=== PATIENT | male | born 1960 | race American Indian/Alaskan Native ===

== ENCOUNTER 2021-03-28 17:47 | Inpatient (IN) | payer OTHER ==
[2021-03-28] MEDS ORDERED: fentaNYL 100 MCG/2 ML INJ IV ONE (20:48)
[2021-03-28] MEDS ORDERED: SODIUM CHLORIDE 0.9% 1000 ML 1,000 ML IV ONE (20:48)
--- NOTE | 2021-03-28 20:50 | Emergency Department Report ---
HPI - General Chief Complaint: Syncope Time Seen by Provider: 03/28/21 20:35 - HPI HPI: [place] The patient is a 60-year-old male present with a chief complaint of syncope and left hip pain. Patient states he was in a supermarket and had just finished checking out when he began feeling lightheaded and dizzy and the patient states his next memory is waking up on the floor. Patient now complains of severe pain in his left hip. Patient has a history of bilateral hip replacement stating his left hip was replaced approximately 10 years ago. ED Past Medical Hx - Past Medical History Hx Hypertension: Yes Hx HIV: Yes (Last CD4 in the 400s Fall 2020) - Surgical History Hx Appendectomy: Yes Additional Surgical History: Bilateral hip replacement, herniorrhaphy, appendectomy - Family History Family history: no significant - Social History Smoking Status: Never Smoker Substance Use Type: None (Denies illicit drug) ED Review of Systems ROS: Stated complaint: SNYCOPE Other details as noted in HPI Constitutional: no symptoms reported Eyes: denies: eye pain ENT: denies: throat pain Respiratory: no symptoms reported Cardiovascular: denies: chest pain Endocrine: no symptoms reported Gastrointestinal: denies: abdominal pain Genitourinary: denies: dysuria Musculoskeletal: arthralgia Neurological: other (Lightheadedness, syncope). denies: headache Physical Exam - Physical Exam Vital Signs: Vital Signs 03/28/21 17:50 Temperature 98.1 F Pulse Rate 78 Respiratory 18 Rate Blood Pressure 107/88 [Left] O2 Sat by Pulse 99 Oximetry Physical Exam: GENERAL: The patient is well-developed well-nourished male lying on stretcher not appearing to be in acute distress. [] HEENT: Normocephalic. Atraumatic. Extraocular motions are intact. Patient has moist mucous membranes. NECK: Supple. Trachea midline CHEST/LUNGS: Clear to auscultation. There is no respiratory distress noted. HEART/CARDIOVASCULAR: Regular. There is no tachycardia. 2+ left DP ABDOMEN: Abdomen is soft, nontender. Patient has normal bowel sounds. There is no abdominal distention. SKIN: There is no rash. There is no edema. There is no diaphoresis. NEURO: The patient is awake, alert, and oriented. The patient is cooperative. The patient has no focal neurologic deficits. The patient has normal speech. Patient able to wiggle toes of left foot MUSCULOSKELETAL: The left lower extremity is shortened and internally rotated ED Course Vital Signs 03/28/21 17:50 Temperature 98.1 F Pulse Rate 78 Respiratory 18 Rate Blood Pressure 107/88 [Left] O2 Sat by Pulse 99 Oximetry - Consultations Consultation #1: 03/28/21 23:11 Nephrology paged 03/28/21 23:[address] Shah-recommends Kayexalate 60 g in addition to other meds already ordered. Recommends D5 with 3 A of sodium bicarb at 80 to 100 mL an hour. Recommends repeat BMP in 4 hours and if potassium is not trending down to call him. ED Medical Decision Making - Lab Data Result diagrams: 03/28/21 21:06 03/28/21 21:06 Laboratory Tests 03/28/21 03/28/21 03/28/21 21:06 21:06 21:06 WBC 12.1 H RBC 3.27 L Hgb 10.9 L Hct 33.6 L MCV 103 H MCH 33 H MCHC 33 RDW 12.6 L Plt Count 282 Lymph % (Auto) 19.8 [place] % (Auto) 6.1 Eos % (Auto) 0.5 Baso % (Auto) 0.5 Lymph # (Auto) 2.4 [place] # (Auto) 0.7 Eos # (Auto) 0.1 Baso # (Auto) 0.1 Seg Neutrophils % 73.1 H Seg Neutrophils # 8.9 H PT 13.6 INR 0.94 APTT 28.2 Sodium 134 L Potassium 6.5 H* Chloride 105.6 Carbon Dioxide 14 L Anion Gap 20 BUN 65 H Creatinine 2.3 H Estimated GFR 35 BUN/Creatinine Ratio 28 Glucose 133 H Calcium 9.6 Magnesium 2.30 Total Creatine Kinase 67 CK-MB (CK-2) 4.5 H CK-MB (CK-2) Rel Index 6.7 H Troponin T 0.054 H Triglycerides 258 H Cholesterol 176 LDL Cholesterol Direct 100 HDL Cholesterol 25 L Cholesterol/HDL Ratio 7.04 - EKG Data -: EKG Interpreted by Hi EKG shows normal: sinus rhythm Rate: normal - EKG Data When compared to previous EKG there are: previous EKG unavailable Interpretation: other (No ischemic changes seen. non-Peaked T waves) - Radiology Data Radiology results: report reviewed (Left hip x-ray), image reviewed (Left hip x- ray) interpreted by me: Left hip x-ray- acute fracture femoral shaft proximally [facility] [address] [place] [address] XRay Report Signed Patient: JUANITO CHRISTOPHER MR#: [id number] : 1960 Acct:[id number] Age/Sex: 60 / M ADM Date: 03/28/21 Loc: ED Attending Dr: Ordering Physician: RHONDA HARMAN MD Date of Service: 03/28/21 Procedure(s): XR hip 2-3V LT Accession Number(s): [id number] cc: RHONDA HARMAN MD Fluoro Time In Minutes: LEFT HIP 3 VIEWS INDICATION / CLINICAL INFORMATION: Fall with left hip pain.. COMPARISON: None available. FINDINGS: BONES / JOINT(S): There are bilateral hip prostheses. There is an acute, oblique fracture of the proximal left femur extending from the base of the greater trochanter laterally and extending inferiorly and medially into the subtrochanteric region. Mild displacement of the fracture fragments is noted. There is no evidence of dislocation. There is a transitional lumbosacral segment area SOFT TISSUES: No significant abnormality. ADDITIONAL FINDINGS: None. IMPRESSION: Acute fracture of the proximal femoral shaft which extends towards the base of the greater trochanter. Signer Name: Chandler Mckenzie MD Signed: 03/28/2021 9:48 PM Workstation Name: [id number] Transcribed By: RT Dictated By: Chandler Mckenzie MD Electronically Authenticated By: Chandler Mckenzie MD Signed Date/Time: 03/28/212147 DD/ 46 TD/TT: Print Cancel - Medical Decision Making Patient found to be hyperkalemic. Not stable for transfer to another facility at this time. Will admit here for stabilization - Differential Diagnosis Syncope, hip dislocation, hip fracture Critical care attestation.: If time is entered above; I have spent that time in minutes in the direct care of this critically ill patient, excluding procedure time. ED Disposition Clinical Impression: Fracture of left hip, Hyperkalemia, Renal insufficiency Disposition: ADMITTED INPATIENT Is pt being admited?: Yes Does the pt Need Aspirin: No Condition: Fair Referrals: PRIMARY CARE, [Primary Care Provider] - 3-5 Days Time of Disposition: 23:34 (Hospitalist called (Dr Nicole))
[2021-03-28 21:42] LABS: Basophils # (Auto) 0.1 K/mm3 (0.0-0.1); Basophils % (Auto) 0.5 % (0.0-1.8); Eosinophils # (Auto) 0.1 K/mm3 (0.0-0.4); Eosinophils % (Auto) 0.5 % (0.0-4.3); Hematocrit 33.6 % (35.5-45.6); Hemoglobin 10.9 gm/dl (11.8-15.2); Lymphocytes # (Auto) 2.4 K/mm3 (1.2-5.4); Lymphocytes % (Auto) 19.8 % (13.4-35.0); Mean Corpuscular HGB Conc 33 % (32-34); Mean Corpuscular Volume 103 fl (84-94); Monocytes # (Auto) 0.7 K/mm3 (0.0-0.8); Monocytes % (Auto) 6.1 % (0.0-7.3); Platelet Count 282 K/mm3 (140-440); Red Blood Count 3.27 M/mm3 (3.65-5.03); Red Cell Distribution Width 12.6 % (13.2-15.2)
[2021-03-28 21:50] LABS: Creatine Kinase MB 4.5 ng/mL (0.0-4.0)
[2021-03-28 21:51] LABS: Calcium 9.6 mg/dL (8.4-10.2)
--- NOTE | 2021-03-28 21:53 | XRay Report ---
LEFT HIP 3 VIEWS INDICATION / CLINICAL INFORMATION: Fall with left hip pain.. COMPARISON: None available. FINDINGS: BONES / JOINT(S): There are bilateral hip prostheses. There is an acute, oblique fracture of the prox imal left femur extending from the base of the greater trochanter laterally and extending inferiorly and medially into the subtrochanteric region. Mild displacement of the fracture fragments is noted. T here is no evidence of dislocation. There is a transitional lumbosacral segment area SOFT TISSUES: No significant abnormality. ADDITIONAL FINDINGS: None. IMPRESSION: Acute fracture of the proximal femoral shaft which extends towards the base of the greate r trochanter. Signer Name: Chandler Mckenzie MD Signed: 03/28/2021 9:48 PM Workstation Name: [id number]
[2021-03-28 22:02] LABS: Chol/HDL Ratio 7.04 %; INR 0.94 (0.87-1.13)
[2021-03-28 22:03] LABS: Partial Thromboplastin Time 28.2 Sec. (24.2-36.6)
--- NOTE | 2021-03-28 22:25 | Cat Scan Report ---
CT HEAD WITHOUT CONTRAST INDICATION / CLINICAL INFORMATION: Syncope. TECHNIQUE: All CT scans at this location are performed using CT dose reduction for ALARA by means of automated e xposure control. COMPARISON: Head CT 05/01/2012 FINDINGS: HEMORRHAGE: No evidence of intracranial hemorrhage or extra-axial fluid collection. EXTRA-AXIAL SPACES: Cortical sulci and sylvian fissures are within normal limits for the patient's ag e of 60 years. Basilar cisterns have an unremarkable appearance. VENTRICULAR SYSTEM: The third and lateral ventricles are enlarged out of proportion to the cortical s ulci. This probably reflects the presence of central greater than cortical atrophy. This has progress ed since baseline study 05/01/2012. CEREBRAL PARENCHYMA: Periventricular and deep white matter lucency is observed. This is probably seco ndary to microvascular ischemic change. There is no indication of recent infarction. No areas of ence phalomalacia are identified. MIDLINE SHIFT OR HERNIATION: There is no mass effect. CEREBELLUM / BRAINSTEM: Brainstem and cerebellum have an unremarkable appearance. 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 MIDLINE STRUCTURES:No abnormalities of the pituitary gland or pineal region are observed INTRACRANIAL VESSELS:Calcified atherosclerotic plaque is present along the course of the cavernous se gments of both internal carotid arteries. Similar findings are seen at the distal vertebral arteries. ORBITS: visualized portions of the orbits have an unremarkable appearance. SOFT TISSUES of HEAD: No significant abnormality. CALVARIUM: Evaluation of bone windows reveals no abnormalities. PARANASAL SINUSES / MASTOID AIR CELLS: Paranasal sinuses are free from inflammatory mucosal disease. Mastoid air cells are normally pneumatized. IMPRESSION: 1. Central greater than cortical parenchymal volume loss and microvascular ischemic change. 2. No acute intracranial abnormality. Signer Name: Benjamin Ayon MD Signed: 03/28/2021 10:21 PM Workstation Name: [id number]
[2021-03-28] MEDS ORDERED: INSULIN REGULAR, HUMAN 100 UNITS/1 ML IV ONE (22:30)
[2021-03-28] MEDS ORDERED: SODIUM BICARB 8.4% 50 MEQ/50 ML SYRINGE IV ONE (22:30)
[2021-03-28] MEDS ORDERED: DEXTROSE 50% IN WATER (25GM) 50 ML SYRINGE IV ONE (22:30)
[2021-03-28] MEDS ORDERED: CALCIUM GLUCONATE 1,000 MG in SODIUM CHLORIDE 0.9% 100 ML IV ONE (23:10)
[2021-03-28] MEDS ORDERED: ALBUTEROL 2.5 MG/3 ML NEBU IH ONE (23:11)
[2021-03-28] MEDS ORDERED: SODIUM POLYSTYRENE 15 GM/60 ML ORAL LIQD PO ONE (23:19)
[2021-03-28] MEDS ORDERED: HYDROmorphone 1 MG/1 ML INJ IV ONE (23:26)
[2021-03-28] MEDS ORDERED: SODIUM BICARBONATE 150 MEQ in DEXTROSE 5% IN WATER 1,000 ML IV ONE (23:50)
[2021-03-29] MEDS ORDERED: MAGNESIUM HYDROXIDE (MOM) ORAL LIQD UDC PO PRN (00:46)
[2021-03-29] MEDS ORDERED: ACETAMINOPHEN 325 MG TAB PO PRN (00:46)
[2021-03-29] MEDS ORDERED: SODIUM CHLORIDE 0.9% 1000 ML 1,000 ML IV SCH (01:00)
--- NOTE | 2021-03-29 01:26 | History and Physical Report ---
History of Present Illness Date of examination: 03/29/21 Date of admission: 03/29/21 00:01 Chief complaint: Left hip pain Syncope History of present illness: 60-year-old -[place] male with known history of hypertension, HIV and history of bilateral hip replacement brought into the emergency room today for evaluation of left hip pain and syncope. Patient was at a grocery store and I finished checking out when he felt lightheaded and dizzy and subsequently found himself on the floor. He denies any head injury and denies any headache, denies any blurry vision and no diaphoresis. Patient denies any chest pain or shortness of breath, no nausea vomiting no abdominal pain. Denies any hematuria or dysuria. Upon arrival in the emergency room today he complained of severe pain in his left hip. Work-up in the emergency room today, x-ray of the hip reveals acute fracture of the proximal femoral shaft which extends towards the base of the greater troc hanter. CT scan of the head shows no acute intracranial abnormality. Past History Past Medical History: diabetes, HIV/AIDS (CD4 count in the 400s-in the fall ), hypertension Past Surgical History: appendectomy, Other (Bilateral hip replacement, herniorrhaphy, appendectomy) Social history: no significant social history Family history: no significant family history Medications and Allergies Allergies Allergy/AdvReac Type Severity Reaction Status Date / Time No Known Allergies Allergy Unverified 03/28/21 17:49 Active Meds: Active Medications Acetaminophen (Acetaminophen 325 Mg Tab) 650 mg PO Q4H PRN PRN Reason: Pain MILD(1-3)/Fever >100.5/OLIVAREZ Sodium Bicarbonate 150 meq/ (Dextrose) 1,150 mls @ 100 mls/hr IV DIRECT ONE Stop: 03/29/21 11:19 Last Admin: 03/28/21 23:51 Dose: 100 mls/hr Sodium Chloride (Nacl 0.9% 1000 Ml) 1,000 mls @ 125 mls/hr IV DIRECT SUELLEN Magnesium Hydroxide (Magnesium Hydroxide (Mom) Oral Liqd Udc) 30 ml PO Q4H PRN PRN Reason: Constipation Morphine Sulfate (Morphine 2 Mg/1 Ml Inj) 2 mg IV Q4H PRN PRN Reason: Pain, Moderate (4-6) Morphine Sulfate (Morphine 4 Mg/1 Ml Inj) 4 mg IV Q4H PRN PRN Reason: Pain , Severe (7-10) Ondansetron HCl (Ondansetron 4 Mg/2 Ml Inj) 4 mg IV Q8H PRN PRN Reason: Nausea And Vomiting Sodium Chloride (Sodium Chloride 0.9% 10 Ml Flush Syringe) 10 ml IV BID SUELLEN Sodium Chloride (Sodium Chloride 0.9% 10 Ml Flush Syringe) 10 ml IV PRN PRN PRN Reason: LINE FLUSH Review of Systems Constitutional: no fever, no chills Ears, nose, mouth and throat: no nasal congestion, no sore throat Cardiovascular: no chest pain, no palpitations Respiratory: no cough, no shortness of breath Gastrointestinal: no abdominal pain, no nausea, no vomiting, no diarrhea Genitourinary Male: no dysuria, no hematuria, no flank pain, no nocturia Musculoskeletal: no neck pain, no low back pain Integumentary: no rash, no pruritis Neurological: no headaches, no confusion Psychiatric: no anxiety, no depression Endocrine: no polyphagia, no polydipsia, no polyuria, no nocturia Exam - Constitutional Vitals: Temp Pulse Resp BP Pulse Ox 98.1 F 80 16 107/88 99 03/28/21 17:50 03/28/21 23:48 03/28/21 23:48 03/28/21 17:50 03/28/21 17:50 General appearance: Present: no acute distress, well-nourished - EENT Eyes: Present: PERRL, EOM intact. Absent: scleral icterus ENT: hearing intact, clear oral mucosa, dentition normal - Neck Neck: Present: supple, normal ROM - Respiratory Respiratory effort: normal Respiratory: bilateral: CTA - Cardiovascular Rhythm: regular Heart Sounds: Present: S1 & S2. Absent: gallop, systolic murmur, diastolic murmur, rub, click - Extremities Extremities: no ischemia, pulses intact, pulses symmetrical, No edema, normal color, Full ROM, abnormal (Left lower extremity internally rotated) Peripheral Pulses: within normal limits - Abdominal General gastrointestinal: Present: soft, non-tender, non-distended, normal bowel sounds. Absent: mass - Integumentary Integumentary: Present: clear, warm, dry. Absent: rash - Musculoskeletal Musculoskeletal: strength equal bilaterally - Psychiatric Psychiatric: appropriate mood/affect, intact judgment & insight, memory intact - Neurologic Neurologic: CNII-XII intact, no focal deficits, moves all extremities HEART Score - HEART Score Troponin: Troponin T 0.054 ng/mL (0.00-0.029) H 03/28/21 21:06 Results - Labs CBC & Chem 7: 03/28/21 21:06 03/29/21 04:23 Labs: Abnormal lab results 03/28/21 03/28/21 Range/Units 21:06 21:06 WBC 12.1 H (4.5-11.0) K/mm3 RBC 3.27 L (3.65-5.03) M/mm3 Hgb 10.9 L (11.8-15.2) gm/dl Hct 33.6 L (35.5-45.6) % MCV 103 H (84-94) fl MCH 33 H (28-32) pg RDW 12.6 L (13.2-15.2) % Seg Neutrophils % 73.1 H (40.0-70.0) % Seg Neutrophils # 8.9 H (1.8-7.7) K/mm3 Sodium 134 L (137-145) mmol/L Potassium 6.5 H* (3.6-5.0) mmol/L Carbon Dioxide 14 L (22-30) mmol/L BUN 65 H (9-20) mg/dL Creatinine 2.3 H (0.8-1.3) mg/dL Glucose 133 H (75-100) mg/dL CK-MB (CK-2) 4.5 H (0.0-4.0) ng/mL CK-MB (CK-2) Rel Index 6.7 H (0-4) Troponin T 0.054 H (0.00-0.029) ng/mL Triglycerides 258 H (2-149) mg/dL HDL Cholesterol 25 L (40-59) mg/dL Assessment and Plan - Patient Problems (1) Fracture of left hip Current Visit: Yes Status: Acute Plan to address problem: Patient admitted and placed on analgesic medication. Will await orthopedic surgery evaluation. No orthopedic surgery service today. (2) Hyperkalemia Current Visit: Yes Status: Acute Plan to address problem: Patient given sodium bicarbonate, albuterol neb treatment, insulin and glucose and Kayexalate. Will monitor potassium levels. Await further evaluation by nephrology. (3) Hypertension Current Visit: Yes Status: Acute Plan to address problem: We will resume routine home medications and monitor vital signs closely. (4) History of HIV infection Current Visit: Yes Status: Acute Plan to address problem: Continue routine home medications. CD4 count was in the 400s in fall 2020 (5) Renal insufficiency Current Visit: Yes Status: Acute Plan to address problem: Patient placed on IV fluid. Will monitor BUN and creatinine. Will avoid nephrotoxic agents. Consult placed to nephrology for evaluation. (6) DVT prophylaxis Current Visit: Yes Status: Acute Plan to address problem: Patient placed on sequential compression device. (7) Full code status Current Visit: Yes Status: Acute Plan to address problem: Patient is full code.
[2021-03-29] MEDS: MORPHINE 4 MG/1 ML INJ IV PRN ×3 (03:26→12:40)
[2021-03-29] MEDS: MORPHINE 2 MG/1 ML INJ IV PRN (05:04)
[2021-03-29 05:12] LABS: Calcium 8.9 mg/dL (8.4-10.2)
[2021-03-29] MEDS ORDERED: SODIUM POLYSTYRENE 15 GM/60 ML ORAL LIQD PO ONE (06:58)
[2021-03-29] MEDS: ONDANSETRON 4 MG/2 ML INJ IV PRN (08:40)
--- NOTE | 2021-03-29 09:30 | Consultation ---
History of Present Illness - Reason for Consult Consult date: 03/29/21 acute renal failure, hyperkalemia - History of Present Illness Mr. Ribeiro is a 60yo -[place] male with stage III CKD, type II DM, hypertension, HIV and history of bilateral hip replacement wh presented to the ED with c/o left hip pain following syncopal episode. He reports being in usual state of health until yesterday whe he began experiencing dizziness followed by a syncopal episode. He denies chest pain, palpitations. He reports poor po intake and nausea. However, he denies vomiting and diarrhea. He denies dysuria, hematuria. Upon arrival in the emergency room today he complained of severe pain in his left hip. Work-up in the emergency room today, x-ray of the hip reveals acute fracture of the proximal femoral shaft which extends towards the base of the greater trochanter. Past History Past Medical History: diabetes, HIV/AIDS (CD4 count in the 400s-in the fall 2020), hypertension, other (stage III CKD - baseline SCr 1.9mg/dL) Past Surgical History: appendectomy, Other (Bilateral hip replacement, herniorrhaphy, appendectomy) Social history: no significant social history Family history: no significant family history Medications and Allergies Allergies Allergy/AdvReac Type Severity Reaction Status Date / Time No Known Allergies Allergy Unverified 03/28/21 17:49 Active Meds: Active Medications Acetaminophen (Acetaminophen 325 Mg Tab) 650 mg PO Q4H PRN PRN Reason: Pain MILD(1-3)/Fever >100.5/OLIVAREZ Sodium Bicarbonate 150 meq/ (Dextrose) 1,150 mls @ 100 mls/hr IV DIRECT ONE Stop: 03/29/21 11:19 Last Admin: 03/28/21 23:51 Dose: 100 mls/hr Sodium Chloride (Nacl 0.9% 1000 Ml) 1,000 mls @ 125 mls/hr IV DIRECT SUELLEN Magnesium Hydroxide (Magnesium Hydroxide (Mom) Oral Liqd Udc) 30 ml PO Q4H PRN PRN Reason: Constipation Morphine Sulfate (Morphine 2 Mg/1 Ml Inj) 2 mg IV Q4H PRN PRN Reason: Pain, Moderate (4-6) Last Admin: 03/29/21 05:04 Dose: 2 mg Morphine Sulfate (Morphine 4 Mg/1 Ml Inj) 4 mg IV Q4H PRN PRN Reason: Pain , Severe (7-10) Last Admin: 03/29/21 08:40 Dose: 4 mg Ondansetron HCl (Ondansetron 4 Mg/2 Ml Inj) 4 mg IV Q8H PRN PRN Reason: Nausea And Vomiting Last Admin: 03/29/21 08:40 Dose: 4 mg Sodium Chloride (Sodium Chloride 0.9% 10 Ml Flush Syringe) 10 ml IV BID SUELLEN Sodium Chloride (Sodium Chloride 0.9% 10 Ml Flush Syringe) 10 ml IV PRN PRN PRN Reason: LINE FLUSH Review of Systems All systems: negative Exam - Vital Signs Vital signs: Vital Signs Temp Pulse Resp BP Pulse Ox 98.1 F 78 18 107/88 99 03/28/21 17:50 03/28/21 17:50 03/28/21 17:50 03/28/21 17:50 03/28/21 17:50 - General Appearance General appearance: well-developed, well-nourished EENT: ATNC Respiratory: Clear to Ascultation Heart: regular, S1S2 Gastrointestinal: Present: normal. Absent: tenderness, distended Integumentary: no rash, warm and dry Neurologic: no focal deficit, alert and oriented x3 Musculoskeletal: Present: other (no edema) Psychiatric: cooperative Results - Lab Results 03/28/21 21:06 03/29/21 04:23 Most recent lab results Calcium 8.9 mg/dL (8.4-10.2) 03/29/21 04:23 Magnesium 2.30 mg/dL (1.7-2.3) 03/28/21 21:06 Assessment and Plan Impression: * Acute kidney injury on stage III CKD (followed by Dr. Radha Szymanski) --Baseline SCr 1.9mg/dL; SCr 1.87mg/dL on Mar 01 2021 * Left femur fracture * Syncope * Hyperkalemia * Metabolic acidosis * Hypertension - now with relative hypotension * Type II DM * Anemia * Hx of C Diff colitis (hospitalization - Dec 2020 and Feb 2021) Plan: * No acute need for renal replacement therapy * Hyperkalemia improved with medical management * Continue IVF. Will change to 0.45 NS w/ 75meq bicarb 125ml/h * Will obtain urine studies: UA, UPCR and urine lytes * Obtain serologic work up for ANGI * Will order renal ultrasound * Dose medications for renal function * Avoid potential nephrotoxins * Strict I/O * AM labs
[2021-03-29 10:56] LABS: Hepatitis C Virus Antibody Non-Reactive (NonReactive)
[2021-03-29 11:20] LABS: Hepatitis B Surface Antigen Nonreactive (Negative)
[2021-03-29] MEDS ORDERED: SODIUM CHLORIDE 0.45% 1000 ML 1,000 ML with SODIUM BICARBONATE 75 MEQ IV SCH (14:00)
--- NOTE | 2021-03-29 15:49 | Consultation ---
History of Present Illness - [facility] Consult date: 03/29/21 History of present illness: ORTHOPAEDIC CONSULT Assessment: Periprosthetic fracture, left proximal femur Recommendation: 1. Conservative care for the moment with toe-touch weightbearing and strict physical therapy guidelines; protected weightbearing at all times. 2. If there is no progress, the index surgeon should be the person to operate on this periprosthetic fracture; will reassess in 48 hours. 3. SCDs/DVT prophylaxis regimen Discussion: I was not contacted about this consult but while making rounds, happened to speak with the hospitalist who shed some light on this patient. There is a nondisplaced periprosthetic fracture in the proximal one half of the total hip prosthesis affecting only the femoral side. There is no comminution or angulation. Past History Past Medical History: diabetes, HIV/AIDS (CD4 count in the 400s-in the fall 2020), hypertension, other (stage III CKD - baseline SCr 1.9mg/dL) Past Surgical History: appendectomy, Other (Bilateral hip replacement, herniorrhaphy, appendectomy) Social history: no significant social history Family history: no significant family history Medications and Allergies Allergies Allergy/AdvReac Type Severity Reaction Status Date / Time No Known Allergies Allergy Unverified 03/28/21 17:49 Active Meds: Active Medications Acetaminophen (Acetaminophen 325 Mg Tab) 650 mg PO Q4H PRN PRN Reason: Pain MILD(1-3)/Fever >100.5/OLIVAREZ Sodium Bicarbonate 75 meq/ (Sodium Chloride) 1,075 mls @ 125 mls/hr IV DIRECT SUELLEN Magnesium Hydroxide (Magnesium Hydroxide (Mom) Oral Liqd Udc) 30 ml PO Q4H PRN PRN Reason: Constipation Morphine Sulfate (Morphine 2 Mg/1 Ml Inj) 2 mg IV Q4H PRN PRN Reason: Pain, Moderate (4-6) Last Admin: 03/29/21 05:04 Dose: 2 mg Morphine Sulfate (Morphine 4 Mg/1 Ml Inj) 4 mg IV Q4H PRN PRN Reason: Pain , Severe (7-10) Last Admin: 03/29/21 08:40 Dose: 4 mg Ondansetron HCl (Ondansetron 4 Mg/2 Ml Inj) 4 mg IV Q8H PRN PRN Reason: Nausea And Vomiting Last Admin: 03/29/21 08:40 Dose: 4 mg Sodium Chloride (Sodium Chloride 0.9% 10 Ml Flush Syringe) 10 ml IV BID SUELLEN Sodium Chloride (Sodium Chloride 0.9% 10 Ml Flush Syringe) 10 ml IV PRN PRN PRN Reason: LINE FLUSH
--- NOTE | 2021-03-29 16:34 | Event Note ---
Date: 03/29/21 Patient seen and examined This is a second visit after midnight 60-year-old -[place] male with known history of hypertension, HIV and history of bilateral hip replacement brought into the emergency room today for evaluation of left hip pain and syncope. In the ER patient also noted to have hyperkalemia and ANGI on CKD Nephrology and orthopedic consulted Patient told me today that he was positive for COVID as outpatient, ordered for repeat COVID test Patient resting on room air, will follow inflammatory markers, ordered for morning labs and follow orthopedic recommendation -It took me about 28 minutes to reevaluate and reasses this patient, discussed with RN/CM, review medical documents, lab results, imaging, medication list and placing order.
--- NOTE | 2021-03-29 18:54 | Ultrasound Report ---
ULTRASOUND RENAL INDICATION / CLINICAL INFORMATION: Renal insufficiency. COMPARISON: None available. FINDINGS: RIGHT KIDNEY: - Length = 11.3 cm. [Normal > 9.0 cm] - Parenchymal Thickness = 1.9 cm. [Normal > 1.5 cm] - Echogenicity: Normal -- hypoechoic or isoechoic to liver/spleen. - Hydronephrosis: None. - Cyst or mass: 2.2 cm simple cyst in the lower pole. LEFT KIDNEY: - Length = 11.3 cm. [Normal > 9.0 cm] - Parenchymal Thickness = 1.8 cm. [Normal > 1.5 cm] - Echogenicity: Normal -- hypoechoic or isoechoic to liver/spleen. - Hydronephrosis: None. - Cyst or mass: 1 cm simple cyst in the mid to lower kidney. URINARY BLADDER: There is mild diffuse thickening of the wall of the urinary bladder. ADDITIONAL FINDINGS: None. IMPRESSION: 1. No evidence of medical renal disease or hydronephrosis. Renal Parenchymal Thickness Parenchyma = Cortex + Medullary Pyramid - Normal >= 1.5 cm - Mild thinning = 1.0-1.49 cm - Moderate thinning = 0.5-0.99 cm - Severe thinning < 0.5 cm Signer Name: Chandler Mckenzie MD Signed: 03/29/2021 6:49 PM Workstation Name: [id number]
[2021-03-30] MEDS: MORPHINE 4 MG/1 ML INJ IV PRN ×4 (00:50→23:39)
[2021-03-30 01:40] LABS: Bacteria,Urine 1+ /HPF (Negative); Bilirubin,Urine NEG (Negative); Blood,Urine NEG (Negative); Color,Urine Yellow (Yellow); Mucus,Urine FEW /HPF; Urobilinogen,Urine < 2.0 mg/dL (<2.0)
[2021-03-30] MEDS: ACETAMINOPHEN 325 MG TAB PO PRN (02:47)
[2021-03-30] MEDS ORDERED: SODIUM CHLORIDE 0.45% IV ONE (03:18)
[2021-03-30] MEDS: SODIUM BICARBONATE 75 MEQ in SODIUM CHLORIDE 0.45% 1000 ML 1,000 ML IV SCH (03:52)
[2021-03-30] MEDS: MORPHINE 2 MG/1 ML INJ IV PRN ×2 (04:21→08:43)
[2021-03-30 06:18] LABS: Basophils # (Auto) 0.1 K/mm3 (0.0-0.1); Basophils % (Auto) 0.5 % (0.0-1.8); Eosinophils # (Auto) 0.1 K/mm3 (0.0-0.4); Eosinophils % (Auto) 1.1 % (0.0-4.3); Hematocrit 29.2 % (35.5-45.6); Hemoglobin 9.8 gm/dl (11.8-15.2); Lymphocytes # (Auto) 2.1 K/mm3 (1.2-5.4); Lymphocytes % (Auto) 20.1 % (13.4-35.0); Mean Corpuscular HGB Conc 34 % (32-34); Mean Corpuscular Volume 101 fl (84-94); Monocytes # (Auto) 0.8 K/mm3 (0.0-0.8); Platelet Count 259 K/mm3 (140-440); Red Cell Distribution Width 12.3 % (13.2-15.2)
[2021-03-30 06:38] LABS: Calcium 8.9 mg/dL (8.4-10.2)
--- NOTE | 2021-03-30 11:54 | Progress Note ---
Subjective Interval history: Patient was seen today for follow-up of multiple renal related issues No complaints of any chest pain pressure or shortness of breath Interdisciplinary notes that also reviewed Events of 24 hours vitals labs intake output medications were reviewed Past medical history: Reviewed Family history: Reviewed Social history: Reviewed Allergies: Reviewed Physical examination: Vitals: Reviewed HEENT: No pallor or icterus oral mucosa moist Neck: Supple no JVD no thyromegaly Chest: Bilateral clear to auscultation anteriorly Heart: Regular rate and rhythm S1-S2 heard no S3-S4 Abdomen: Soft nontender no voluntary guarding rigidity rebound Extremity: Dry skin less than 1+ peripheral edema Psychiatric: No evidence of agitation and aggression noted Dermatology: No petechial rashes Labs and x-rays: Reviewed from today Assessment and plan #Acute kidney injury: Underlying stage III chronic kidney disease baseline cr eatinine is around 1.8 as of February 2021, patient is being followed by Dr. Trevin Szymanski, nephrology in the outpatient setting Current creatinine is around 2.6 Current creatinine is 2.4 it was 2.6 yesterday Renal ultrasonogram: Shows no evidence of any chronic kidney disease simple cyst in each kidney #Mild metabolic acidosis bicarbonate 17 needs correction and close follow-up Continue with bicarbonate #Anemia in chronic kidney disease current hemoglobin 10.9 no indication for erythropoietin at this time #Mild hyponatremia to monitor and follow: Appears to be improving #Bone mineral disorder and secondary hyperparathyroidism calcium satisfactory #Mild hyperkalemia: Currently better at 5.1, #Admitted with dizziness syncope, poor by mouth intake, admitted with acute fracture of the proximal femoral shaft Patient was adequately counseled and educated regarding all the renal related issues Laboratory studies, have been explained to the patient All questions were answered and simple Thai We'll continue to follow and make recommendation for renal standpoint Objective - Vital Signs Vital signs: Vital Signs - 12hr 03/30/21 03/30/21 03/30/21 00:00 00:30 01:00 Temperature Pulse Rate 80 84 81 Respiratory Rate Blood Pressure 120/78 114/75 127/79 O2 Sat by Pulse 97 98 97 Oximetry 03/30/21 03/30/21 03/30/21 01:10 01:20 01:30 Temperature Pulse Rate 81 81 83 Respiratory Rate Blood Pressure 127/79 127/79 125/83 O2 Sat by Pulse 98 98 99 Oximetry 03/30/21 03/30/21 03/30/21 01:40 01:50 02:00 Temperature Pulse Rate 85 81 80 Respiratory Rate Blood Pressure 125/83 125/83 124/80 O2 Sat by Pulse 100 98 97 Oximetry 03/30/21 03/30/21 03/30/21 02:10 03:13 07:24 Temperature 98.1 F 98.9 F Pulse Rate 85 86 85 Respiratory 18 18 Rate Blood Pressure 124/80 135/85 121/69 O2 Sat by Pulse 99 97 Oximetry - Lab 03/30/21 05:12 03/30/21 05:12 Most recent lab results Calcium 8.9 mg/dL (8.4-10.2) 03/30/21 05:12 Magnesium 2.30 mg/dL (1.7-2.3) 03/28/21 21:06 Medications & Allergies - Medications Allergies/Adverse Reactions: Allergies No Known Allergies Allergy (Unverified 03/28/21 17:49) Home Medications: Home Medications Medication Instructions Recorded Confirmed Last Taken Type Unobtainable 03/30/21 03/30/21 Unknown History Active Medications: Generic Name Dose Route Start Last Admin Trade Name Freq PRN Reason Stop Dose Admin Acetaminophen 650 mg 03/29/21 00:46 03/30/21 02:47 Acetaminophen 325 Mg Tab PO 650 mg Q4H PRN Administration Pain MILD(1-3)/Fever >100.5/OLIVAREZ Sodium Bicarbonate 75 meq/ 1,075 mls @ 125 mls/hr 03/30/21 04:00 03/30/21 03:52 Sodium Chloride IV 125 mls/hr DIRECT SUELLEN Administration Magnesium Hydroxide 30 ml 03/29/21 00:46 Magnesium Hydroxide (Mom) Oral Liqd Udc PO Q4H PRN Constipation Morphine Sulfate 2 mg 03/29/21 00:46 03/30/21 08:43 Morphine 2 Mg/1 Ml Inj IV 2 mg Q4H PRN Administration Pain, Moderate (4-6) Morphine Sulfate 4 mg 03/29/21 00:46 03/30/21 00:50 Morphine 4 Mg/1 Ml Inj IV 4 mg Q4H PRN Administration Pain , Severe (7-10) Ondansetron HCl 4 mg 03/29/21 00:46 03/29/21 08:40 Ondansetron 4 Mg/2 Ml Inj IV 4 mg Q8H PRN Administration Nausea And Vomiting Sodium Chloride 10 ml 03/29/21 10:00 03/30/21 08:59 Sodium Chloride 0.9% 10 Ml Flush Syringe IV 10 ml BID SUELLEN Administration Sodium Chloride 10 ml 03/29/21 00:46 Sodium Chloride 0.9% 10 Ml Flush Syringe IV PRN PRN LINE FLUSH
[2021-03-30] MEDS: oxyCODONE /ACETAMINOPHEN 5-325MG TAB PO PRN (15:00)
--- NOTE | 2021-03-30 17:36 | Progress Note ---
Assessment and Plan 60-year-old -[place] male with known history of hypertension, HIV and history of bilateral hip replacement brought into the emergency room for evaluation of left hip pain and syncope. In the ER patient also noted to have hyperkalemia and ANGI on CKD. x-ray of the hip reveals acute fracture of the proximal femoral shaft which ext ends towards the base of the greater trochanter Nephrology and orthopedic consulted. Patient also mentioned that he was positive for COVID as outpatient, ordered for repeat COVID test Assessment and Plan: -- Fracture of prosthetic left hip Patient admitted and placed on analgesic medication. Orthopedic evaluated and recommended no surgical intervention necessary. -- Hyperkalemia Patient given sodium bicarbonate, albuterol neb treatment, insulin and glucose and Kayexalate. Will monitor potassium levels. Nephrology consulted, follow BMP -- Hypertension We will resume routine home medications and monitor vital signs closely. --Positive for COVID-19 Patient tested positive as outpatient, repeat test also positive Follow inflammatory markers, patient resting on room air and asymptomatic No need for dexamethasone on remdesivir --History of HIV infection Continue routine home medications. CD4 count was in the 400s in fall 2020 --ANGI on possible CKD Patient placed on IV fluid. Will monitor BUN and creatinine. Will avoid nephrotoxic agents. Consult placed to nephrology for evaluation. --DVT prophylaxis Patient placed on sequential compression device. -- Full code status Daily clinical course: 03/30: Continue to monitor potassium and creatinine level. Nephrology following. COVID-19 test is positive but patient is asymptomatic so no need for dexamethasone or remdesivir. Will consult ID for further recommendation. Ordered PT eval Subjective Date of service: 03/30/21 Interval history: Patient seen and examined. Medical records and medication list reviewed. No acute event overnight noted by the RN. Patient denies any chest pain or difficulty breathing. Patient is tolerating diet. Complains of left hip pain Discussed plan of care at bedside with patient. Objective - Exam Narrative Exam: Limited physical exam due to COVID-19 pandemic to minimize transmission of the disease and to preserve PPE. Vital reviewed and stable. GENERAL: well-developed well-nourished -[place] male lying on bed appeared to be in no discomfort. HEENT: Normocephalic. Atraumatic. NECK: Supple. CHEST/LUNGS: breathing nonlabored. HEART/CARDIOVASCULAR: Heart rate stable on telemetry ABDOMEN: Visibly not distended SKIN: There is no rash NEURO: No focal motor deficit. Follows command. MUSCULOSKELETAL: Left hip pain and tenderness with restricted movement EXTRIMITY: No swelling, no cyanosis or clubbing. PSYCH: Cooperative. - Constitutional Vitals: Vital Signs - 12hr 03/30/21 03/30/21 03/30/21 07:24 10:00 13:00 Temperature 98.9 F Pulse Rate 85 86 Respiratory 18 Rate Blood Pressure 121/69 Blood Pressure [Left] O2 Sat by Pulse 97 98 Oximetry 03/30/21 16:24 Temperature 98.6 F Pulse Rate 86 Respiratory 18 Rate Blood Pressure Blood Pressure 120/61 [Left] O2 Sat by Pulse 92 Oximetry - Labs CBC & Chem 7: 03/30/21 05:12 03/31/21 09:41 Labs: Abnormal lab results 03/30/21 03/30/21 03/30/21 Range/Units 01:24 05:12 05:12 RBC 2.90 L (3.65-5.03) M/mm3 Hgb 9.8 L (11.8-15.2) gm/dl Hct 29.2 L (35.5-45.6) % MCV 101 H (84-94) fl MCH 34 H (28-32) pg RDW 12.3 L (13.2-15.2) % [place] % (Auto) 8.0 H (0.0-7.3) % Seg Neutrophils % 70.3 H (40.0-70.0) % Potassium 5.1 H (3.6-5.0) mmol/L Chloride 109.0 H (98-107) mmol/L Carbon Dioxide 17 L (22-30) mmol/L BUN 62 H (9-20) mg/dL Creatinine 2.4 H (0.8-1.3) mg/dL Glucose 114 H (75-100) mg/dL POC Glucose (70-105) mg/dL Urine WBC (Auto) 134.0 H (0.0-6.0) /HPF Coronavirus (PCR) (Negative) 03/30/21 03/30/21 Range/Units 10:00 11:17 RBC (3.65-5.03) M/mm3 Hgb (11.8-15.2) gm/dl Hct (35.5-45.6) % MCV (84-94) fl MCH (28-32) pg RDW (13.2-15.2) % [place] % (Auto) (0.0-7.3) % Seg Neutrophils % (40.0-70.0) % Potassium (3.6-5.0) mmol/L Chloride (98-107) mmol/L Carbon Dioxide (22-30) mmol/L BUN (9-20) mg/dL Creatinine (0.8-1.3) mg/dL Glucose (75-100) mg/dL POC Glucose 137 H (70-105) mg/dL Urine WBC (Auto) (0.0-6.0) /HPF Coronavirus (PCR) Positive A (Negative) HEART Score - HEART Score Troponin: Troponin T 0.054 ng/mL (0.00-0.029) H 03/28/21 21:06
[2021-03-31] MEDS: SODIUM BICARBONATE 75 MEQ in SODIUM CHLORIDE 0.45% 1000 ML 1,000 ML IV SCH (00:15)
[2021-03-31] MEDS: MORPHINE 4 MG/1 ML INJ IV PRN ×3 (04:41→17:21)
[2021-03-31 10:36] LABS: Calcium 9.5 mg/dL (8.4-10.2)
[2021-03-31] MEDS: oxyCODONE /ACETAMINOPHEN 5-325MG TAB PO PRN ×2 (11:51→20:08)
--- NOTE | 2021-03-31 18:10 | Progress Note ---
Assessment and Plan 60-year-old -[place] male with known history of hypertension, HIV and history of bilateral hip replacement brought into the emergency room for evaluation of left hip pain and syncope. In the ER patient also noted to have hyperkalemia and ANGI on CKD. x-ray of the hip reveals acute fracture of the proximal femoral shaft which ext ends towards the base of the greater trochanter Nephrology and orthopedic consulted. Patient also mentioned that he was positive for COVID as outpatient, ordered for repeat COVID test Assessment and Plan: -- Fracture of prosthetic left hip Patient admitted and placed on analgesic medication. Orthopedic evaluated and recommended no surgical intervention necessary. -- Hyperkalemia Patient given sodium bicarbonate, albuterol neb treatment, insulin and glucose and Kayexalate. Will monitor potassium levels. Nephrology consulted, follow BMP -- Hypertension We will cont routine home medications and monitor vital signs closely. --Positive for COVID-19 Patient tested positive as outpatient, repeat test also positive Follow inflammatory markers, patient resting on room air and asymptomatic No need for dexamethasone on remdesivir --History of HIV infection Continue routine home medications. CD4 count was in the 400s in fall 2020 --ANGI on possible CKD Patient placed on IV fluid. Will monitor BUN and creatinine. Will avoid nephrotoxic agents. Consult placed to nephrology for evaluation. --DVT prophylaxis Patient placed on sequential compression device. -- Full code status Daily clinical course: 03/30: Continue to monitor potassium and creatinine level. Nephrology following. COVID-19 test is positive but patient is asymptomatic so no need for dexamethasone or remdesivir. Will consult ID for further recommendation. Ordered PT eval 03/31: Improved potassium and creatinine level. Wait for PT eval and ID recommendation. Monitor BMP. If BMP stable and clears by PT possible discharge tomorrow Subjective Date of service: 03/31/21 Interval history: Patient seen and examined. Medical records and medication list reviewed. No acute event overnight noted by the RN. Patient denies any chest pain or difficulty breathing. Patient is tolerating diet. Improving left hip pain Discussed plan of care at bedside with patient. Objective - Exam Narrative Exam: Limited physical exam due to COVID-19 pandemic to minimize transmission of the disease and to preserve PPE. Vital reviewed and stable. GENERAL: well-developed well-nourished -[place] male lying on bed appeared to be in no discomfort. HEENT: Normocephalic. Atraumatic. NECK: Supple. CHEST/LUNGS: breathing nonlabored. HEART/CARDIOVASCULAR: Heart rate stable on telemetry ABDOMEN: Visibly not distended SKIN: There is no rash NEURO: No focal motor deficit. Follows command. MUSCULOSKELETAL: Left hip pain and tenderness with restricted movement EXTRIMITY: No swelling, no cyanosis or clubbing. PSYCH: Cooperative. - Constitutional Vitals: Vital Signs - 12hr 03/31/21 03/31/21 03/31/21 08:07 10:00 15:12 Temperature 98.3 F 98.9 F Pulse Rate 94 H 90 Respiratory 20 20 Rate Blood Pressure 118/76 117/76 O2 Sat by Pulse 96 99 96 Oximetry - Labs CBC & Chem 7: 03/30/21 05:12 03/31/21 09:41 Labs: Abnormal lab results 03/31/21 Range/Units 09:41 Carbon Dioxide 21 L (22-30) mmol/L BUN 50 H (9-20) mg/dL Creatinine 2.0 H (0.8-1.3) mg/dL Glucose 101 H (75-100) mg/dL HEART Score - HEART Score Troponin: Troponin T 0.054 ng/mL (0.00-0.029) H 03/28/21 21:06
[2021-03-31] MEDS: cefTRIAXone/NS 1 GM/50 ML 1 GM/50 ML BAG IV SCH (21:23)
[2021-04-01] MEDS: MORPHINE 4 MG/1 ML INJ IV PRN (05:56)
[2021-04-01 06:25] LABS: Calcium 8.9 mg/dL (8.4-10.2)
[2021-04-01] MEDS: SODIUM BICARBONATE 75 MEQ in SODIUM CHLORIDE 0.45% 1000 ML 1,000 ML IV SCH (07:29)
--- NOTE | 2021-04-01 09:40 | Progress Note ---
Subjective Date of service: 03/31/21 Principal diagnosis: paulino on ckd Interval history: Impression: * Acute kidney injury on stage III CKD (followed by Dr. Radha Szymanski) --Baseline SCr 1.9mg/dL; SCr 1.87mg/dL on Mar 01 2021 * Left femur fracture * Syncope * Hyperkalemia * Metabolic acidosis * Hypertension - now with relative hypotension * Type II DM * Anemia * Hx of C Diff colitis (hospitalization - Dec 2020 and Feb 2021) Plan: * No acute need for renal replacement therapy * Hyperkalemia improved with medical management * Continue IVF. * cr appears to be at baseline, ok for ortho surgery if needed * Dose medications for renal function * Avoid potential nephrotoxins * Strict I/O * AM labs Subjective: labs and chart reveiwed events noted General appearance: well-developed, well-nourished EENT: ATNC Respiratory: Clear to Ascultation Heart: regular, S1S2 Gastrointestinal: Present: normal. Absent: tenderness, distended Integumentary: no rash, warm and dry Neurologic: no focal deficit, alert and oriented x3 Musculoskeletal: Present: other (no edema) Psychiatric: cooperative Objective - Vital Signs Vital signs: Vital Signs - 12hr 03/31/21 03/31/21 03/31/21 22:00 22:31 23:07 Temperature 98.5 F Pulse Rate 90 93 H Respiratory 16 Rate Blood Pressure 104/67 O2 Sat by Pulse 94 94 Oximetry 04/01/21 04/01/21 04/01/21 03:50 07:38 08:00 Temperature 98.1 F 97.7 F Pulse Rate 94 H 96 H 94 H Respiratory 18 30 H Rate Blood Pressure 134/86 138/88 O2 Sat by Pulse 97 95 98 Oximetry - Lab 03/30/21 05:12 04/01/21 04:50 Most recent lab results Calcium 8.9 mg/dL (8.4-10.2) 04/01/21 04:50 Magnesium 2.30 mg/dL (1.7-2.3) 03/28/21 21:06 Medications & Allergies - Medications Allergies/Adverse Reactions: Allergies No Known Allergies Allergy (Unverified 03/28/21 17:49) Home Medications: Home Medications Medication Instructions Recorded Confirmed Last Taken Type Unobtainable 03/30/21 03/30/21 Unknown History Active Medications: Generic Name Dose Route Start Last Admin Trade Name Freq PRN Reason Stop Dose Admin Acetaminophen 650 mg 03/29/21 00:46 03/30/21 02:47 Acetaminophen 325 Mg Tab PO 650 mg Q4H PRN Administration Pain MILD(1-3)/Fever >100.5/OLIVAREZ Sodium Bicarbonate 75 meq/ 1,075 mls @ 125 mls/hr 03/30/21 04:00 04/01/21 07:29 Sodium Chloride IV 125 mls/hr DIRECT SUELLEN Administration Ceftriaxone Sodium 1 gm in 50 mls @ 100 mls/hr 03/31/21 20:00 03/31/21 21:23 Rocephin/Ns 1 Gm/50 Ml IV 100 mls/hr Q24H SUELLEN Administration Protocol Magnesium Hydroxide 30 ml 03/29/21 00:46 Magnesium Hydroxide (Mom) Oral Liqd Udc PO Q4H PRN Constipation Morphine Sulfate 4 mg 03/29/21 00:46 04/01/21 05:56 Morphine 4 Mg/1 Ml Inj IV 4 mg Q4H PRN Administration Pain , Severe (7-10) Ondansetron HCl 4 mg 03/29/21 00:46 03/29/21 08:40 Ondansetron 4 Mg/2 Ml Inj IV 4 mg Q8H PRN Administration Nausea And Vomiting Oxycodone/Acetaminophen 1 tab 03/30/21 14:16 03/31/21 20:08 Oxycodone /Acetaminophen 5-325mg Tab PO 1 tab Q6H PRN Administration Pain, Moderate (4-6) Sodium Chloride 10 ml 03/29/21 10:00 03/31/21 21:23 Sodium Chloride 0.9% 10 Ml Flush Syringe IV 10 ml BID SUELLEN Administration Sodium Chloride 10 ml 03/29/21 00:46 Sodium Chloride 0.9% 10 Ml Flush Syringe IV PRN PRN LINE FLUSH
--- NOTE | 2021-04-01 15:35 | Consultation ---
History of Present Illness - Reason for Consult Consult date: 04/01/21 HIV, COVID-19 Requesting physician: JORDAN HENDERSON - History of Present Illness The patient is a 60-year-old male with hypertension, HIV, bilateral hip replacements was admitted following syncope, fall causing left hip pain. Work- up in the emergency room revealed a periprosthetic fracture. Patient also tested positive for COVID-19. Infectious diseases was consulted for additional evaluation. He has been afebrile. Remains on room air. WBC has normalized. Labs also revealed ANGI with slight improvement in creatinine, currently at 2.0. UA showed pyuria with WBC 134. Asymptomatic from COVID-19 standpoint. No cough or shortness of breath. He is vaccinated and boosted. For HIV, he takes Triumeq, Prezista and ritonavir, follows at [facility], viral load has been undetectable, CD4 count above 400. Review of Systems: General: no fevers,chills or rigors HEENT: no new visual disturbance Respiratory: No cough, sputum, hemoptysis or shortness of breath Cardiovascular: No chest pain, syncope Gastrointestinal: No nausea, vomiting or diarrhea Genitourinary: No dysuria or hematuria Musculoskeletal: No new or worsening neck pain or back pain. Left hip pain. Neurologic: No headaches, seizures Hematologic: No easy bruising or bleeding Endocrine: No night sweats or acute weight loss Skin: negative for rash, jaundice Psychiatric: No suicidal or homicidal ideation Past History Past Medical History: diabetes, HIV/AIDS (CD4 count in the 400s-in the fall 2020), hypertension, other (stage III CKD - baseline SCr 1.9mg/dL) Past Surgical History: appendectomy, Other (Bilateral hip replacement, herniorrhaphy, appendectomy) Social history: no significant social history Family history: no significant family history Medications and Allergies Allergies Allergy/AdvReac Type Severity Reaction Status Date / Time No Known Allergies Allergy Unverified 03/28/21 17:49 Home Medications Medication Instructions Recorded Confirmed Last Taken Type Unobtainable 03/30/21 03/30/21 Unknown History Active Meds: Active Medications Acetaminophen (Acetaminophen 325 Mg Tab) 650 mg PO Q4H PRN PRN Reason: Pain MILD(1-3)/Fever >100.5/OLIVAREZ Last Admin: 03/30/21 02:47 Dose: 650 mg Sodium Bicarbonate 75 meq/ (Sodium Chloride) 1,075 mls @ 125 mls/hr IV DIRECT SUELLEN Last Admin: 04/01/21 07:29 Dose: 125 mls/hr Ceftriaxone Sodium (Rocephin/Ns 1 Gm/50 Ml) 1 gm in 50 mls @ 100 mls/hr IV Q24H SUELLEN; Protocol Last Admin: 03/31/21 21:23 Dose: 100 mls/hr Magnesium Hydroxide (Magnesium Hydroxide (Mom) Oral Liqd Udc) 30 ml PO Q4H PRN PRN Reason: Constipation Morphine Sulfate (Morphine 4 Mg/1 Ml Inj) 4 mg IV Q4H PRN PRN Reason: Pain , Severe (7-10) Last Admin: 04/01/21 05:56 Dose: 4 mg Ondansetron HCl (Ondansetron 4 Mg/2 Ml Inj) 4 mg IV Q8H PRN PRN Reason: Nausea And Vomiting Last Admin: 03/29/21 08:40 Dose: 4 mg Oxycodone/Acetaminophen (Oxycodone /Acetaminophen 5-325mg Tab) 1 tab PO Q6H PRN PRN Reason: Pain, Moderate (4-6) Last Admin: 03/31/21 20:08 Dose: 1 tab Sodium Chloride (Sodium Chloride 0.9% 10 Ml Flush Syringe) 10 ml IV BID SUELLEN Last Admin: 04/01/21 13:34 Dose: 10 ml Sodium Chloride (Sodium Chloride 0.9% 10 Ml Flush Syringe) 10 ml IV PRN PRN PRN Reason: LINE FLUSH Physical Examination - Physical Exam Narrative exam: Physical Exam: Constitutional: Alert, cooperative. No acute distress Head, Ears, Nose: Normocephalic, atraumatic. External ears, nose normal Eyes: Conjunctivae/corneas clear. No icterus. No ptosis. Neck: Supple, no meningeal signs Oral: deferred due to COVID-19 Cardiovascular: S1, S2 + Respiratory: Good air entry, clear to auscultation bilaterally GI: Soft, non-tender; bowel sounds normal. No peritoneal signs Musculoskeletal: No pedal edema, no cyanosis. Skin: No rash or abscess Hem/Lymphatic: No palpable cervical or supraclavicular nodes. No lymphangitis Psych: Mood ok. Affect normal Neurological: Awake, alert, oriented. No gross abnormality - Constitutional Vitals: Vital Signs Temp Pulse Resp BP Pulse Ox 97.7 F 94 H 30 H 138/88 98 04/01/21 07:38 04/01/21 08:00 04/01/21 07:38 04/01/21 07:38 04/01/21 08:00 Temperature -Last 24 Hours Temperature 97.7 F Temperature 98.1 F Temperature 98.5 F Temperature 99.5 F Results - Labs CBC & Chem 7: 03/30/21 05:12 04/01/21 04:50 Labs: Abnormal lab results 04/01/21 Range/Units 04:50 Carbon Dioxide 21 L (22-30) mmol/L BUN 47 H (9-20) mg/dL Creatinine 2.0 H (0.8-1.3) mg/dL Assessment and Plan Cultures: 03/30/2021 COVID-19 PCR: Positive A/P: 60-year-old male with hypertension, HIV, bilateral hip replacements was admitted following syncope, fall causing left hip pain. Work-up in the emergency room revealed a periprosthetic fracture: #COVID-19 infection: Asymptomatic, on room air. No therapeutics indicated. He is vaccinated and boosted. #HIV: For HIV, he takes Triumeq, Prezista and ritonavir, follows at [facility], viral load has been undetectable, CD4 count above 400. #Possible UTI: Patient with pyuria. No symptoms. #Periprostatic left hip fracture: Orthopedics following #HIV: he takes Triumeq, Prezista and ritonavir, follows at [facility], viral load has been undetectable, CD4 count above 400. #ANGI on CKD: Renally adjust ART. Nephrology following. Recs: f/u urine culture, complete 5 days of Ceftriaxone supportive care for COVID ordered PO Triumeq, Prezista and ritonavir Willis Gonzales MD, FACP, [facility] O: [phone] F: [phone]
[2021-04-01] MEDS ORDERED: DOLUTEGRAVIR 50 MG, ABACAVIR 600 MG, lamiVUDine 300 MG PO SCH (17:00)
[2021-04-01] MEDS: oxyCODONE /ACETAMINOPHEN 5-325MG TAB PO PRN (17:18)
--- NOTE | 2021-04-01 18:01 | Progress Note ---
Assessment and Plan Assessment and plan: 60-year-old -Greek male with known history of hypertension, HIV and history of bilateral hip replacement brought into the emergency room for evaluation of left hip pain and syncope. In the ER patient also noted to have hyperkalemia and ANGI on CKD. x-ray of the hip reveals acute fracture of the proximal femoral shaft which extends towards the base of the greater trochanter Nephrology and orthopedic consulted. Patient also mentioned that he was positive for COVID as outpatient, ordered for repeat COVID test Assessment and Plan: -- Fracture of prosthetic left hip Patient admitted and placed on analgesic medication. Orthopedic evaluated and recommended no surgical intervention necessary. -- Hyperkalemia Patient given sodium bicarbonate, albuterol neb treatment, insulin and glucose and Kayexalate. Will monitor potassium levels. Nephrology consulted, follow BMP -- Hypertension We will cont routine home medications and monitor vital signs closely. --Positive for COVID-19 Patient tested positive as outpatient, repeat test also positive Follow inflammatory markers, patient resting on room air and asymptomatic No need for dexamethasone on remdesivir --History of HIV infection Continue routine home medications. CD4 count was in the 400s in fall 2020 --ANGI on possible CKD Patient placed on IV fluid. Will monitor BUN and creatinine. Will avoid nephrotoxic agents. Consult placed to nephrology for evaluation. --DVT prophylaxis Patient placed on sequential compression device. -- Full code status Daily clinical course: 03/30: Continue to monitor potassium and creatinine level. Nephrology following. COVID-19 test is positive but patient is asymptomatic so no need for dexamethasone or remdesivir. Will consult ID for further recommendation. Ordered PT eval 03/31: Improved potassium and creatinine level. Wait for PT eval and ID recommendation. Monitor BMP. If BMP stable and clears by PT possible discharge tomorrow 04/01/2021: Patient is alert and oriented to her but not in acute distress at rest. Patient reports that he has not been able to get out of bed since admitted due to significant pain from the fracture and left femur. He had been living independently until he had a dizzy spell and fell at a store when he went there to buy medications for COVID-19 positive test. Patient reports that he is fully vaccinated and was staying at home. Per patient, routine test at PCPs office was positive for COVID-19. Currently patient has been free of respiratory symptoms like cough, dyspnea or hypoxia. Patient states that he cannot be discharged since he is bedbound from pain. I called and spoke to orthopedic who will reevaluate patient. I also discussed with the case packer for possible subacute rehab placement. Creatinine improved/stable 2.3, 2.6 and 2.0., Nephrology following. History Interval history: Patient is alert and oriented to her but not in acute distress at rest. Patient reports that he has not been able to get out of bed since admitted due to significant pain from the fracture and left femur. He had been living indep endently until he had a dizzy spell and fell at a store when he went there to buy medications for COVID-19 positive test. Patient reports that he is fully vaccinated and was staying at home. Per patient, routine test at PCPs office was positive for COVID-19. Currently patient has been free of respiratory symptoms like cough, dyspnea or hypoxia. Patient states that he cannot be discharged since he is bedbound from pain. I called and spoke to orthopedic who will reevaluate patient. I also discussed with the case packer for possible subacute rehab placement. Tolerating diet. Hospitalist Physical - Constitutional Vitals: Temp Pulse Resp BP Pulse Ox 99.1 F 105 H 20 162/102 99 04/01/21 16:30 04/01/21 16:30 04/01/21 16:30 04/01/21 16:30 04/01/21 16:30 General appearance: Present: no acute distress, well-nourished - EENT Eyes: Present: PERRL, EOM intact ENT: hearing intact - Neck Neck: Present: supple - Respiratory Respiratory effort: normal Respiratory: bilateral: CTA - Cardiovascular Rhythm: regular - Extremities Extremities: No edema Extremity abnormal: other (Tenderness to palpation over the fracture site in left femur.) - Abdominal General gastrointestinal: soft, non-tender - Integumentary Integumentary: Absent: rash - Psychiatric Psychiatric: appropriate mood/affect - Neurologic Neurologic: no other (No focal motor deficits.) HEART Score - HEART Score Troponin: Troponin T 0.054 ng/mL (0.00-0.029) H 03/28/21 21:06 Results - Labs CBC & Chem 7: 03/30/21 05:12 04/01/21 04:50 Labs: Laboratory Last Values WBC 10.4 K/mm3 (4.5-11.0) 03/30/21 05:12 RBC 2.90 M/mm3 (3.65-5.03) L 03/30/21 05:12 Hgb 9.8 gm/dl (11.8-15.2) L 03/30/21 05:12 Hct 29.2 % (35.5-45.6) L 03/30/21 05:12 MCV 101 fl (84-94) H 03/30/21 05:12 MCH 34 pg (28-32) H 03/30/21 05:12 MCHC 34 % (32-34) 03/30/21 05:12 RDW 12.3 % (13.2-15.2) L 03/30/21 05:12 Plt Count 259 K/mm3 (140-440) 03/30/21 05:12 Lymph % (Auto) 20.1 % (13.4-35.0) 03/30/21 05:12 [place] % (Auto) 8.0 % (0.0-7.3) H 03/30/21 05:12 Eos % (Auto) 1.1 % (0.0-4.3) 03/30/21 05:12 Baso % (Auto) 0.5 % (0.0-1.8) 03/30/21 05:12 Lymph # (Auto) 2.1 K/mm3 (1.2-5.4) 03/30/21 05:12 [place] # (Auto) 0.8 K/mm3 (0.0-0.8) 03/30/21 05:12 Eos # (Auto) 0.1 K/mm3 (0.0-0.4) 03/30/21 05:12 Baso # (Auto) 0.1 K/mm3 (0.0-0.1) 03/30/21 05:12 Seg Neutrophils % 70.3 % (40.0-70.0) H 03/30/21 05:12 Seg Neutrophils # 7.3 K/mm3 (1.8-7.7) 03/30/21 05:12 PT 13.6 Sec. (12.2-14.9) 03/28/21 21:06 INR 0.94 (0.87-1.13) 03/28/21 21:06 APTT 28.2 Sec. (24.2-36.6) 03/28/21 21:06 Sodium 140 mmol/L (137-145) 04/01/21 04:50 Potassium 4.5 mmol/L (3.6-5.0) 04/01/21 04:50 Chloride 106.4 mmol/L (98-107) 04/01/21 04:50 Carbon Dioxide 21 mmol/L (22-30) L 04/01/21 04:50 Anion Gap 17 mmol/L 04/01/21 04:50 BUN 47 mg/dL (9-20) H 04/01/21 04:50 Creatinine 2.0 mg/dL (0.8-1.3) H 04/01/21 04:50 Estimated GFR 42 ml/min 04/01/21 04:50 BUN/Creatinine Ratio 24 % 04/01/21 04:50 Glucose 97 mg/dL (75-100) 04/01/21 04:50 POC Glucose 91 mg/dL (70-105) 04/01/21 16:28 Calcium 8.9 mg/dL (8.4-10.2) 04/01/21 04:50 Magnesium 2.30 mg/dL (1.7-2.3) 03/28/21 21:06 Total Creatine Kinase 67 units/L (55-170) 03/28/21 21:06 CK-MB (CK-2) 4.5 ng/mL (0.0-4.0) H 03/28/21 21:06 CK-MB (CK-2) Rel Index 6.7 (0-4) H 03/28/21 21:06 Troponin T 0.054 ng/mL (0.00-0.029) H 03/28/21 21:06 Triglycerides 258 mg/dL (2-149) H 03/28/21 21:06 Cholesterol 176 mg/dL (50-199) 03/28/21 21:06 LDL Cholesterol Direct 100 mg/dL (50-130) 03/28/21 21:06 HDL Cholesterol 25 mg/dL (40-59) L 03/28/21 21:06 Cholesterol/HDL Ratio 7.04 % 03/28/21 21:06 Urine Color Yellow (Yellow) 03/30/21 01:24 Urine Turbidity Slightly-cloudy (Clear) 01/09/22 01:24 Urine pH 5.0 (5.0-7.0) 03/30/21 01:24 Ur Specific [place] 1.012 (1.003-1.030) 03/30/21 01:24 Urine Protein 100 mg/dl mg/dL (Negative) 03/30/21 01:24 Urine Glucose (UA) Neg mg/dL (Negative) 03/30/21 01:24 Urine Ketones Neg mg/dL (Negative) 03/30/21 01:24 Urine Blood Neg (Negative) 03/30/21 01:24 Urine Nitrite Neg (Negative) 03/30/21 01:24 Urine Bilirubin Neg (Negative) 03/30/21 01:24 Urine Urobilinogen < 2.0 mg/dL (<2.0) 03/30/21 01:24 Ur Leukocyte Esterase Lg (Negative) 03/30/21 01:24 Urine WBC (Auto) 134.0 /HPF (0.0-6.0) H 03/30/21 01:24 Urine RBC (Auto) 12.0 /HPF (0.0-6.0) 03/30/21 01:24 Urine Bacteria (Auto) 1+ /HPF (Negative) 03/30/21 01:24 Urine Mucus Few /HPF 03/30/21 01:24 Coronavirus (PCR) Positive (Negative) A 03/30/21 10:00 Hepatitis A IgM Ab Non-reactive (NonReactive) 03/29/21 09:59 Hep Bs Antigen Nonreactive (Negative) 03/29/21 09:59 Hep B Core IgM Ab Non-reactive (NonReactive) 03/29/21 09:59 Hepatitis C Antibody Non-reactive (NonReactive) 03/29/21 09:59 Garcia/IV: Voiding Method Condom Catheter Active Medications - Current Medications Current Medications: Generic Name Dose Route Start Last Admin Trade Name Freq PRN Reason Stop Dose Admin Abacavir Sulfate 600 mg 04/01/21 17:00 Abacavir 300 Mg Tab PO DAILY SUELLEN Acetaminophen 650 mg 03/29/21 00:46 03/30/21 02:47 Acetaminophen 325 Mg Tab PO 650 mg Q4H PRN Administration Pain MILD(1-3)/Fever >100.5/OLIVAREZ Darunavir 800 mg 04/01/21 16:30 Darunavir 800 Mg Tab PO QDAY SUELLEN Sodium Bicarbonate 75 meq/ 1,075 mls @ 125 mls/hr 03/30/21 04:00 04/01/21 07:29 Sodium Chloride IV 125 mls/hr DIRECT SUELLEN Administration Ceftriaxone Sodium 1 gm in 50 mls @ 100 mls/hr 03/31/21 20:00 03/31/21 21:23 Rocephin/Ns 1 Gm/50 Ml IV 100 mls/hr Q24H SUELLEN Administration Protocol Lamivudine 300 mg 04/01/21 17:00 Lamivudine 150 Mg Tab PO DAILY SUELLEN Magnesium Hydroxide 30 ml 03/29/21 00:46 Magnesium Hydroxide (Mom) Oral Liqd Udc PO Q4H PRN Constipation Morphine Sulfate 4 mg 03/29/21 00:46 04/01/21 05:56 Morphine 4 Mg/1 Ml Inj IV 4 mg Q4H PRN Administration Pain , Severe (7-10) Ondansetron HCl 4 mg 03/29/21 00:46 03/29/21 08:40 Ondansetron 4 Mg/2 Ml Inj IV 4 mg Q8H PRN Administration Nausea And Vomiting Oxycodone/Acetaminophen 1 tab 03/30/21 14:16 04/01/21 17:18 Oxycodone /Acetaminophen 5-325mg Tab PO 1 tab Q6H PRN Administration Pain, Moderate (4-6) Ritonavir 100 mg 04/01/21 16:30 Ritonavir 100 Mg Tab PO QDAY SUELLEN Sodium Chloride 10 ml 03/29/21 10:00 04/01/21 13:34 Sodium Chloride 0.9% 10 Ml Flush Syringe IV 10 ml BID SUELLEN Administration Sodium Chloride 10 ml 03/29/21 00:46 Sodium Chloride 0.9% 10 Ml Flush Syringe IV PRN PRN LINE FLUSH Nutrition/Malnutrition Assess - Dietary Evaluation Nutrition/Malnutrition Findings: Nutrition Notes Start: 03/29/21 09:49 Freq: Status: Active Protocol: Document 03/31/21 17:22 JOAQUINA (Rec: 03/31/21 17:37 JOAQUINA [id number]) Nutrition Notes Initial or Follow up Brief Note Current Diet Cardiac/Consistent Carbohydrates Diet (since B ). Height 6 ft 8 in Weight 93.44 kg [place] Body Weight (kg) 102.72 BMI 22.6 Weight change and time frame No body weight change reported . Weight Status Appropriate Subjective/Other Information RD consult for routine F/U on Nutrition education feasibility. Pt with HIV+ and COVID-19 pui, Pt not a candidate for nutrition education. Percent of energy/protein needs met: Prescribed Cardiac/Consistent Carbohydrates Diet provides for energy/protein needs (1, 977 Kcal/86 g) during LOS. Is patient on ventilator? No Is Patient Ambulatory and/or Out of Bed Yes REE-([place]-St. Jeor-ambulatory/OOB) [ 2488.720 NUTR.[id number]] Kcal/Kg value to use for calculation 22 Approximate Energy Requirements Using 2055 kcal/Kg Calculation Used for Recommendations Kcal/kg Additional Notes Protein: 0.8-1 g/Kg; 74-93 g/ day. Fluids: 1 ml/Kcal, or as per MD. Nutrition Intervention Change Diet Order: Continue Cardiac/Consistent Carbohydrates Diet. Revisit per MD consult or patient Sign Off request: Additional Comments Continue monitoring food tolerance, %PO intake of meals , and BM.
[2021-04-01] MEDS: RITONAVIR 100 MG TAB PO SCH (19:46)
[2021-04-01 20:22] LABS: Myeloperoxidase Antibody <1.0 AI (<1.0)
[2021-04-01] MEDS: ABACAVIR 300 MG TAB PO SCH (21:33)
[2021-04-01] MEDS: DOLUTEGRAVIR 50 MG TAB PO SCH (21:37)
[2021-04-01] MEDS: DARUNAVIR 800 MG TAB PO SCH (21:39)
[2021-04-01] MEDS: cefTRIAXone/NS 1 GM/50 ML 1 GM/50 ML BAG IV SCH (21:45)
[2021-04-02] MEDS: MORPHINE 4 MG/1 ML INJ IV PRN ×2 (00:08→22:29)
[2021-04-02] MEDS: ONDANSETRON 4 MG/2 ML INJ IV PRN ×2 (00:08→22:30)
[2021-04-02 06:27] LABS: Albumin 3.1 g/dL (3.9-5); Calcium 8.8 mg/dL (8.4-10.2)
--- NOTE | 2021-04-02 08:21 | Electrocardiograph Report ---
[facility] Test Date: 2021-03-28 Test Time: 23:07:59 Pat Name: JUANITO CHRISTOPHER Department: Room: A451 Gender: M Entry Level Software Engineer: MAYA : 1960 Requested By: RHONDA HARMAN Order Number: [id number] Reading MD: Durga Jefferson Measurements Intervals [place] Rate: 74 P: 18 CT: 180 QRS: -3 QRSD: 97 T: 53 QT: 384 QTc: 427 Interpretive Statements Sinus rhythm Normal ECG No previous ECG available for comparison Electronically Signed On 04-02-2021 8:21:08 EST by Durga Jefferson
--- NOTE | 2021-04-02 10:09 | Progress Note ---
Subjective Date of service: 04/02/21 Principal diagnosis: paulino on ckd Interval history: Impression: * Acute kidney injury on stage III CKD (followed by Dr. Radha Szymanski) --Baseline SCr 1.9mg/dL; SCr 1.87mg/dL on Mar 01 2021 * Left femur fracture * Syncope * Hyperkalemia * Metabolic acidosis * Hypertension - now with relative hypotension * Type II DM * Anemia * Hx of C Diff colitis (hospitalization - Dec 2020 and Feb 2021) Plan: * No acute need for renal replacement therapy * Hyperkalemia improved with medical management * Continue IVF. * cr appears to be at baseline, ok for ortho surgery if needed * Dose medications for renal function * Avoid potential nephrotoxins * Strict I/O * AM labs noted, will follow peripherally Subjective: labs and chart reveiwed events noted General appearance: well-developed, well-nourished EENT: ATNC Respiratory: Clear to Ascultation Heart: regular, S1S2 Gastrointestinal: Present: normal. Absent: tenderness, distended Integumentary: no rash, warm and dry Neurologic: no focal deficit, alert and oriented x3 Musculoskeletal: Present: other (no edema) Psychiatric: cooperative Objective - Vital Signs Vital signs: Vital Signs - 12hr 04/01/21 04/02/21 04/02/21 23:23 00:00 04:06 Temperature 98.9 F 97.4 F L Pulse Rate 100 H 97 H 95 H Respiratory 18 18 Rate Blood Pressure 146/93 142/94 O2 Sat by Pulse 98 96 Oximetry 04/02/21 04/02/21 07:35 07:49 Temperature 98.1 F Pulse Rate 90 95 H Respiratory 18 Rate Blood Pressure 144/91 O2 Sat by Pulse 99 100 Oximetry - Lab 03/30/21 05:12 04/02/21 05:30 Most recent lab results Calcium 8.8 mg/dL (8.4-10.2) 04/02/21 05:30 Phosphorus 3.60 mg/dL (2.5-4.5) 04/02/21 05:30 Magnesium 2.30 mg/dL (1.7-2.3) 03/28/21 21:06 Medications & Allergies - Medications Allergies/Adverse Reactions: Allergies No Known Allergies Allergy (Unverified 03/28/21 17:49) Home Medications: Home Medications Medication Instructions Recorded Confirmed Last Taken Type Unobtainable 03/30/21 03/30/21 Unknown History Active Medications: Generic Name Dose Route Start Last Admin Trade Name Freq PRN Reason Stop Dose Admin Abacavir Sulfate 600 mg 04/01/21 17:00 04/01/21 21:33 Abacavir 300 Mg Tab PO 600 mg DAILY SUELLEN Administration Acetaminophen 650 mg 03/29/21 00:46 03/30/21 02:47 Acetaminophen 325 Mg Tab PO 650 mg Q4H PRN Administration Pain MILD(1-3)/Fever >100.5/OLIVAREZ Darunavir 800 mg 04/01/21 16:30 04/01/21 21:39 Darunavir 800 Mg Tab PO 800 mg QDAY SUELLEN Administration Sodium Bicarbonate 75 meq/ 1,075 mls @ 125 mls/hr 03/30/21 04:00 04/01/21 07:29 Sodium Chloride IV 125 mls/hr DIRECT SUELLEN Administration Ceftriaxone Sodium 1 gm in 50 mls @ 100 mls/hr 03/31/21 20:00 04/01/21 21:45 Rocephin/Ns 1 Gm/50 Ml IV 100 mls/hr Q24H SUELLEN Administration Protocol Lamivudine 300 mg 04/01/21 17:00 04/01/21 21:35 Lamivudine 150 Mg Tab PO 300 mg DAILY SUELLEN Administration Magnesium Hydroxide 30 ml 03/29/21 00:46 Magnesium Hydroxide (Mom) Oral Liqd Udc PO Q4H PRN Constipation Morphine Sulfate 4 mg 03/29/21 00:46 04/02/21 00:08 Morphine 4 Mg/1 Ml Inj IV 4 mg Q4H PRN Administration Pain , Severe (7-10) Ondansetron HCl 4 mg 03/29/21 00:46 04/02/21 00:08 Ondansetron 4 Mg/2 Ml Inj IV 4 mg Q8H PRN Administration Nausea And Vomiting Oxycodone/Acetaminophen 1 tab 03/30/21 14:16 04/01/21 17:18 Oxycodone /Acetaminophen 5-325mg Tab PO 1 tab Q6H PRN Administration Pain, Moderate (4-6) Ritonavir 100 mg 04/01/21 16:30 04/01/21 19:46 Ritonavir 100 Mg Tab PO Not Given QDAY SUELLEN Sodium Chloride 10 ml 03/29/21 10:00 04/01/21 21:40 Sodium Chloride 0.9% 10 Ml Flush Syringe IV 10 ml BID SUELLEN Administration Sodium Chloride 10 ml 03/29/21 00:46 Sodium Chloride 0.9% 10 Ml Flush Syringe IV PRN PRN LINE FLUSH
[2021-04-02] MEDS: oxyCODONE /ACETAMINOPHEN 5-325MG TAB PO PRN ×2 (10:50→18:10)
[2021-04-02] MEDS: RITONAVIR 100 MG TAB PO SCH (10:50)
[2021-04-02] MEDS: DOLUTEGRAVIR 50 MG TAB PO SCH (10:51)
[2021-04-02] MEDS: DARUNAVIR 800 MG TAB PO SCH (10:51)
[2021-04-02] MEDS: ABACAVIR 300 MG TAB PO SCH (10:52)
--- NOTE | 2021-04-02 11:21 | Progress Note ---
Subjective Date of service: 04/02/21 Principal diagnosis: paulino on ckd Interval history: Progress NOTE : S : Positive significant left thigh and hip pain secondary to periprosthetic fracture left hip replacement. O: Patient is awake and alert lying in hospital bed. Leg lengths appear to be equal. He is quite sensitive over the fracture site which is the proximal one third of the femur. There is pain to palpation over the greater trochanter. No pain over the anterior hip joint. He is able to dorsiflex his left foot and plantarflex his left foot with normal sensation. Unable to do a straight leg raise. X-rays show a oblique fracture line that begins greater trochanter and continues down to the midpoint of the stem of the femoral component. There is minimal displacement and no angulation.. A: Periprosthetic fracture, proximal femur, left hip P : 1. continue physical therapy for toe-touch weightbearing on the left, practice transfers from bed to chair etc. 2. Try to make every effort to treat this conservatively; if that cannot be done the index surgeon should be the one consulted first before any surgical procedure is begun. 3. Pain management; 4. DVT prophylaxis 5. I will be glad to take over his care for the left total hip / periprosthetic fracture if all parties are in agreement. Objective Vital signs: Vital Signs - 12hr 04/01/21 04/02/21 04/02/21 23:23 00:00 04:06 Temperature 98.9 F 97.4 F L Pulse Rate 100 H 97 H 95 H Respiratory 18 18 Rate Blood Pressure 146/93 142/94 O2 Sat by Pulse 98 96 Oximetry 04/02/21 04/02/21 07:35 07:49 Temperature 98.1 F Pulse Rate 90 95 H Respiratory 18 Rate Blood Pressure 144/91 O2 Sat by Pulse 99 100 Oximetry - Labs CBC & BMP: 03/30/21 05:12 04/02/21 05:30 Labs: Abnormal lab results 04/01/21 04/02/21 Range/Units 20:33 05:30 BUN 38 H (9-20) mg/dL Creatinine 1.7 H (0.8-1.3) mg/dL Glucose 105 H (75-100) mg/dL POC Glucose 107 H (70-105) mg/dL ALT 6 L (7-56) units/L Albumin 3.1 L (3.9-5) g/dL
--- NOTE | 2021-04-02 12:22 | Progress Note ---
Assessment and Plan Cultures: 03/30/2021 COVID-19 PCR: Positive A/P: 60-year-old male with hypertension, HIV, bilateral hip replacements was admitted following syncope, fall causing left hip pain. Work-up in the emergency room revealed a periprosthetic fracture: #COVID-19 infection: Asymptomatic, on room air. No therapeutics indicated. He is vaccinated and boosted. #HIV: For HIV, he takes Triumeq, Prezista and ritonavir, follows at [facility], viral load has been undetectable, CD4 count above 400. #Possible UTI: Patient with pyuria. No symptoms. #Periprosthetic left hip fracture: Orthopedics following. #HIV: he takes Triumeq, Prezista and ritonavir, follows at [facility], viral load has been undetectable, CD4 count above 400. #ANGI on CKD: Renally adjust ART. Nephrology following. Recs: f/u urine culture, complete 5 days of Ceftriaxone supportive care for COVID continue PO Triumeq (abacavir, lamivudine, dolutegravir), Prezista and ritonavir Willis Gonzales MD, FACP, [facility] ([facility] O: [phone] F: [phone] Subjective Date of service: 04/02/21 Principal diagnosis: angi on ckd Interval history: No fever. Remains on room air. Objective - Exam Narrative Exam: Physical Exam: (deferred to minimize risk of transmission. Reviewed in the chart) - Constitutional Vitals: Vital Signs Temp Pulse Resp BP Pulse Ox 98.6 F 86 18 140/86 95 04/02/21 11:49 04/02/21 11:49 04/02/21 11:49 04/02/21 11:49 04/02/21 11:49 Temperature -Last 24 Hours Temperature 98.6 F Temperature 98.1 F Temperature 97.4 F Temperature 98.9 F Temperature 98.4 F Temperature 99.1 F - Labs CBC & Chem 7: 03/30/21 05:12 04/02/21 05:30 Labs: Abnormal lab results 04/01/21 04/02/21 Range/Units 20:33 05:30 BUN 38 H (9-20) mg/dL Creatinine 1.7 H (0.8-1.3) mg/dL Glucose 105 H (75-100) mg/dL POC Glucose 107 H (70-105) mg/dL ALT 6 L (7-56) units/L Albumin 3.1 L (3.9-5) g/dL
--- NOTE | 2021-04-02 18:07 | Progress Note ---
Assessment and Plan Assessment and plan: 60-year-old -[place] male with known history of hypertension, HIV and history of bilateral hip replacement brought into the emergency room for evaluation of left hip pain and syncope. In the ER patient also noted to have hyperkalemia and ANGI on CKD. x-ray of the hip reveals acute fracture of the proximal femoral shaft which extends towards the base of the greater trochanter Nephrology and orthopedic consulted. Patient also mentioned that he was positive for COVID as outpatient, ordered for repeat COVID test Assessment and Plan: -- Fracture of malvin-prosthetic left proximal femur Patient admitted and placed on analgesic medication. Orthopedic evaluated and initially recommended no surgical intervention However, deemed to need surgery significant pain and inability to ambulate Primary orthopedic recommended to have surgery here, scheduled for tomorrow. Pain control is adequate, remains bedbound -- Hyperkalemia Patient given sodium bicarbonate, albuterol neb treatment, insulin and glucose and Kayexalate. Will monitor potassium levels. Nephrology consulted, follow BMP -- Hypertension We will cont routine home medications and monitor vital signs closely. --Positive for COVID-19 Patient tested positive as outpatient, repeat test also positive Follow inflammatory markers, patient resting on room air and asymptomatic No need for dexamethasone on remdesivir --History of HIV infection Continue routine home medications. CD4 count was in the 400s in fall 2020 --ANGI on possible CKD Patient placed on IV fluid. Will monitor BUN and creatinine. Will avoid nephrotoxic agents. Consult placed to nephrology for evaluation. --DVT prophylaxis Patient placed on sequential compression device. -- Full code status Daily clinical course: 03/30: Continue to monitor potassium and creatinine level. Nephrology following. COVID-19 test is positive but patient is asymptomatic so no need for dexamethasone or remdesivir. Will consult ID for further recommendation. Ordered PT eval 03/31: Improved potassium and creatinine level. Wait for PT eval and ID recommendation. Monitor BMP. If BMP stable and clears by PT possible discharge tomorrow 04/01/2021: Patient is alert and oriented to her but not in acute distress at rest. Patient reports that he has not been able to get out of bed since admitted due to significant pain from the fracture and left femur. He had been living independently until he had a dizzy spell and fell at a store when he went there to buy medications for COVID-19 positive test. Patient reports that he is fully vaccinated and was staying at home. Per patient, routine test at PCPs office was positive for COVID-19. Currently patient has been free of respiratory symptoms like cough, dyspnea or hypoxia. Patient states that he cannot be discharged since he is bedbound from pain. I called and spoke to orthopedic who will reevaluate patient. I also discussed with the family independence case manager for possible subacute rehab placement. Creatinine improved/stable 2.3, 2.6 and 2.0., Nephrology following. 04/02, scheduled for orthopedic surgery tomorrow. Pain control. Remains bedbound. Stable. History Interval history: His primary orthopedic surgeon recommended surgery here and scheduled for tomorrow. Currently pain controlled. Remains in bed. No respiratory symptoms or fever. Hospitalist Physical - Constitutional Vitals: Temp Pulse Resp BP Pulse Ox 98.6 F 86 18 140/86 95 04/02/21 11:49 04/02/21 11:49 04/02/21 11:49 04/02/21 11:49 04/02/21 11:49 General appearance: Present: no acute distress, well-nourished - EENT Eyes: Present: PERRL, EOM intact ENT: hearing intact, clear oral mucosa - Neck Neck: Present: supple - Respiratory Respiratory effort: normal Respiratory: bilateral: CTA - Cardiovascular Rhythm: regular - Extremities Extremities: No edema - Abdominal General gastrointestinal: soft, non-tender - Integumentary Integumentary: Absent: rash - Psychiatric Psychiatric: appropriate mood/affect - Neurologic Neurologic: no focal deficits, other (Alert and oriented) HEART Score - HEART Score Troponin: Troponin T 0.054 ng/mL (0.00-0.029) H 03/28/21 21:06 Results - Labs CBC & Chem 7: 03/30/21 05:12 04/05/21 05:47 Labs: Laboratory Last Values WBC 10.4 K/mm3 (4.5-11.0) 03/30/21 05:12 RBC 2.90 M/mm3 (3.65-5.03) L 03/30/21 05:12 Hgb 9.8 gm/dl (11.8-15.2) L 03/30/21 05:12 Hct 29.2 % (35.5-45.6) L 03/30/21 05:12 MCV 101 fl (84-94) H 03/30/21 05:12 MCH 34 pg (28-32) H 03/30/21 05:12 MCHC 34 % (32-34) 03/30/21 05:12 RDW 12.3 % (13.2-15.2) L 03/30/21 05:12 Plt Count 259 K/mm3 (140-440) 03/30/21 05:12 Lymph % (Auto) 20.1 % (13.4-35.0) 03/30/21 05:12 Campbell % (Auto) 8.0 % (0.0-7.3) H 03/30/21 05:12 Eos % (Auto) 1.1 % (0.0-4.3) 03/30/21 05:12 Baso % (Auto) 0.5 % (0.0-1.8) 03/30/21 05:12 Lymph # (Auto) 2.1 K/mm3 (1.2-5.4) 03/30/21 05:12 Campbell # (Auto) 0.8 K/mm3 (0.0-0.8) 03/30/21 05:12 Eos # (Auto) 0.1 K/mm3 (0.0-0.4) 03/30/21 05:12 Baso # (Auto) 0.1 K/mm3 (0.0-0.1) 03/30/21 05:12 Seg Neutrophils % 70.3 % (40.0-70.0) H 03/30/21 05:12 Seg Neutrophils # 7.3 K/mm3 (1.8-7.7) 03/30/21 05:12 PT 13.6 Sec. (12.2-14.9) 03/28/21 21:06 INR 0.94 (0.87-1.13) 03/28/21 21:06 APTT 28.2 Sec. (24.2-36.6) 03/28/21 21:06 Sodium 140 mmol/L (137-145) 04/02/21 05:30 Potassium 4.3 mmol/L (3.6-5.0) 04/02/21 05:30 Chloride 105.5 mmol/L (98-107) 04/02/21 05:30 Carbon Dioxide 23 mmol/L (22-30) 04/02/21 05:30 Anion Gap 16 mmol/L 04/02/21 05:30 BUN 38 mg/dL (9-20) H 04/02/21 05:30 Creatinine 1.7 mg/dL (0.8-1.3) H 04/02/21 05:30 Estimated GFR 50 ml/min 04/02/21 05:30 BUN/Creatinine Ratio 22 % 04/02/21 05:30 Glucose 105 mg/dL (75-100) H 04/02/21 05:30 POC Glucose 126 mg/dL (70-105) H 04/02/21 15:46 Calcium 8.8 mg/dL (8.4-10.2) 04/02/21 05:30 Phosphorus 3.60 mg/dL (2.5-4.5) 04/02/21 05:30 Magnesium 2.30 mg/dL (1.7-2.3) 03/28/21 21:06 Total Bilirubin 0.30 mg/dL (0.1-1.2) 04/02/21 05:30 AST 11 units/L (5-40) 04/02/21 05:30 ALT 6 units/L (7-56) L 04/02/21 05:30 Alkaline Phosphatase 96 units/L (35-129) 04/02/21 05:30 Total Creatine Kinase 67 units/L (55-170) 03/28/21 21:06 CK-MB (CK-2) 4.5 ng/mL (0.0-4.0) H 03/28/21 21:06 CK-MB (CK-2) Rel Index 6.7 (0-4) H 03/28/21 21:06 Troponin T 0.054 ng/mL (0.00-0.029) H 03/28/21 21:06 Total Protein 6.8 g/dL (6.3-8.2) 04/02/21 05:30 Albumin 3.1 g/dL (3.9-5) L 04/02/21 05:30 Albumin/Globulin Ratio 0.8 % 04/02/21 05:30 Triglycerides 258 mg/dL (2-149) H 03/28/21 21:06 Cholesterol 176 mg/dL (50-199) 03/28/21 21:06 LDL Cholesterol Direct 100 mg/dL (50-130) 03/28/21 21:06 HDL Cholesterol 25 mg/dL (40-59) L 03/28/21 21:06 Cholesterol/HDL Ratio 7.04 % 03/28/21 21:06 Urine Color Yellow (Yellow) 03/30/21 01:24 Urine Turbidity Slightly-cloudy (Clear) 03/30/21 01:24 Urine pH 5.0 (5.0-7.0) 03/30/21 01:24 Ur Specific [place] 1.012 (1.003-1.030) 03/30/21 01:24 Urine Protein 100 mg/dl mg/dL (Negative) 03/30/21 01:24 Urine Glucose (UA) Neg mg/dL (Negative) 03/30/21 01:24 Urine Ketones Neg mg/dL (Negative) 03/30/21 01:24 Urine Blood Neg (Negative) 03/30/21 01:24 Urine Nitrite Neg (Negative) 03/30/21 01:24 Urine Bilirubin Neg (Negative) 03/30/21 01:24 Urine Urobilinogen < 2.0 mg/dL (<2.0) 03/30/21 01:24 Ur Leukocyte Esterase Lg (Negative) 03/30/21 01:24 Urine WBC (Auto) 134.0 /HPF (0.0-6.0) H 03/30/21 01:24 Urine RBC (Auto) 12.0 /HPF (0.0-6.0) 03/30/21 01:24 Urine Bacteria (Auto) 1+ /HPF (Negative) 03/30/21 01:24 Urine Mucus Few /HPF 03/30/21 01:24 Immunofix Electrophor see below 03/29/21 09:59 Proteinase 3 (PR3) Ab <1.0 AI (<1.0) 03/29/21 09:59 Myeloperoxidase Ab <1.0 AI (<1.0) 03/29/21 09:59 Coronavirus (PCR) Positive (Negative) A 03/30/21 10:00 Hepatitis A IgM Ab Non-reactive (NonReactive) 03/29/21 09:59 Hep Bs Antigen Nonreactive (Negative) 03/29/21 09:59 Hep B Core IgM Ab Non-reactive (NonReactive) 03/29/21 09:59 Hepatitis C Antibody Non-reactive (NonReactive) 03/29/21 09:59 Garcia/IV: Voiding Method Condom Catheter Active Medications - Current Medications Current Medications: Generic Name Dose Route Start Last Admin Trade Name Freq PRN Reason Stop Dose Admin Abacavir Sulfate 600 mg 04/01/21 17:00 04/02/21 10:52 Abacavir 300 Mg Tab PO 600 mg DAILY SUELLEN Administration Acetaminophen 650 mg 03/29/21 00:46 03/30/21 02:47 Acetaminophen 325 Mg Tab PO 650 mg Q4H PRN Administration Pain MILD(1-3)/Fever >100.5/OLIVAREZ Atorvastatin Calcium 80 mg 04/02/21 22:00 Atorvastatin 40 Mg Tab PO QHS [facility] Citalopram Hydrobromide 20 mg 04/02/21 16:00 Citalopram 20 Mg Tab PO DAILY [facility] Darunavir 800 mg 04/01/21 16:30 04/02/21 10:51 Darunavir 800 Mg Tab PO 800 mg QDAY SUELLEN Administration Sodium Bicarbonate 75 meq/ 1,075 mls @ 125 mls/hr 03/30/21 04:00 04/01/21 07:29 Sodium Chloride IV 125 mls/hr DIRECT SUELLEN Administration Ceftriaxone Sodium 1 gm in 50 mls @ 100 mls/hr 03/31/21 20:00 04/01/21 21:45 Rocephin/Ns 1 Gm/50 Ml IV 04/04/21 20:29 100 mls/hr Q24H SUELLEN Administration Protocol Lamivudine 300 mg 04/01/21 17:00 04/02/21 10:51 Lamivudine 150 Mg Tab PO 300 mg DAILY SUELLEN Administration Latanoprost 1 drops 04/02/21 22:00 Latanoprost 0.005% Ophth Soln 2.5 Ml OD QHS SUELLEN Magnesium Hydroxide 30 ml 03/29/21 00:46 Magnesium Hydroxide (Mom) Oral Liqd Udc PO Q4H PRN Constipation Morphine Sulfate 4 mg 03/29/21 00:46 04/02/21 00:08 Morphine 4 Mg/1 Ml Inj IV 4 mg Q4H PRN Administration Pain , Severe (7-10) Ondansetron HCl 4 mg 03/29/21 00:46 04/02/21 00:08 Ondansetron 4 Mg/2 Ml Inj IV 4 mg Q8H PRN Administration Nausea And Vomiting Oxycodone/Acetaminophen 1 tab 03/30/21 14:16 04/02/21 10:50 Oxycodone /Acetaminophen 5-325mg Tab PO 1 tab Q6H PRN Administration Pain, Moderate (4-6) Ritonavir 100 mg 04/01/21 16:30 04/02/21 10:50 Ritonavir 100 Mg Tab PO 100 mg QDAY SUELLEN Administration Sodium Chloride 10 ml 03/29/21 10:00 04/02/21 10:51 Sodium Chloride 0.9% 10 Ml Flush Syringe IV 10 ml BID SUELLEN Administration Sodium Chloride 10 ml 03/29/21 00:46 Sodium Chloride 0.9% 10 Ml Flush Syringe IV PRN PRN LINE FLUSH Timolol Maleate 1 drops 04/02/21 22:00 Timolol 0.5% Ophth Soln 5 Ml OU BID SUELLEN Nutrition/Malnutrition Assess - Dietary Evaluation Nutrition/Malnutrition Findings: Nutrition Notes Start: 03/29/21 09:49 Freq: Status: Active Protocol: Document 03/31/21 17:22 JOAQUINA (Rec: 03/31/21 17:37 JOAQUINA [id number]) Nutrition Notes Initial or Follow up Brief Note Current Diet Cardiac/Consistent Carbohydrates Diet (since B ). Height 6 ft 8 in Weight 93.44 kg [place] Body Weight (kg) 102.72 BMI 22.6 Weight change and time frame No body weight change reported . Weight Status Appropriate Subjective/Other Information RD consult for routine F/U on Nutrition education feasibility. Pt with HIV+ and COVID-19 pui, Pt not a candidate for nutrition education. Percent of energy/protein needs met: Prescribed Cardiac/Consistent Carbohydrates Diet provides for energy/protein needs (1, 977 Kcal/86 g) during LOS. Is patient on ventilator? No Is Patient Ambulatory and/or Out of Bed Yes REE-([place]-St. Jeor-ambulatory/OOB) [ 2488.720 NUTR.[id number]] Kcal/Kg value to use for calculation 22 Approximate Energy Requirements Using 2055 kcal/Kg Calculation Used for Recommendations Kcal/kg Additional Notes Protein: 0.8-1 g/Kg; 74-93 g/ day. Fluids: 1 ml/Kcal, or as per MD. Nutrition Intervention Change Diet Order: Continue Cardiac/Consistent Carbohydrates Diet. Revisit per MD consult or patient Sign Off request: Additional Comments Continue monitoring food tolerance, %PO intake of meals , and BM.
[2021-04-02] MEDS: cefTRIAXone/NS 1 GM/50 ML 1 GM/50 ML BAG IV SCH (22:35)
[2021-04-02] MEDS: CITALOPRAM 20 MG TAB PO SCH (23:17)
[2021-04-02] MEDS: LATANOPROST 0.005% OPHTH SOLN 2.5 ML OD SCH (23:17)
[2021-04-02] MEDS: TIMOLOL 0.5% OPHTH SOLN 5 ML OU SCH (23:18)
--- NOTE | 2021-04-03 09:56 | Progress Note ---
Subjective Date of service: 04/03/21 Principal diagnosis: paulino on ckd Interval history: Impression: * Acute kidney injury on stage III CKD (followed by Dr. Radha Szymanski) --Baseline SCr 1.9mg/dL; SCr 1.87mg/dL on Mar 01 2021 * Left femur fracture * Syncope * Hyperkalemia * Metabolic acidosis * Hypertension - now with relative hypotension * Type II DM * UTI * Anemia * Hx of C Diff colitis (hospitalization - Dec 2020 and Feb 2021) Plan: * No acute need for renal replacement therapy * continue abx for uti * Hyperkalemia improved with medical management * Continue IVF. * cr appears to be at baseline at last check, ok for ortho surgery if needed * Dose medications for renal function * Avoid potential nephrotoxins * Strict I/O * AM labs noted, will follow peripherally Subjective: labs and chart reveiwed events noted General appearance: well-developed, well-nourished EENT: ATNC Respiratory: Clear to Ascultation Heart: regular, S1S2 Gastrointestinal: Present: normal. Absent: tenderness, distended Integumentary: no rash, warm and dry Neurologic: no focal deficit, alert and oriented x3 Musculoskeletal: Present: other (no edema) Psychiatric: cooperative Objective - Vital Signs Vital signs: Vital Signs - 12hr 04/02/21 04/02/21 04/03/21 22:00 23:24 02:00 Temperature 97.7 F Pulse Rate 94 H 84 Respiratory 16 Rate Blood Pressure 138/91 O2 Sat by Pulse 96 96 Oximetry 04/03/21 04/03/21 04/03/21 03:29 07:39 08:37 Temperature 98.8 F 98.5 F Pulse Rate 93 H 88 84 Respiratory 19 18 Rate Blood Pressure 146/88 133/92 O2 Sat by Pulse 99 97 96 Oximetry 04/03/21 08:39 Temperature Pulse Rate 84 Respiratory Rate Blood Pressure O2 Sat by Pulse Oximetry - Lab 03/30/21 05:12 04/02/21 05:30 Most recent lab results Calcium 8.8 mg/dL (8.4-10.2) 04/02/21 05:30 Phosphorus 3.60 mg/dL (2.5-4.5) 04/02/21 05:30 Magnesium 2.30 mg/dL (1.7-2.3) 03/28/21 21:06 Medications & Allergies - Medications Allergies/Adverse Reactions: Allergies No Known Allergies Allergy (Verified 04/02/21 13:31) Home Medications: Home Medications Medication Instructions Recorded Confirmed Last Taken Type Abacavir/Dolutegravir/Lamivudi 1 each PO QDAY 04/02/21 04/02/21 03/28/21 History [Triumeq (Nf)] Atorvastatin Calcium [Lipitor] 80 mg PO QHS 04/02/21 04/02/21 03/28/21 History Citalopram [celeXA] 20 mg PO QDAY 04/02/21 04/02/21 03/28/21 History Darunavir [Prezista] 800 mg PO QDAY 04/02/21 04/02/21 03/28/21 History Dulaglutide [Trulicity] 1.5 mg SQ QWEEK 04/02/21 04/02/21 03/28/21 History Latanoprost 0.005% [Xalatan 0.005%] 1 drop OD QHS 04/02/21 04/02/21 03/28/21 History Ritonavir [Norvir] 100 mg PO QDAY 04/02/21 04/02/21 03/28/21 History Testosterone Cypionate 100 mg IM Q2W 04/02/21 04/02/21 03/28/21 History Timolol 0.5% [Timoptic] 1 drop OU BID 04/02/21 04/02/21 03/28/21 History amLODIPine [Norvasc] 5 mg PO DAILY 04/02/21 04/02/21 03/28/21 History hydroCHLOROthiazide [HCTZ] 25 mg PO QDAY 04/02/21 04/02/21 03/28/21 History lisinopriL [Zestril TAB] 40 mg PO QDAY 04/02/21 04/02/21 03/28/21 History valACYclovir [Valtrex] 500 mg PO BID PRN 04/02/21 04/02/21 03/28/21 History Active Medications: Generic Name Dose Route Start Last Admin Trade Name Freq PRN Reason Stop Dose Admin Abacavir Sulfate 600 mg 04/01/21 17:00 04/02/21 10:52 Abacavir 300 Mg Tab PO 600 mg DAILY SUELLEN Administration Acetaminophen 650 mg 03/29/21 00:46 03/30/21 02:47 Acetaminophen 325 Mg Tab PO 650 mg Q4H PRN Administration Pain MILD(1-3)/Fever >100.5/OLIVAREZ Atorvastatin Calcium 80 mg 04/02/21 22:00 04/02/21 22:29 Atorvastatin 40 Mg Tab PO 80 mg QHS SUELLEN Administration Citalopram Hydrobromide 20 mg 04/02/21 16:00 04/02/21 23:17 Citalopram 20 Mg Tab PO Not Given DAILY SUELLEN Darunavir 800 mg 04/01/21 16:30 04/02/21 10:51 Darunavir 800 Mg Tab PO 800 mg QDAY SUELLEN Administration Sodium Bicarbonate 75 meq/ 1,075 mls @ 125 mls/hr 03/30/21 04:00 04/01/21 07:29 Sodium Chloride IV 125 mls/hr DIRECT SUELLEN Administration Ceftriaxone Sodium 1 gm in 50 mls @ 100 mls/hr 03/31/21 20:00 04/02/21 22:35 Rocephin/Ns 1 Gm/50 Ml IV 04/04/21 20:29 100 mls/hr Q24H SUELLEN Administration Protocol Lamivudine 300 mg 04/01/21 17:00 04/02/21 10:51 Lamivudine 150 Mg Tab PO 300 mg DAILY SUELLEN Administration Latanoprost 1 drops 04/02/21 22:00 04/02/21 23:17 Latanoprost 0.005% Ophth Soln 2.5 Ml OD 1 drops QHS SUELLEN Administration Magnesium Hydroxide 30 ml 03/29/21 00:46 Magnesium Hydroxide (Mom) Oral Liqd Udc PO Q4H PRN Constipation Morphine Sulfate 4 mg 03/29/21 00:46 04/02/21 22:29 Morphine 4 Mg/1 Ml Inj IV 4 mg Q4H PRN Administration Pain , Severe (7-10) Ondansetron HCl 4 mg 03/29/21 00:46 04/02/21 22:30 Ondansetron 4 Mg/2 Ml Inj IV 4 mg Q8H PRN Administration Nausea And Vomiting Oxycodone/Acetaminophen 1 tab 03/30/21 14:16 04/02/21 18:10 Oxycodone /Acetaminophen 5-325mg Tab PO 1 tab Q6H PRN Administration Pain, Moderate (4-6) Ritonavir 100 mg 04/01/21 16:30 04/02/21 10:50 Ritonavir 100 Mg Tab PO 100 mg QDAY SUELLEN Administration Sodium Chloride 10 ml 03/29/21 10:00 04/02/21 23:05 Sodium Chloride 0.9% 10 Ml Flush Syringe IV 10 ml BID SUELLEN Administration Sodium Chloride 10 ml 03/29/21 00:46 Sodium Chloride 0.9% 10 Ml Flush Syringe IV PRN PRN LINE FLUSH Timolol Maleate 1 drops 04/02/21 22:00 04/02/21 23:18 Timolol 0.5% Ophth Soln 5 Ml OU 1 drops BID SUELLEN Administration
[2021-04-03] MEDS: CITALOPRAM 20 MG TAB PO SCH (10:33)
[2021-04-03] MEDS: TIMOLOL 0.5% OPHTH SOLN 5 ML OU SCH ×2 (10:33→22:18)
[2021-04-03] MEDS: oxyCODONE /ACETAMINOPHEN 5-325MG TAB PO PRN ×2 (10:34→22:33)
[2021-04-03] MEDS: DARUNAVIR 800 MG TAB PO SCH (11:44)
[2021-04-03] MEDS: DOLUTEGRAVIR 50 MG TAB PO SCH (11:44)
[2021-04-03] MEDS: RITONAVIR 100 MG TAB PO SCH (11:44)
[2021-04-03] MEDS: ABACAVIR 300 MG TAB PO SCH (11:44)
[2021-04-03] MEDS: MORPHINE 4 MG/1 ML INJ IV PRN ×2 (11:45→15:00)
--- NOTE | 2021-04-03 13:50 | Progress Note ---
Subjective Principal diagnosis: paulino on ckd Interval history: Assessment : Prosthetic fracture left total hip, femoral component only Recommendation: Plan now is to proceed with surgical stabilization for the fracture so that his rehab can continue. We will plan for cerclage cabling of the proximal femoral diaphysis fracture at the midpoint for the femoral stem. Surgery will be planned for 04/04/2021 . Continue with: 1. PT modalities and gait training with partial weightbearing, LEFT hip 2. DVT prophylaxis; 3. Pain management; 4. Discharge planning/consider SNF placement for adequate rehab Objective Vital signs: Vital Signs - 12hr 04/03/21 04/03/21 04/03/21 02:00 03:29 07:39 Temperature 98.8 F 98.5 F Pulse Rate 84 93 H 88 Respiratory 19 18 Rate Blood Pressure 146/88 133/92 O2 Sat by Pulse 99 97 Oximetry 04/03/21 04/03/21 04/03/21 08:37 08:39 11:24 Temperature 99.0 F Pulse Rate 84 84 88 Respiratory 18 Rate Blood Pressure 124/80 O2 Sat by Pulse 96 97 Oximetry - Labs CBC & BMP: 03/30/21 05:12 04/02/21 05:30 Labs: Abnormal lab results 04/02/21 04/02/21 Range/Units 15:46 20:17 POC Glucose 126 H 127 H (70-105) mg/dL
--- NOTE | 2021-04-03 14:29 | Progress Note ---
Assessment and Plan Cultures: 03/30/2021 COVID-19 PCR: Positive A/P: 60-year-old male with hypertension, HIV, bilateral hip replacements was admitted following syncope, fall causing left hip pain. Work-up in the emergency room revealed a periprosthetic fracture: #COVID-19 infection: Asymptomatic, on room air. No therapeutics indicated. He is vaccinated and boosted. #HIV: For HIV, he takes Triumeq, Prezista and ritonavir, follows at [facility], viral load has been undetectable, CD4 count above 400. #Possible UTI: Patient with pyuria. No symptoms. #Periprosthetic left hip fracture: Orthopedics following, awaiting surgery. #HIV: he takes Triumeq, Prezista and ritonavir, follows at [facility], viral load has been undetectable, CD4 count above 400. #ANGI on CKD: improved. Nephrology following. Recs: f/u urine culture, complete 5 days of Ceftriaxone supportive care for COVID continue PO Triumeq (abacavir, lamivudine, dolutegravir), Prezista and ritonavir Willis Gonzales MD, FACP, [facility] ([facility] O: [phone] F: [phone] Subjective Date of service: 04/03/21 Principal diagnosis: angi on ckd Interval history: No fever. Remains on room air. Objective - Exam Narrative Exam: Physical Exam: (deferred to minimize risk of transmission. Reviewed in the chart) - Constitutional Vitals: Vital Signs Temp Pulse Resp BP Pulse Ox 99.0 F 88 18 124/80 97 04/03/21 11:24 04/03/21 11:24 04/03/21 11:24 04/03/21 11:24 04/03/21 11:24 Temperature -Last 24 Hours Temperature 99.0 F Temperature 98.5 F Temperature 98.8 F Temperature 97.7 F Temperature 99.3 F Temperature 98.4 F - Labs CBC & Chem 7: 03/30/21 05:12 04/02/21 05:30 Labs: Abnormal lab results 04/02/21 04/02/21 Range/Units 15:46 20:17 POC Glucose 126 H 127 H (70-105) mg/dL
[2021-04-03] MEDS: cefTRIAXone/NS 1 GM/50 ML 1 GM/50 ML BAG IV SCH (20:50)
--- NOTE | 2021-04-03 21:12 | Progress Note ---
Assessment and Plan Assessment and plan: 60-year-old -[place] male with known history of hypertension, HIV and history of bilateral hip replacement brought into the emergency room for evaluation of left hip pain and syncope. In the ER patient also noted to have hyperkalemia and ANGI on CKD. x-ray of the hip reveals acute fracture of the proximal femoral shaft which extends towards the base of the greater trochanter Nephrology and orthopedic consulted. Patient also mentioned that he was positive for COVID as outpatient, ordered for repeat COVID test Assessment and Plan: -- Fracture of malvin-prosthetic left proximal femur Patient admitted and placed on analgesic medication. Orthopedic evaluated and initially recommended no surgical intervention However, deemed to need surgery significant pain and inability to ambulate Primary orthopedic recommended to have surgery here, rescheduled for tomorrow. Pain control is adequate, remains bedbound -- Hyperkalemia Patient given sodium bicarbonate, albuterol neb treatment, insulin and glucose and Kayexalate. Will monitor potassium levels. Nephrology consulted, follow BMP -- Hypertension We will cont routine home medications and monitor vital signs closely. --Positive for COVID-19 Patient tested positive as outpatient, repeat test also positive Follow inflammatory markers, patient resting on room air and asymptomatic No need for dexamethasone on remdesivir --History of HIV infection Continue routine home medications. CD4 count was in the 400s in fall 2020 --ANGI on possible CKD Patient placed on IV fluid. BUN and creatinie improving Will avoid nephrotoxic agents. Consult placed to nephrology for evaluation. --DVT prophylaxis Patient placed on sequential compression device. -- Full code status Daily clinical course: 03/30: Continue to monitor potassium and creatinine level. Nephrology following. COVID-19 test is positive but patient is asymptomatic so no need for dexamethasone or remdesivir. Will consult ID for further recommendation. Ordered PT eval 03/31: Improved potassium and creatinine level. Wait for PT eval and ID recommendation. Monitor BMP. If BMP stable and clears by PT possible discharge tomorrow 04/01/2021: Patient is alert and oriented to her but not in acute distress at rest. Patient reports that he has not been able to get out of bed since admitted due to significant pain from the fracture and left femur. He had been living independently until he had a dizzy spell and fell at a store when he went there to buy medications for COVID-19 positive test. Patient reports that he is fully vaccinated and was staying at home. Per patient, routine test at PCPs office was positive for COVID-19. Currently patient has been free of respiratory symptoms like cough, dyspnea or hypoxia. Patient states that he cannot be discharged since he is bedbound from pain. I called and spoke to orthopedic who will reevaluate patient. I also discussed with the case operator for possible subacute rehab placement. Creatinine improved/stable 2.3, 2.6 and 2.0., Nephrology following. 04/02, scheduled for orthopedic surgery tomorrow. Pain control. Remains bedbound. Stable. 04/03: Surgery rescheduled for tomorrow. Pain controlled adequately. No acute respiratory symptoms. ANGI improving. History Interval history: His primary orthopedic surgeon recommended surgery here and was scheduled for today but changed to tomorrow. Currently pain controlled. Remains in bed. No respiratory symptoms or fever. Hospitalist Physical - Constitutional Vitals: Temp Pulse Resp BP Pulse Ox 97.7 F 80 18 137/87 97 04/03/21 16:29 04/03/21 16:29 04/03/21 16:29 04/03/21 16:29 04/03/21 16:29 General appearance: Present: no acute distress, well-nourished - EENT Eyes: Present: EOM intact ENT: hearing intact, clear oral mucosa - Neck Neck: Present: supple - Respiratory Respiratory effort: normal Respiratory: bilateral: CTA - Cardiovascular Rhythm: regular - Extremities Extremities: No edema - Abdominal General gastrointestinal: soft, non-tender - Psychiatric Psychiatric: appropriate mood/affect - Neurologic Neurologic: no focal deficits HEART Score - HEART Score Troponin: Troponin T 0.054 ng/mL (0.00-0.029) H 03/28/21 21:06 Results - Labs CBC & Chem 7: 03/30/21 05:12 04/05/21 05:47 Labs: Laboratory Last Values WBC 10.4 K/mm3 (4.5-11.0) 03/30/21 05:12 RBC 2.90 M/mm3 (3.65-5.03) L 03/30/21 05:12 Hgb 9.8 gm/dl (11.8-15.2) L 03/30/21 05:12 Hct 29.2 % (35.5-45.6) L 03/30/21 05:12 MCV 101 fl (84-94) H 03/30/21 05:12 MCH 34 pg (28-32) H 03/30/21 05:12 MCHC 34 % (32-34) 03/30/21 05:12 RDW 12.3 % (13.2-15.2) L 03/30/21 05:12 Plt Count 259 K/mm3 (140-440) 03/30/21 05:12 Lymph % (Auto) 20.1 % (13.4-35.0) 03/30/21 05:12 [place] % (Auto) 8.0 % (0.0-7.3) H 03/30/21 05:12 Eos % (Auto) 1.1 % (0.0-4.3) 03/30/21 05:12 Baso % (Auto) 0.5 % (0.0-1.8) 03/30/21 05:12 Lymph # (Auto) 2.1 K/mm3 (1.2-5.4) 03/30/21 05:12 [place] # (Auto) 0.8 K/mm3 (0.0-0.8) 03/30/21 05:12 Eos # (Auto) 0.1 K/mm3 (0.0-0.4) 03/30/21 05:12 Baso # (Auto) 0.1 K/mm3 (0.0-0.1) 03/30/21 05:12 Seg Neutrophils % 70.3 % (40.0-70.0) H 03/30/21 05:12 Seg Neutrophils # 7.3 K/mm3 (1.8-7.7) 03/30/21 05:12 PT 13.6 Sec. (12.2-14.9) 03/28/21 21:06 INR 0.94 (0.87-1.13) 03/28/21 21:06 APTT 28.2 Sec. (24.2-36.6) 03/28/21 21:06 Sodium 140 mmol/L (137-145) 04/02/21 05:30 Potassium 4.3 mmol/L (3.6-5.0) 04/02/21 05:30 Chloride 105.5 mmol/L (98-107) 04/02/21 05:30 Carbon Dioxide 23 mmol/L (22-30) 04/02/21 05:30 Anion Gap 16 mmol/L 04/02/21 05:30 BUN 38 mg/dL (9-20) H 04/02/21 05:30 Creatinine 1.7 mg/dL (0.8-1.3) H 04/02/21 05:30 Estimated GFR 50 ml/min 04/02/21 05:30 BUN/Creatinine Ratio 22 % 04/02/21 05:30 Glucose 105 mg/dL (75-100) H 04/02/21 05:30 POC Glucose 127 mg/dL (70-105) H 04/02/21 20:17 Calcium 8.8 mg/dL (8.4-10.2) 04/02/21 05:30 Phosphorus 3.60 mg/dL (2.5-4.5) 04/02/21 05:30 Magnesium 2.30 mg/dL (1.7-2.3) 03/28/21 21:06 Total Bilirubin 0.30 mg/dL (0.1-1.2) 04/02/21 05:30 AST 11 units/L (5-40) 04/02/21 05:30 ALT 6 units/L (7-56) L 04/02/21 05:30 Alkaline Phosphatase 96 units/L (35-129) 04/02/21 05:30 Total Creatine Kinase 67 units/L (55-170) 03/28/21 21:06 CK-MB (CK-2) 4.5 ng/mL (0.0-4.0) H 03/28/21 21:06 CK-MB (CK-2) Rel Index 6.7 (0-4) H 03/28/21 21:06 Troponin T 0.054 ng/mL (0.00-0.029) H 03/28/21 21:06 Total Protein 6.8 g/dL (6.3-8.2) 04/02/21 05:30 Albumin 3.1 g/dL (3.9-5) L 04/02/21 05:30 Albumin/Globulin Ratio 0.8 % 04/02/21 05:30 Triglycerides 258 mg/dL (2-149) H 03/28/21 21:06 Cholesterol 176 mg/dL (50-199) 03/28/21 21:06 LDL Cholesterol Direct 100 mg/dL (50-130) 03/28/21 21:06 HDL Cholesterol 25 mg/dL (40-59) L 03/28/21 21:06 Cholesterol/HDL Ratio 7.04 % 03/28/21 21:06 Urine Color Yellow (Yellow) 03/30/21 01:24 Urine Turbidity Slightly-cloudy (Clear) 03/30/21 01:24 Urine pH 5.0 (5.0-7.0) 03/30/21 01:24 Ur Specific [place] 1.012 (1.003-1.030) 03/30/21 01:24 Urine Protein 100 mg/dl mg/dL (Negative) 03/30/21 01:24 Urine Glucose (UA) Neg mg/dL (Negative) 03/30/21 01:24 Urine Ketones Neg mg/dL (Negative) 03/30/21 01:24 Urine Blood Neg (Negative) 03/30/21 01:24 Urine Nitrite Neg (Negative) 03/30/21 01:24 Urine Bilirubin Neg (Negative) 03/30/21 01:24 Urine Urobilinogen < 2.0 mg/dL (<2.0) 03/30/21 01:24 Ur Leukocyte Esterase Lg (Negative) 03/30/21 01:24 Urine WBC (Auto) 134.0 /HPF (0.0-6.0) H 03/30/21 01:24 Urine RBC (Auto) 12.0 /HPF (0.0-6.0) 03/30/21 01:24 Urine Bacteria (Auto) 1+ /HPF (Negative) 03/30/21 01:24 Urine Mucus Few /HPF 03/30/21 01:24 Immunofix Electrophor see below 03/29/21 09:59 Proteinase 3 (PR3) Ab <1.0 AI (<1.0) 03/29/21 09:59 Myeloperoxidase Ab <1.0 AI (<1.0) 03/29/21 09:59 Complement C3 157 mg/dL (82-185) 03/29/21 09:59 Complement C4 54 mg/dL (15-53) H 03/29/21 09:59 Coronavirus (PCR) Positive (Negative) A 03/30/21 10:00 Hepatitis A IgM Ab Non-reactive (NonReactive) 03/29/21 09:59 Hep Bs Antigen Nonreactive (Negative) 03/29/21 09:59 Hep B Core IgM Ab Non-reactive (NonReactive) 03/29/21 09:59 Hepatitis C Antibody Non-reactive (NonReactive) 03/29/21 09:59 Microbiology: Microbiology 03/31/21 Unknown Urine,Clean Catch Urine Culture - Preliminary Gram Negative Jh Garcia/IV: Voiding Method Condom Catheter Active Medications - Current Medications Current Medications: Generic Name Dose Route Start Last Admin Trade Name Freq PRN Reason Stop Dose Admin Abacavir Sulfate 600 mg 04/01/21 17:00 04/03/21 11:44 Abacavir 300 Mg Tab PO Not Given DAILY SUELLEN Acetaminophen 650 mg 03/29/21 00:46 03/30/21 02:47 Acetaminophen 325 Mg Tab PO 650 mg Q4H PRN Administration Pain MILD(1-3)/Fever >100.5/OLIVAREZ Atorvastatin Calcium 80 mg 04/02/21 22:00 04/02/21 22:29 Atorvastatin 40 Mg Tab PO 80 mg QHS SUELLEN Administration Citalopram Hydrobromide 20 mg 04/02/21 16:00 04/03/21 10:33 Citalopram 20 Mg Tab PO 20 mg DAILY SUELLEN Administration Darunavir 800 mg 04/01/21 16:30 04/03/21 11:44 Darunavir 800 Mg Tab PO Not Given QDAY SUELLEN Sodium Bicarbonate 75 meq/ 1,075 mls @ 125 mls/hr 03/30/21 04:00 04/01/21 07:29 Sodium Chloride IV 125 mls/hr DIRECT SUELLEN Administration Ceftriaxone Sodium 1 gm in 50 mls @ 100 mls/hr 03/31/21 20:00 04/02/21 22:35 Rocephin/Ns 1 Gm/50 Ml IV 04/04/21 20:29 100 mls/hr Q24H SUELLEN Administration Protocol Lamivudine 300 mg 04/01/21 17:00 04/03/21 11:44 Lamivudine 150 Mg Tab PO Not Given DAILY SUELLEN Latanoprost 1 drops 04/02/21 22:00 04/02/21 23:17 Latanoprost 0.005% Ophth Soln 2.5 Ml OD 1 drops QHS SUELLEN Administration Magnesium Hydroxide 30 ml 03/29/21 00:46 Magnesium Hydroxide (Mom) Oral Liqd Udc PO Q4H PRN Constipation Morphine Sulfate 4 mg 01/08/22 00:46 04/03/21 15:00 Morphine 4 Mg/1 Ml Inj IV 4 mg Q4H PRN Administration Pain , Severe (7-10) Ondansetron HCl 4 mg 03/29/21 00:46 04/02/21 22:30 Ondansetron 4 Mg/2 Ml Inj IV 4 mg Q8H PRN Administration Nausea And Vomiting Oxycodone/Acetaminophen 1 tab 03/30/21 14:16 04/03/21 10:34 Oxycodone /Acetaminophen 5-325mg Tab PO 1 tab Q6H PRN Administration Pain, Moderate (4-6) Ritonavir 100 mg 04/01/21 16:30 04/03/21 11:44 Ritonavir 100 Mg Tab PO Not Given QDAY SUELLEN Sodium Chloride 10 ml 03/29/21 10:00 04/03/21 10:33 Sodium Chloride 0.9% 10 Ml Flush Syringe IV 10 ml BID SUELLEN Administration Sodium Chloride 10 ml 03/29/21 00:46 Sodium Chloride 0.9% 10 Ml Flush Syringe IV PRN PRN LINE FLUSH Timolol Maleate 1 drops 04/02/21 22:00 04/03/21 10:33 Timolol 0.5% Ophth Soln 5 Ml OU 1 drops BID SUELLEN Administration Nutrition/Malnutrition Assess - Dietary Evaluation Nutrition/Malnutrition Findings: Nutrition Notes Start: 03/29/21 09:49 Freq: Status: Active Protocol: Document 03/31/21 17:22 JOAQUINA (Rec: 03/31/21 17:37 JOAQUINA [id number]) Nutrition Notes Initial or Follow up Brief Note Current Diet Cardiac/Consistent Carbohydrates Diet (since B ). Height 6 ft 8 in Weight 93.44 kg [place] Body Weight (kg) 102.72 BMI 22.6 Weight change and time frame No body weight change reported . Weight Status Appropriate Subjective/Other Information RD consult for routine F/U on Nutrition education feasibility. Pt with HIV+ and COVID-19 pui, Pt not a candidate for nutrition education. Percent of energy/protein needs met: Prescribed Cardiac/Consistent Carbohydrates Diet provides for energy/protein needs (1, 977 Kcal/86 g) during LOS. Is patient on ventilator? No Is Patient Ambulatory and/or Out of Bed Yes REE-([place]-ambulatory/OOB) [ 2488.720 NUTR.[id number]] Kcal/Kg value to use for calculation 22 Approximate Energy Requirements Using 2055 kcal/Kg Calculation Used for Recommendations Kcal/kg Additional Notes Protein: 0.8-1 g/Kg; 74-93 g/ day. Fluids: 1 ml/Kcal, or as per MD. Nutrition Intervention Change Diet Order: Continue Cardiac/Consistent Carbohydrates Diet. Revisit per MD consult or patient Sign Off request: Additional Comments Continue monitoring food tolerance, %PO intake of meals , and BM.
[2021-04-03] MEDS: LATANOPROST 0.005% OPHTH SOLN 2.5 ML OD SCH (22:16)
[2021-04-04 05:21] LABS: ANA Screen, IFA Negative (Negative)
[2021-04-04 06:24] LABS: Calcium 9.2 mg/dL (8.4-10.2)
--- NOTE | 2021-04-04 09:23 | Anesthesia Day of Surgery ---
Anesthesia Day of Surgery - Day of Surgery Patient Examined: Yes Patient H&P Reviewed: Yes Patient is NPO: Yes
--- NOTE | 2021-04-04 09:23 | Anesthesia Consultation ---
Anesthesia Consult and Med Hx Date of service: 04/04/21 - Airway Anesthetic Teeth Evaluation: Poor (multiple chipped teeth) ROM Head & Neck: Adequate Mental/Hyoid Distance: Adequate Mallampati Class: Class II Intubation Access Assessment: Probably Good - Pre-Operative Health Status ASA Pre-Surgery Classification: ASA3 Proposed Anesthetic Plan: General - Pulmonary Hx Respiratory Symptoms: No (COVID 19 (+)) - Cardiovascular System Hx Hypertension: Yes - Central Nervous System Hx Back Pain: Yes (bilateral prosthetic hips) - Endocrine Hx Non-Insulin Dependent Diabetes: Yes - Additional Comments Anesthesia Medical History Comments: HIV, treated. CD4 level in 400s (fall 2020)
[2021-04-04] MEDS: DARUNAVIR 800 MG TAB PO SCH (09:42)
[2021-04-04] MEDS: CITALOPRAM 20 MG TAB PO SCH (09:42)
[2021-04-04] MEDS: RITONAVIR 100 MG TAB PO SCH (09:43)
[2021-04-04] MEDS: DOLUTEGRAVIR 50 MG TAB PO SCH (09:43)
[2021-04-04] MEDS: ABACAVIR 300 MG TAB PO SCH (09:43)
[2021-04-04] MEDS: TIMOLOL 0.5% OPHTH SOLN 5 ML OU SCH ×2 (10:47→22:08)
--- NOTE | 2021-04-04 12:33 | Progress Note ---
Assessment and Plan Cultures: 03/30/2021 COVID-19 PCR: Positive 03/31/2021 urine culture: GNR A/P: 60-year-old male with hypertension, HIV, bilateral hip replacements was admitted following syncope, fall causing left hip pain. Work-up in the emergency room revealed a periprosthetic fracture: #COVID-19 infection: Asymptomatic, on room air. No therapeutics indicated. He is vaccinated and boosted. #HIV: For HIV, he takes Triumeq, Prezista and ritonavir, follows at [facility], viral load has been undetectable, CD4 count above 400. #Possible UTI: Patient with pyuria. No symptoms. #Periprosthetic left hip fracture: Orthopedics following, awaiting surgery. #HIV: he takes Triumeq, Prezista and ritonavir, follows at [facility], viral load has been undetectable, CD4 count above 400. #ANGI on CKD: improved. Nephrology following. Recs: f/u urine culture, complete 5 days of Ceftriaxone supportive care for COVID continue PO Triumeq (abacavir, lamivudine, dolutegravir), Prezista and ritonavir Upon discharge, will f/u with his own HIV provider at [facility] Willis Gonzales MD, [facility] O: [phone] F: [phone] Subjective Date of service: 04/04/21 Principal diagnosis: angi on ckd Interval history: No fever. Remains on room air. Objective - Exam Narrative Exam: Physical Exam: (deferred to minimize risk of transmission. Reviewed in the chart) - Constitutional Vitals: Vital Signs Temp Pulse Resp BP Pulse Ox 98.7 F 80 18 139/86 98 04/04/21 08:50 04/04/21 08:50 04/04/21 08:50 04/04/21 08:50 04/04/21 08:50 Temperature -Last 24 Hours Temperature 98.7 F Temperature 97.7 F Temperature 98.7 F Temperature 97.2 F Temperature 97.7 F - Labs CBC & Chem 7: 03/30/21 05:12 04/04/21 05:17 Labs: Abnormal lab results 03/29/21 04/04/21 Range/Units 09:59 05:17 BUN 35 H (9-20) mg/dL Creatinine 1.9 H (0.8-1.3) mg/dL Glucose 107 H (75-100) mg/dL Complement C4 54 H (15-53) mg/dL
[2021-04-04] MEDS ORDERED: LIDOCAINE MPF (2%) 20 MG/1 ML VIAL 5 ML ONE (12:57)
[2021-04-04] MEDS ORDERED: propofoL 200 MG/20 ML VIAL IV ONE (12:58)
[2021-04-04] MEDS ORDERED: fentaNYL 100 MCG/2 ML INJ ONE (12:59)
[2021-04-04] MEDS ORDERED: MIDAZOLAM 2 MG/2 ML INJ ONE (12:59)
[2021-04-04] MEDS ORDERED: ONDANSETRON 4 MG/2 ML INJ ONE (13:05)
[2021-04-04] MEDS ORDERED: HYDROmorphone 1 MG/1 ML INJ ONE ×2 (14:17→16:24)
[2021-04-04] MEDS ORDERED: ePHEDrine SULFATE 50 MG/1 ML INJ ONE (14:29)
[2021-04-04] MEDS ORDERED: SODIUM CHLORIDE 0.9% IRR 1,500 ML BOTTLE IR ONE ×2 (14:30)
[2021-04-04] MEDS ORDERED: dexAMETHasone 20 MG/5 ML VIAL ONE (14:40)
[2021-04-04] MEDS ORDERED: SODIUM CHLORIDE 0.9% 1000 ML 2,000 ML ONE (15:26)
--- NOTE | 2021-04-04 16:22 | Post Anesthesia Evaluation ---
- Post Anesthesia Evaluation Patient Participated: Yes Airway Patent: Yes Stable Respiratory Function: Yes Nausea/Vomiting: No Temp > 96.8F: Yes Pain Manageable: Yes Adequeate Hydration: Yes Anesthesia Complications: No Block Receding Appropriately: Not Applicable Patient on Ventilator: No
[2021-04-04] MEDS: HYDROmorphone 1 MG/1 ML INJ IV PRN ×2 (16:28→16:49)
--- NOTE | 2021-04-04 16:40 | Operative Report ---
Operative Report Operative Report: OP REPORT : Preop diagnosis : 1) Periprosthetic fracture left proximal femur 2) S/P LEFT THR (remote past) Postop diagnosis: 1) prosthetic fracture with minimal displacement left proximal femur 2) S/P LEFT THR Procedure: Cerclage wire fixation utilizing Dahl-Miles cable system ,LEFT femur Surgeon: Barber Hinojosa MD diploma dental assistant: none Anesthesia: General with endotracheal tube Details of operative technique : Patient was brought from the floor to the holding area where he was prepared for surgery. He was then taken to the operating room where he underwent general anesthesia utilizing an endotracheal tube. He was placed in the decubitus position with the left hip up. All pressure points were well-padded. The left hip was then prepped and draped in usual sterile fashion as per total hip protocol with ChloraPrep solution. A timeout was then called by the circulating nurse and once again the correct site was identified. Utilizing a small anterolateral incision in line with the previous incision using only the distal 2 cm of the pre-existing incision, the hip was opened. Dissection was carried down through the fibrofatty layer. Bleeders were clamped and cauterized with the Bovie. The tensor fascia was then split the length of the incision and a small periosteal elevator was utilized to expose the proximal femur at the level of the lesser trochanter. C arm images were utilized throughout the case and the single oblique fracture line was identified and was reduced by simply applying longitudinal traction. Utilizing the Dahl-Miles cable system, 2 separate cables (2mm) were placed circumferentially around the pro ximal fragment just below the lesser trochanter which reduced the fracture to an anatomic position. Once completed C arm images were taken to confirm excellent anatomic alignment. The wound was then irrigated thoroughly with normal saline and the tensor fascia was closed with 0 Vicryl suture. The subcu layer was closed with 0 Vicryl and 2- 0 Vicryl. Skin was reapproximated with a Zipline closure system. A sterile compressive /occlusive dressing was then applied. The patient was then awaken and rolled over to the supine position transferred to a rclearwater and taken to the recovery room in excellent condition. Estimated blood loss: 250 cc Drains: None Complications: None
--- NOTE | 2021-04-04 16:54 | XRay Report ---
Left hip 3 fluoroscopic images INDICATION: Pain FINDINGS: Total fluoroscopy time 20 seconds. Surgical drain overlying the left greater trochanter Signer Name: Avery Gurrola MD Signed: 04/04/2021 4:49 PM Workstation Name: [id number]
[2021-04-04] MEDS ORDERED: cefTRIAXone/NS 1 GM/50 ML 1 GM/50 ML BAG IV ONE (18:00)
--- NOTE | 2021-04-04 18:22 | Progress Note ---
Subjective Date of service: 04/04/21 Principal diagnosis: paulino on ckd Interval history: Impression: * Acute kidney injury on stage III CKD (followed by Dr. Radha Szymanski) --Baseline SCr 1.9mg/dL; SCr 1.87mg/dL on Mar 01 2021 * Left femur fracture * Syncope * Hyperkalemia * Metabolic acidosis * Hypertension - now with relative hypotension * Type II DM * UTI * Anemia * Hx of C Diff colitis (hospitalization - Dec 2020 and Feb 2021) Plan: * No acute need for renal replacement therapy * continue abx for uti * Hyperkalemia improved with medical management * Continue IVF. * cr appears to be at baseline at last check, ok for ortho surgery if needed * Dose medications for renal function * Avoid potential nephrotoxins * Strict I/O * AM labs noted, will follow peripherally Subjective: labs and chart reveiwed events noted General appearance: well-developed, well-nourished EENT: ATNC Respiratory: Clear to Ascultation Heart: regular, S1S2 Gastrointestinal: Present: normal. Absent: tenderness, distended Integumentary: no rash, warm and dry Neurologic: no focal deficit, alert and oriented x3 Musculoskeletal: Present: other (no edema) Psychiatric: cooperative Objective - Vital Signs Vital signs: Vital Signs - 12hr 04/04/21 04/04/21 04/04/21 08:50 16:00 16:28 Temperature 98.7 F 97.1 F L Pulse Rate 80 80 Respiratory 18 12 12 Rate Blood Pressure 139/86 164/98 O2 Sat by Pulse 98 100 Oximetry 04/04/21 16:49 Temperature Pulse Rate Respiratory 12 Rate Blood Pressure O2 Sat by Pulse Oximetry - Lab 03/30/21 05:12 04/04/21 05:17 Most recent lab results Calcium 9.2 mg/dL (8.4-10.2) 04/04/21 05:17 Phosphorus 3.60 mg/dL (2.5-4.5) 04/02/21 05:30 Magnesium 2.30 mg/dL (1.7-2.3) 03/28/21 21:06 Medications & Allergies - Medications Allergies/Adverse Reactions: Allergies No Known Allergies Allergy (Verified 04/02/21 13:31) Home Medications: Home Medications Medication Instructions Recorded Confirmed Last Taken Type Abacavir/Dolutegravir/Lamivudi 1 each PO QDAY 04/02/21 04/02/21 03/28/21 History [Triumeq (Nf)] Atorvastatin Calcium [Lipitor] 80 mg PO QHS 04/02/21 04/02/21 03/28/21 History Citalopram [celeXA] 20 mg PO QDAY 04/02/21 04/02/21 03/28/21 History Darunavir [Prezista] 800 mg PO QDAY 04/02/21 04/02/21 03/28/21 History Dulaglutide [Trulicity] 1.5 mg SQ QWEEK 04/02/21 04/02/21 03/28/21 History Latanoprost 0.005% [Xalatan 0.005%] 1 drop OD QHS 04/02/21 04/02/21 03/28/21 History Ritonavir [Norvir] 100 mg PO QDAY 04/02/21 04/02/21 03/28/21 History Testosterone Cypionate 100 mg IM Q2W 04/02/21 04/02/21 03/28/21 History Timolol 0.5% [Timoptic] 1 drop OU BID 04/02/21 04/02/21 03/28/21 History amLODIPine [Norvasc] 5 mg PO DAILY 04/02/21 04/02/21 03/28/21 History hydroCHLOROthiazide [HCTZ] 25 mg PO QDAY 04/02/21 04/02/21 03/28/21 History lisinopriL [Zestril TAB] 40 mg PO QDAY 04/02/21 04/02/21 03/28/21 History valACYclovir [Valtrex] 500 mg PO BID PRN 04/02/21 04/02/21 03/28/21 History Active Medications: Generic Name Dose Route Start Last Admin Trade Name Freq PRN Reason Stop Dose Admin Abacavir Sulfate 600 mg 04/01/21 17:00 04/04/21 09:43 Abacavir 300 Mg Tab PO Not Given DAILY SUELLEN Acetaminophen 650 mg 03/29/21 00:46 03/30/21 02:47 Acetaminophen 325 Mg Tab PO 650 mg Q4H PRN Administration Pain MILD(1-3)/Fever >100.5/OLIVAREZ Atorvastatin Calcium 80 mg 04/02/21 22:00 04/03/21 22:16 Atorvastatin 40 Mg Tab PO 80 mg QHS SUELLEN Administration Citalopram Hydrobromide 20 mg 04/02/21 16:00 04/04/21 09:42 Citalopram 20 Mg Tab PO Not Given DAILY SUELLEN Darunavir 800 mg 04/01/21 16:30 04/04/21 09:42 Darunavir 800 Mg Tab PO Not Given QDAY [facility] Hydromorphone HCl 0.5 mg 04/04/21 16:26 04/04/21 16:49 Hydromorphone 1 Mg/1 Ml Inj IV 04/05/21 16:25 0.5 mg Q10MIN PRN Administration Pain , Severe (7-10) Sodium Bicarbonate 75 meq/ 1,075 mls @ 125 mls/hr 03/30/21 04:00 04/01/21 07:29 Sodium Chloride IV 125 mls/hr DIRECT SUELLEN Administration Cefazolin Sodium 1 gm in 50 mls @ 100 mls/hr 04/04/21 22:30 Ancef/Ns 1 Gm/50 Ml IV 04/05/21 14:59 Q8H [facility] Protocol Ceftriaxone Sodium 1 gm in 50 mls @ 100 mls/hr 04/04/21 18:00 Rocephin/Ns 1 Gm/50 Ml IV 04/04/21 18:29 ONCE ONE Protocol Lamivudine 300 mg 04/01/21 17:00 04/04/21 09:42 Lamivudine 150 Mg Tab PO Not Given DAILY [facility] Latanoprost 1 drops 04/02/21 22:00 04/03/21 22:16 Latanoprost 0.005% Ophth Soln 2.5 Ml OD 1 drops QHS [facility] Administration Magnesium Hydroxide 30 ml 03/29/21 00:46 Magnesium Hydroxide (Mom) Oral Liqd Udc PO Q4H PRN Constipation Morphine Sulfate 4 mg 03/29/21 00:46 04/03/21 15:00 Morphine 4 Mg/1 Ml Inj IV 4 mg Q4H PRN Administration Pain , Severe (7-10) Ondansetron HCl 4 mg 03/29/21 00:46 04/02/21 22:30 Ondansetron 4 Mg/2 Ml Inj IV 4 mg Q8H PRN Administration Nausea And Vomiting Oxycodone/Acetaminophen 1 tab 03/30/21 14:16 04/03/21 22:33 Oxycodone /Acetaminophen 5-325mg Tab PO 1 tab Q6H PRN Administration Pain, Moderate (4-6) Ritonavir 100 mg 04/01/21 16:30 04/04/21 09:43 Ritonavir 100 Mg Tab PO Not Given QDAY SUELLEN Sodium Chloride 10 ml 03/29/21 10:00 04/03/21 22:17 Sodium Chloride 0.9% 10 Ml Flush Syringe IV 10 ml BID SUELLEN Administration Sodium Chloride 10 ml 03/29/21 00:46 Sodium Chloride 0.9% 10 Ml Flush Syringe IV PRN PRN LINE FLUSH Timolol Maleate 1 drops 04/02/21 22:00 04/04/21 10:47 Timolol 0.5% Ophth Soln 5 Ml OU 1 drops BID SUELLEN Administration
--- NOTE | 2021-04-04 19:29 | Progress Note ---
Assessment and Plan Assessment and plan: 60-year-old -Nepalese male with known history of hypertension, HIV and history of bilateral hip replacement brought into the emergency room for evaluation of left hip pain and syncope. In the ER patient also noted to have hyperkalemia and ANGI on CKD. x-ray of the hip reveals acute fracture of the proximal femoral shaft which extends towards the base of the greater trochanter Nephrology and orthopedic consulted. Patient also mentioned that he was positive for COVID as outpatient, ordered for repeat COVID test Assessment and Plan: -- Fracture of malvin-prosthetic left proximal femur Patient admitted and placed on analgesic medication. Orthopedic evaluated and initially recommended no surgical intervention However, deemed to need surgery significant pain and inability to ambulate Primary orthopedic recommended to have surgery here s/p ORIF, fracture stabilized with wearing 04/04 Postoperatively stable -- Hyperkalemia Patient given sodium bicarbonate, albuterol neb treatment, insulin and glucose and Kayexalate. Will monitor potassium levels. Nephrology consulted, follow BMP -- Hypertension We will cont routine home medications and monitor vital signs closely. --Positive for COVID-19 Patient tested positive as outpatient, repeat test also positive Follow inflammatory markers, patient resting on room air and asymptomatic No need for dexamethasone on remdesivir --History of HIV infection Continue routine home medications. CD4 count was in the 400s in fall 2020 --ANGI on possible CKD Patient placed on IV fluid. BUN and creatinie improving Will avoid nephrotoxic agents. Consult placed to nephrology for evaluation. --DVT prophylaxis Patient placed on sequential compression device. -- Full code status Daily clinical course: 03/30: Continue to monitor potassium and creatinine level. Nephrology following. COVID-19 test is positive but patient is asymptomatic so no need for dexamethasone or remdesivir. Will consult ID for further recommendation. Ordered PT eval 03/31: Improved potassium and creatinine level. Wait for PT eval and ID recommendation. Monitor BMP. If BMP stable and clears by PT possible discharge tomorrow 04/01/2021: Patient is alert and oriented to her but not in acute distress at rest. Patient reports that he has not been able to get out of bed since admitted due to significant pain from the fracture and left femur. He had been living independently until he had a dizzy spell and fell at a store when he went there to buy medications for COVID-19 positive test. Patient reports that he is fully vaccinated and was staying at home. Per patient, routine test at PCPs office was positive for COVID-19. Currently patient has been free of respiratory symptoms like cough, dyspnea or hypoxia. Patient states that he cannot be discharged since he is bedbound from pain. I called and spoke to orthopedic who will reevaluate patient. I also discussed with the case management social worker for possible subacute rehab placement. Creatinine improved/stable 2.3, 2.6 and 2.0., Nephrology following. 04/02, scheduled for orthopedic surgery tomorrow. Pain control. Remains bedbound. Stable. 04/03: Surgery rescheduled for tomorrow. Pain controlled adequately. No acute respiratory symptoms. ANGI improving. 04/04: Postoperative stable. ANGI improving. Home PT versus rehab placement. He lives alone. History Interval history: Patient underwent orthopedic surgery todayfracture site good stabilized with wiring. Postoperative stable but asking her pain medication. Vitals are stable. Hospitalist Physical - Constitutional Vitals: Temp Pulse Resp BP Pulse Ox 97.1 F L 87 20 159/96 99 04/04/21 16:00 04/04/21 17:15 04/04/21 17:15 04/04/21 17:15 04/04/21 17:15 General appearance: Present: no acute distress, well-nourished - EENT Eyes: Present: PERRL, EOM intact ENT: hearing intact, clear oral mucosa - Neck Neck: Present: supple - Respiratory Respiratory effort: normal Respiratory: bilateral: CTA - Cardiovascular Rhythm: regular - Extremities Extremities: No edema - Abdominal General gastrointestinal: soft, non-tender - Integumentary Integumentary: Absent: rash - Psychiatric Psychiatric: appropriate mood/affect - Neurologic Neurologic: no focal deficits HEART Score - HEART Score Troponin: Troponin T 0.054 ng/mL (0.00-0.029) H 03/28/21 21:06 Results - Labs CBC & Chem 7: 03/30/21 05:12 04/05/21 05:47 Labs: Laboratory Last Values WBC 10.4 K/mm3 (4.5-11.0) 03/30/21 05:12 RBC 2.90 M/mm3 (3.65-5.03) L 03/30/21 05:12 Hgb 9.8 gm/dl (11.8-15.2) L 03/30/21 05:12 Hct 29.2 % (35.5-45.6) L 03/30/21 05:12 MCV 101 fl (84-94) H 03/30/21 05:12 MCH 34 pg (28-32) H 03/30/21 05:12 MCHC 34 % (32-34) 03/30/21 05:12 RDW 12.3 % (13.2-15.2) L 03/30/21 05:12 Plt Count 259 K/mm3 (140-440) 03/30/21 05:12 Lymph % (Auto) 20.1 % (13.4-35.0) 03/30/21 05:12 [place] % (Auto) 8.0 % (0.0-7.3) H 03/30/21 05:12 Eos % (Auto) 1.1 % (0.0-4.3) 03/30/21 05:12 Baso % (Auto) 0.5 % (0.0-1.8) 03/30/21 05:12 Lymph # (Auto) 2.1 K/mm3 (1.2-5.4) 03/30/21 05:12 [place] # (Auto) 0.8 K/mm3 (0.0-0.8) 03/30/21 05:12 Eos # (Auto) 0.1 K/mm3 (0.0-0.4) 03/30/21 05:12 Baso # (Auto) 0.1 K/mm3 (0.0-0.1) 03/30/21 05:12 Seg Neutrophils % 70.3 % (40.0-70.0) H 03/30/21 05:12 Seg Neutrophils # 7.3 K/mm3 (1.8-7.7) 03/30/21 05:12 PT 13.6 Sec. (12.2-14.9) 03/28/21 21:06 INR 0.94 (0.87-1.13) 03/28/21 21:06 APTT 28.2 Sec. (24.2-36.6) 03/28/21 21:06 Sodium 140 mmol/L (137-145) 04/04/21 05:17 Potassium 4.6 mmol/L (3.6-5.0) 04/04/21 05:17 Chloride 104.5 mmol/L (98-107) 04/04/21 05:17 Carbon Dioxide 24 mmol/L (22-30) 04/04/21 05:17 Anion Gap 16 mmol/L 04/04/21 05:17 BUN 35 mg/dL (9-20) H 04/04/21 05:17 Creatinine 1.9 mg/dL (0.8-1.3) H 04/04/21 05:17 Estimated GFR 44 ml/min 04/04/21 05:17 BUN/Creatinine Ratio 18 % 04/04/21 05:17 Glucose 107 mg/dL (75-100) H 04/04/21 05:17 POC Glucose 103 mg/dL (70-105) 04/04/21 16:15 Calcium 9.2 mg/dL (8.4-10.2) 04/04/21 05:17 Phosphorus 3.60 mg/dL (2.5-4.5) 04/02/21 05:30 Magnesium 2.30 mg/dL (1.7-2.3) 03/28/21 21:06 Total Bilirubin 0.30 mg/dL (0.1-1.2) 04/02/21 05:30 AST 11 units/L (5-40) 04/02/21 05:30 ALT 6 units/L (7-56) L 04/02/21 05:30 Alkaline Phosphatase 96 units/L (35-129) 04/02/21 05:30 Total Creatine Kinase 67 units/L (55-170) 03/28/21 21:06 CK-MB (CK-2) 4.5 ng/mL (0.0-4.0) H 03/28/21 21:06 CK-MB (CK-2) Rel Index 6.7 (0-4) H 03/28/21 21:06 Troponin T 0.054 ng/mL (0.00-0.029) H 03/28/21 21:06 Total Protein 6.8 g/dL (6.3-8.2) 04/02/21 05:30 Albumin 3.1 g/dL (3.9-5) L 04/02/21 05:30 Albumin/Globulin Ratio 0.8 % 04/02/21 05:30 Triglycerides 258 mg/dL (2-149) H 03/28/21 21:06 Cholesterol 176 mg/dL (50-199) 03/28/21 21:06 LDL Cholesterol Direct 100 mg/dL (50-130) 03/28/21 21:06 HDL Cholesterol 25 mg/dL (40-59) L 03/28/21 21:06 Cholesterol/HDL Ratio 7.04 % 03/28/21 21:06 Urine Color Yellow (Yellow) 03/30/21 01:24 Urine Turbidity Slightly-cloudy (Clear) 03/30/21 01:24 Urine pH 5.0 (5.0-7.0) 03/30/21 01:24 Ur Specific [place] 1.012 (1.003-1.030) 03/30/21 01:24 Urine Protein 100 mg/dl mg/dL (Negative) 03/30/21 01:24 Urine Glucose (UA) Neg mg/dL (Negative) 03/30/21 01:24 Urine Ketones Neg mg/dL (Negative) 03/30/21 01:24 Urine Blood Neg (Negative) 03/30/21 01:24 Urine Nitrite Neg (Negative) 03/30/21 01:24 Urine Bilirubin Neg (Negative) 03/30/21 01:24 Urine Urobilinogen < 2.0 mg/dL (<2.0) 03/30/21 01:24 Ur Leukocyte Esterase Lg (Negative) 03/30/21 01:24 Urine WBC (Auto) 134.0 /HPF (0.0-6.0) H 03/30/21 01:24 Urine RBC (Auto) 12.0 /HPF (0.0-6.0) 03/30/21 01:24 Urine Bacteria (Auto) 1+ /HPF (Negative) 03/30/21 01:24 Urine Mucus Few /HPF 03/30/21 01:24 Immunofix Electrophor see below 03/29/21 09:59 AKASH Screen Negative (Negative) 03/29/21 09:59 Proteinase 3 (PR3) Ab <1.0 AI (<1.0) 03/29/21 09:59 Myeloperoxidase Ab <1.0 AI (<1.0) 03/29/21 09:59 Complement C3 157 mg/dL (82-185) 03/29/21 09:59 Complement C4 54 mg/dL (15-53) H 03/29/21 09:59 Coronavirus (PCR) Positive (Negative) A 03/30/21 10:00 Hepatitis A IgM Ab Non-reactive (NonReactive) 03/29/21 09:59 Hep Bs Antigen Nonreactive (Negative) 03/29/21 09:59 Hep B Core IgM Ab Non-reactive (NonReactive) 03/29/21 09:59 Hepatitis C Antibody Non-reactive (NonReactive) 03/29/21 09:59 Microbiology: Microbiology 03/31/21 Unknown Urine,Clean Catch Urine Culture - Final Klebsiella Pneumoniae Garcia/IV: Voiding Method Condom Catheter Active Medications - Current Medications Current Medications: Generic Name Dose Route Start Last Admin Trade Name Freq PRN Reason Stop Dose Admin Abacavir Sulfate 600 mg 04/01/21 17:00 04/04/21 09:43 Abacavir 300 Mg Tab PO Not Given DAILY [facility] Acetaminophen 650 mg 03/29/21 00:46 03/30/21 02:47 Acetaminophen 325 Mg Tab PO 650 mg Q4H PRN Administration Pain MILD(1-3)/Fever >100.5/OLIVAREZ Atorvastatin Calcium 80 mg 04/02/21 22:00 04/03/21 22:16 Atorvastatin 40 Mg Tab PO 80 mg QHS SUELLEN Administration Citalopram Hydrobromide 20 mg 04/02/21 16:00 04/04/21 09:42 Citalopram 20 Mg Tab PO Not Given DAILY [facility] Darunavir 800 mg 04/01/21 16:30 04/04/21 09:42 Darunavir 800 Mg Tab PO Not Given QDAY SUELLEN Hydromorphone HCl 0.5 mg 04/04/21 16:26 04/04/21 16:49 Hydromorphone 1 Mg/1 Ml Inj IV 04/05/21 16:25 0.5 mg Q10MIN PRN Administration Pain , Severe (7-10) Sodium Bicarbonate 75 meq/ 1,075 mls @ 125 mls/hr 03/30/21 04:00 04/01/21 07:29 Sodium Chloride IV 125 mls/hr DIRECT SUELLEN Administration Cefazolin Sodium 1 gm in 50 mls @ 100 mls/hr 04/04/21 22:30 Ancef/Ns 1 Gm/50 Ml IV 04/05/21 14:59 Q8H [facility] Protocol Lamivudine 300 mg 04/01/21 17:00 04/04/21 09:42 Lamivudine 150 Mg Tab PO Not Given DAILY SUELLEN Latanoprost 1 drops 04/02/21 22:00 04/03/21 22:16 Latanoprost 0.005% Ophth Soln 2.5 Ml OD 1 drops QHS SUELLEN Administration Magnesium Hydroxide 30 ml 03/29/21 00:46 Magnesium Hydroxide (Mom) Oral Liqd Udc PO Q4H PRN Constipation Morphine Sulfate 4 mg 03/29/21 00:46 04/03/21 15:00 Morphine 4 Mg/1 Ml Inj IV 4 mg Q4H PRN Administration Pain , Severe (7-10) Ondansetron HCl 4 mg 03/29/21 00:46 04/02/21 22:30 Ondansetron 4 Mg/2 Ml Inj IV 4 mg Q8H PRN Administration Nausea And Vomiting Oxycodone/Acetaminophen 1 tab 03/30/21 14:16 04/03/21 22:33 Oxycodone /Acetaminophen 5-325mg Tab PO 1 tab Q6H PRN Administration Pain, Moderate (4-6) Ritonavir 100 mg 04/01/21 16:30 04/04/21 09:43 Ritonavir 100 Mg Tab PO Not Given QDAY SUELLEN Sodium Chloride 10 ml 03/29/21 10:00 04/03/21 22:17 Sodium Chloride 0.9% 10 Ml Flush Syringe IV 10 ml BID SUELLEN Administration Sodium Chloride 10 ml 03/29/21 00:46 Sodium Chloride 0.9% 10 Ml Flush Syringe IV PRN PRN LINE FLUSH Timolol Maleate 1 drops 04/02/21 22:00 04/04/21 10:47 Timolol 0.5% Ophth Soln 5 Ml OU 1 drops BID SUELLEN Administration Nutrition/Malnutrition Assess - Dietary Evaluation Nutrition/Malnutrition Findings: Nutrition Notes Start: 03/29/21 09:49 Freq: Status: Active Protocol: Document 03/31/21 17:22 JOAQUINA (Rec: 03/31/21 17:37 JOAQUINA [id number]) Nutrition Notes Initial or Follow up Brief Note Current Diet Cardiac/Consistent Carbohydrates Diet (since B ). Height 6 ft 8 in Weight 93.44 kg Ray Body Weight (kg) 102.72 BMI 22.6 Weight change and time frame No body weight change reported . Weight Status Appropriate Subjective/Other Information RD consult for routine F/U on Nutrition education feasibility. Pt with HIV+ and COVID-19 pui, Pt not a candidate for nutrition education. Percent of energy/protein needs met: Prescribed Cardiac/Consistent Carbohydrates Diet provides for energy/protein needs (1, 977 Kcal/86 g) during LOS. Is patient on ventilator? No Is Patient Ambulatory and/or Out of Bed Yes REE-(Jerauld-St. Jeor-ambulatory/OOB) [ 2488.720 NUTR.[id number]] Kcal/Kg value to use for calculation 22 Approximate Energy Requirements Using 2055 kcal/Kg Calculation Used for Recommendations Kcal/kg Additional Notes Protein: 0.8-1 g/Kg; 74-93 g/ day. Fluids: 1 ml/Kcal, or as per MD. Nutrition Intervention Change Diet Order: Continue Cardiac/Consistent Carbohydrates Diet. Revisit per MD consult or patient Sign Off request: Additional Comments Continue monitoring food tolerance, %PO intake of meals , and BM.
[2021-04-04] MEDS: MORPHINE 4 MG/1 ML INJ IV PRN ×2 (20:32→22:06)
[2021-04-04] MEDS: ceFAZolin/NS 1 GM/50 ML 1 GM/50 ML BAG IV SCH (22:04)
[2021-04-04] MEDS: SODIUM BICARBONATE 75 MEQ in SODIUM CHLORIDE 0.45% 1000 ML 1,000 ML IV SCH (22:05)
[2021-04-04] MEDS: LATANOPROST 0.005% OPHTH SOLN 2.5 ML OD SCH (22:11)
[2021-04-05] MEDS: MORPHINE 4 MG/1 ML INJ IV PRN ×5 (01:46→18:03)
[2021-04-05] MEDS: ceFAZolin/NS 1 GM/50 ML 1 GM/50 ML BAG IV SCH ×2 (06:19→14:40)
[2021-04-05 06:48] LABS: Calcium 9.1 mg/dL (8.4-10.2)
[2021-04-05] MEDS: CITALOPRAM 20 MG TAB PO SCH (09:10)
[2021-04-05] MEDS: ONDANSETRON 4 MG/2 ML INJ IV PRN (09:16)
[2021-04-05] MEDS: oxyCODONE /ACETAMINOPHEN 5-325MG TAB PO PRN ×3 (09:16→18:40)
[2021-04-05] MEDS: RITONAVIR 100 MG TAB PO SCH (09:17)
[2021-04-05] MEDS: DARUNAVIR 800 MG TAB PO SCH (09:17)
[2021-04-05] MEDS: DOLUTEGRAVIR 50 MG TAB PO SCH (09:17)
[2021-04-05] MEDS: TIMOLOL 0.5% OPHTH SOLN 5 ML OU SCH ×2 (09:17→22:47)
[2021-04-05] MEDS: ABACAVIR 300 MG TAB PO SCH (09:17)
--- NOTE | 2021-04-05 09:29 | Progress Note ---
Subjective Date of service: 04/05/21 Principal diagnosis: paulino on ckd Interval history: Impression: * Acute kidney injury on stage III CKD (followed by Dr. Radha Szymanski) --Baseline SCr 1.9mg/dL; SCr 1.87mg/dL on Mar 01 2021 * Left femur fracture * Syncope * Hyperkalemia * Metabolic acidosis * Hypertension - now with relative hypotension * Type II DM * UTI * Anemia * Hx of C Diff colitis (hospitalization - Dec 2020 and Feb 2021) Plan: * No acute need for renal replacement therapy * continue abx for uti * Hyperkalemia improved with medical management * Continue IVF. * cr appears to be at baseline at last check, ok for ortho surgery if needed * Dose medications for renal function * Avoid potential nephrotoxins * Strict I/O * AM labs noted, will follow peripherally Subjective: labs and chart reveiwed events noted General appearance: well-developed, well-nourished EENT: ATNC Respiratory: Clear to Ascultation Heart: regular, S1S2 Gastrointestinal: Present: normal. Absent: tenderness, distended Integumentary: no rash, warm and dry Neurologic: no focal deficit, alert and oriented x3 Musculoskeletal: Present: other (no edema) Psychiatric: cooperative Objective - Vital Signs Vital signs: Vital Signs - 12hr 04/04/21 04/04/21 04/05/21 22:00 23:02 03:27 Temperature 98.4 F 98.5 F Pulse Rate 97 H 98 H Respiratory 18 20 Rate Blood Pressure 155/93 139/82 O2 Sat by Pulse 98 96 98 Oximetry 04/05/21 04/05/21 04/05/21 03:34 08:09 08:11 Temperature 98.2 F Pulse Rate 117 H 87 99 H Respiratory 19 Rate Blood Pressure 110/46 O2 Sat by Pulse 85 98 Oximetry - Lab 03/30/21 05:12 04/05/21 05:47 Most recent lab results Calcium 9.1 mg/dL (8.4-10.2) 04/05/21 05:47 Phosphorus 3.60 mg/dL (2.5-4.5) 04/02/21 05:30 Magnesium 2.30 mg/dL (1.7-2.3) 03/28/21 21:06 Medications & Allergies - Medications Allergies/Adverse Reactions: Allergies No Known Allergies Allergy (Verified 04/02/21 13:31) Home Medications: Home Medications Medication Instructions Recorded Confirmed Last Taken Type Abacavir/Dolutegravir/Lamivudi 1 each PO QDAY 04/02/21 04/02/21 03/28/21 History [Triumeq (Nf)] Atorvastatin Calcium [Lipitor] 80 mg PO QHS 04/02/21 04/02/21 03/28/21 History Citalopram [celeXA] 20 mg PO QDAY 04/02/21 04/02/21 03/28/21 History Darunavir [Prezista] 800 mg PO QDAY 04/02/21 04/02/21 03/28/21 History Dulaglutide [Trulicity] 1.5 mg SQ QWEEK 04/02/21 04/02/21 03/28/21 History Latanoprost 0.005% [Xalatan 0.005%] 1 drop OD QHS 04/02/21 04/02/21 03/28/21 History Ritonavir [Norvir] 100 mg PO QDAY 04/02/21 04/02/21 03/28/21 History Testosterone Cypionate 100 mg IM Q2W 04/02/21 04/02/21 03/28/21 History Timolol 0.5% [Timoptic] 1 drop OU BID 04/02/21 04/02/21 03/28/21 History amLODIPine [Norvasc] 5 mg PO DAILY 04/02/21 04/02/21 03/28/21 History hydroCHLOROthiazide [HCTZ] 25 mg PO QDAY 04/02/21 04/02/21 03/28/21 History lisinopriL [Zestril TAB] 40 mg PO QDAY 04/02/21 04/02/21 03/28/21 History valACYclovir [Valtrex] 500 mg PO BID PRN 04/02/21 04/02/21 03/28/21 History Active Medications: Generic Name Dose Route Start Last Admin Trade Name Freq PRN Reason Stop Dose Admin Abacavir Sulfate 600 mg 04/01/21 17:00 04/05/21 09:17 Abacavir 300 Mg Tab PO 600 mg DAILY SUELLEN Administration Acetaminophen 650 mg 03/29/21 00:46 03/30/21 02:47 Acetaminophen 325 Mg Tab PO 650 mg Q4H PRN Administration Pain MILD(1-3)/Fever >100.5/OLIVAREZ Atorvastatin Calcium 80 mg 04/02/21 22:00 04/04/21 22:06 Atorvastatin 40 Mg Tab PO 80 mg QHS SUELLEN Administration Citalopram Hydrobromide 20 mg 04/02/21 16:00 04/05/21 09:10 Citalopram 20 Mg Tab PO 20 mg DAILY SUELLEN Administration Darunavir 800 mg 04/01/21 16:30 04/05/21 09:17 Darunavir 800 Mg Tab PO 800 mg QDAY SUELLEN Administration Hydromorphone HCl 0.5 mg 04/04/21 16:26 04/04/21 16:49 Hydromorphone 1 Mg/1 Ml Inj IV 04/05/21 16:25 0.5 mg Q10MIN PRN Administration Pain , Severe (7-10) Sodium Bicarbonate 75 meq/ 1,075 mls @ 125 mls/hr 03/30/21 04:00 04/04/21 22:05 Sodium Chloride IV 125 mls/hr DIRECT SUELLEN Administration Cefazolin Sodium 1 gm in 50 mls @ 100 mls/hr 04/04/21 22:30 04/05/21 06:59 Ancef/Ns 1 Gm/50 Ml IV 04/05/21 14:59 Infused Q8H SUELLEN Infusion Protocol Lamivudine 300 mg 04/01/21 17:00 04/05/21 09:17 Lamivudine 150 Mg Tab PO 300 mg DAILY SUELLEN Administration Latanoprost 1 drops 04/02/21 22:00 04/04/21 22:11 Latanoprost 0.005% Ophth Soln 2.5 Ml OD 1 drops QHS SUELLEN Administration Magnesium Hydroxide 30 ml 03/29/21 00:46 Magnesium Hydroxide (Mom) Oral Liqd Udc PO Q4H PRN Constipation Morphine Sulfate 4 mg 03/29/21 00:46 04/05/21 06:19 Morphine 4 Mg/1 Ml Inj IV 4 mg Q4H PRN Administration Pain , Severe (7-10) Ondansetron HCl 4 mg 03/29/21 00:46 04/05/21 09:16 Ondansetron 4 Mg/2 Ml Inj IV 4 mg Q8H PRN Administration Nausea And Vomiting Oxycodone/Acetaminophen 1 tab 03/30/21 14:16 04/05/21 09:16 Oxycodone /Acetaminophen 5-325mg Tab PO 1 tab Q6H PRN Administration Pain, Moderate (4-6) Ritonavir 100 mg 04/01/21 16:30 04/05/21 09:17 Ritonavir 100 Mg Tab PO 100 mg QDAY SUELLEN Administration Sodium Chloride 10 ml 03/29/21 10:00 04/05/21 09:17 Sodium Chloride 0.9% 10 Ml Flush Syringe IV 10 ml BID SUELLEN Administration Sodium Chloride 10 ml 03/29/21 00:46 Sodium Chloride 0.9% 10 Ml Flush Syringe IV PRN PRN LINE FLUSH Timolol Maleate 1 drops 04/02/21 22:00 04/05/21 09:17 Timolol 0.5% Ophth Soln 5 Ml OU 1 drops BID SUELLEN Administration
[2021-04-05 10:39] LABS: Basophils % (Auto) 0.1 % (0.0-1.8); Hematocrit 22.5 % (35.5-45.6); Hemoglobin 7.7 gm/dl (11.8-15.2); Lymphocytes # (Auto) 1.2 K/mm3 (1.2-5.4); Lymphocytes % (Auto) 8.4 % (13.4-35.0); Mean Corpuscular HGB Conc 34 % (32-34); Mean Corpuscular Volume 98 fl (84-94); Monocytes # (Auto) 1.3 K/mm3 (0.0-0.8); Monocytes % (Auto) 8.8 % (0.0-7.3); Platelet Count 251 K/mm3 (140-440); Red Cell Distribution Width 12.1 % (13.2-15.2)
--- NOTE | 2021-04-05 12:10 | Progress Note ---
Assessment and Plan Cultures: 03/30/2021 COVID-19 PCR: Positive 03/31/2021 urine culture: Klebsiella A/P: 60-year-old male with hypertension, HIV, bilateral hip replacements was admitted following syncope, fall causing left hip pain. Work-up in the emergency room revealed a periprosthetic fracture: #COVID-19 infection: Asymptomatic, on room air. No therapeutics indicated. He is vaccinated and boosted. #HIV: For HIV, he takes Triumeq, Prezista and ritonavir, follows at [facility], viral load has been undetectable, CD4 count above 400. #Possible UTI: Patient with pyuria. No symptoms. #Periprosthetic left hip fracture: Orthopedics following, underwent surgery - Cerclage wire fixation utilizing Shoutly cable system #HIV: he takes Triumeq, Prezista and ritonavir, follows at [facility], viral load has been undetectable, CD4 count above 400. #ANGI on CKD: improved. Nephrology following. Recs: complete total 5 days of Ceftriaxone supportive care for COVID continue PO Triumeq (abacavir, lamivudine, dolutegravir), Prezista and ritonavir Upon discharge, will f/u with his own HIV provider at [facility] Will sign off. Please call with questions. Willis Gonzales MD, FACPSUS[facility] O: [phone] F: [phone] Subjective Date of service: 04/05/21 Principal diagnosis: angi on ckd Interval history: No fever. Remains on room air. Underwent surgery. Objective - Exam Narrative Exam: Physical Exam: (deferred to minimize risk of transmission. Reviewed in the chart) - Constitutional Vitals: Vital Signs Temp Pulse Resp BP Pulse Ox 98.2 F 92 H 18 159/94 99 04/05/21 08:22 04/05/21 08:22 04/05/21 08:22 04/05/21 08:22 04/05/21 08:22 Temperature -Last 24 Hours Temperature 98.2 F Temperature 98.2 F Temperature 98.5 F Temperature 98.4 F Temperature 98.9 F Temperature 97.1 F - Labs CBC & Chem 7: 04/05/21 10:11 01/15/22 05:47 Labs: Abnormal lab results 04/05/21 04/05/21 Range/Units 05:47 10:11 WBC 14.2 H (4.5-11.0) K/mm3 RBC 2.30 L (3.65-5.03) M/mm3 Hgb 7.7 L (11.8-15.2) gm/dl Hct 22.5 L (35.5-45.6) % MCV 98 H (84-94) fl MCH 33 H (28-32) pg RDW 12.1 L (13.2-15.2) % Lymph % (Auto) 8.4 L (13.4-35.0) % [place] % (Auto) 8.8 H (0.0-7.3) % [place] # (Auto) 1.3 H (0.0-0.8) K/mm3 Seg Neutrophils % 82.7 H (40.0-70.0) % Seg Neutrophils # 11.8 H (1.8-7.7) K/mm3 BUN 32 H (9-20) mg/dL Creatinine 1.5 H (0.8-1.3) mg/dL Glucose 229 H (75-100) mg/dL
--- NOTE | 2021-04-05 15:44 | Progress Note ---
Subjective Date of service: 04/05/21 Principal diagnosis: paulino on ckd Interval history: PROGRESS NOTE : S: Day #1 postop , S/P cerclage cable application /stabilization LEFT proximal femur for periprosthrtic fracture, left total hip; he is awake and alert and feeling well with expected soreness in the proximal left thigh. No other complaints O: Middle-aged male tall frame lying in bed awake alert in no acute distress. Lateral wound shows typical swelling with no significant drainage and intact occlusive dressing. He is able to do a straight leg raise with assistance with mild to moderate pain. Neuro- vascular examination is normal. A: Satisfactory postop course cerclage cabling left proximal femur fracture, periprosthetic fracture femoral component left total hip. P: 1. Continue with physical therapy as directed for partial weightbearing left lower extremity and safety precautions; 2. Discharge planning/case management; patient will need longterm f acility for the next 2 to 4 weeks as there is no one to care for him at home and no family members?; 3. Appropriate pain management as directed with p.o. narcotic medication; 4. DVT prophylaxis Objective Vital signs: Vital Signs - 12hr 04/05/21 04/05/21 04/05/21 08:09 08:11 08:22 Temperature 98.2 F Pulse Rate 87 99 H 92 H Respiratory 18 Rate Blood Pressure 159/94 O2 Sat by Pulse 98 99 Oximetry - Labs CBC & BMP: 04/05/21 10:11 04/05/21 05:47 Labs: Abnormal lab results 04/05/21 04/05/21 Range/Units 05:47 10:11 WBC 14.2 H (4.5-11.0) K/mm3 RBC 2.30 L (3.65-5.03) M/mm3 Hgb 7.7 L (11.8-15.2) gm/dl Hct 22.5 L (35.5-45.6) % MCV 98 H (84-94) fl MCH 33 H (28-32) pg RDW 12.1 L (13.2-15.2) % Lymph % (Auto) 8.4 L (13.4-35.0) % [place] % (Auto) 8.8 H (0.0-7.3) % [place] # (Auto) 1.3 H (0.0-0.8) K/mm3 Seg Neutrophils % 82.7 H (40.0-70.0) % Seg Neutrophils # 11.8 H (1.8-7.7) K/mm3 BUN 32 H (9-20) mg/dL Creatinine 1.5 H (0.8-1.3) mg/dL Glucose 229 H (75-100) mg/dL
[2021-04-05] MEDS: LATANOPROST 0.005% OPHTH SOLN 2.5 ML OD SCH (22:46)
--- NOTE | 2021-04-05 22:49 | Progress Note ---
Assessment and Plan Assessment and Plan: -- Fracture of malvin-prosthetic left proximal femur Patient admitted and placed on analgesic medication. Orthopedic evaluated and initially recommended no surgical intervention However, deemed to need surgery significant pain and inability to ambulate Primary orthopedic recommended to have surgery here s/p ORIF, fracture stabilized 04/04 Postoperatively stable -- Hyperkalemia Patient given sodium bicarbonate, albuterol neb treatment, insulin and glucose and Kayexalate. Will monitor potassium levels. Nephrology consulted, follow BMP -- Hypertension We will cont routine home medications and monitor vital signs closely. --Positive for COVID-19 Patient tested positive as outpatient, repeat test also positive Follow inflammatory markers, patient resting on room air and asymptomatic No need for dexamethasone on remdesivir --History of HIV infection Continue routine home medications. CD4 count was in the 400s in fall 2020 --PAULINO on possible CKD Creatinine is still high IV fluids for now --DVT prophylaxis Patient placed on sequential compression device. Rehab placement/home depending on Wednesday's evaluation -- Full code status Subjective Date of service: 04/05/21 Principal diagnosis: paulino on ckd Interval history: 60-year-old -[place] male with known history of hypertension, HIV and history of bilateral hip replacement brought into the emergency room today for evaluation of left hip pain and syncope. Patient was at a grocery store and I finished checking out when he felt lightheaded and dizzy and subsequently found himself on the floor. He denies any head injury and denies any headache, denies any blurry vision and no diaphoresis. Patient denies any chest pain or shortness of breath, no nausea vomiting no abdominal pain. Denies any hematuria or dysuria. Upon arrival in the emergency room today he complained of severe pain in his left hip. Work-up in the emergency room today, x-ray of the hip reveals acute fracture of the proximal femoral shaft which extends towards the base of the greater trochanter. CT scan of the head shows no acute intracranial abnormality. 03/30: Continue to monitor potassium and creatinine level. Nephrology following. COVID-19 test is positive but patient is asymptomatic so no need for dexamethasone or remdesivir. Will consult ID for further recommendation. Ordered PT eval 03/31: Improved potassium and creatinine level. Wait for PT eval and ID recommendation. Monitor BMP. If BMP stable and clears by PT possible discharge tomorrow 04/01/2021: Patient is alert and oriented to her but not in acute distress at rest. Patient reports that he has not been able to get out of bed since admitted due to significant pain from the fracture and left femur. He had been living independently until he had a dizzy spell and fell at a store when he went there to buy medications for COVID-19 positive test. Patient reports that he is fully vaccinated and was staying at home. Per patient, routine test at PCPs office was positive for COVID-19. Currently patient has been free of respiratory symptoms like cough, dyspnea or hypoxia. Patient states that he cannot be discharged since he is bedbound from pain. I called and spoke to orthopedic who will reevaluate patient. I also discussed with the disease case manager rn for possible subacute rehab placement. Creatinine improved/stable 2.3, 2.6 and 2.0., Neph[place]. 04/02, scheduled for orthopedic surgery tomorrow. Pain control. Remains bedbound. Stable. 04/03: Surgery rescheduled for tomorrow. Pain controlled adequately. No acute respiratory symptoms. PAULINO improving. 04/04: Postoperative stable. PAULINO improving. Home PT versus rehab placement. He lives alone. 04/05/2021 Patient stable Physical therapy Home versus rehab placement Objective - Constitutional Vitals: Vital Signs - 12hr 04/05/21 04/05/21 16:19 19:26 Temperature 98.5 F 98.7 F Pulse Rate 83 82 Respiratory 18 18 Rate Blood Pressure 133/83 129/87 O2 Sat by Pulse 97 97 Oximetry General appearance: Present: no acute distress, well-nourished - EENT Eyes: PERRL, EOM intact ENT: hearing intact, clear oral mucosa Ears: bilateral: normal - Neck Neck: supple, normal ROM - Respiratory Respiratory effort: normal Respiratory: bilateral: CTA - Breasts Breasts: normal - Cardiovascular Heart rate: 78 Rhythm: regular Heart Sounds: Present: S1 & S2. Absent: gallop, rub Extremities: pulses intact, No edema, normal color, Full ROM - Gastrointestinal General gastrointestinal: Present: soft, non-tender, non-distended, normal bowel sounds - Genitourinary Male genitourinary: normal - Integumentary Integumentary: clear, warm, dry - Musculoskeletal Musculoskeletal: 1, strength equal bilaterally - Neurologic Neurologic: moves all extremities - Psychiatric Psychiatric: memory intact, appropriate mood/affect, intact judgment & insight - Labs CBC & Chem 7: 04/06/21 07:05 04/06/21 07:05 Labs: Abnormal lab results 04/05/21 04/05/21 04/05/21 Range/Units 05:47 10:11 21:37 WBC 14.2 H (4.5-11.0) K/mm3 RBC 2.30 L (3.65-5.03) M/mm3 Hgb 7.7 L (11.8-15.2) gm/dl Hct 22.5 L (35.5-45.6) % MCV 98 H (84-94) fl MCH 33 H (28-32) pg RDW 12.1 L (13.2-15.2) % Lymph % (Auto) 8.4 L (13.4-35.0) % [place] % (Auto) 8.8 H (0.0-7.3) % [place] # (Auto) 1.3 H (0.0-0.8) K/mm3 Seg Neutrophils % 82.7 H (40.0-70.0) % Seg Neutrophils # 11.8 H (1.8-7.7) K/mm3 BUN 32 H (9-20) mg/dL Creatinine 1.5 H (0.8-1.3) mg/dL Glucose 229 H (75-100) mg/dL POC Glucose 264 H (70-105) mg/dL HEART Score - HEART Score Troponin: Troponin T 0.054 ng/mL (0.00-0.029) H 03/28/21 21:06
[2021-04-05] MEDS: ACETAMINOPHEN 325 MG TAB PO PRN (23:04)
[2021-04-06] MEDS: MORPHINE 4 MG/1 ML INJ IV PRN (04:54)
[2021-04-06 08:23] LABS: Basophils % (Auto) 0.1 % (0.0-1.8); Hematocrit 20.6 % (35.5-45.6); Hemoglobin 6.9 gm/dl (11.8-15.2); Lymphocytes # (Auto) 1.3 K/mm3 (1.2-5.4); Lymphocytes % (Auto) 9.3 % (13.4-35.0); Mean Corpuscular HGB Conc 33 % (32-34); Mean Corpuscular Volume 98 fl (84-94); Monocytes # (Auto) 1.4 K/mm3 (0.0-0.8); Monocytes % (Auto) 10.6 % (0.0-7.3); Platelet Count 260 K/mm3 (140-440); Red Cell Distribution Width 12.4 % (13.2-15.2)
[2021-04-06 08:41] LABS: Calcium 9.2 mg/dL (8.4-10.2)
[2021-04-06] MEDS: oxyCODONE /ACETAMINOPHEN 5-325MG TAB PO PRN ×3 (10:15→22:48)
[2021-04-06] MEDS: CITALOPRAM 20 MG TAB PO SCH (10:15)
[2021-04-06] MEDS: RITONAVIR 100 MG TAB PO SCH (10:16)
[2021-04-06] MEDS: DOLUTEGRAVIR 50 MG TAB PO SCH (10:16)
[2021-04-06] MEDS: DARUNAVIR 800 MG TAB PO SCH (10:16)
[2021-04-06] MEDS: ABACAVIR 300 MG TAB PO SCH (10:17)
[2021-04-06] MEDS: TIMOLOL 0.5% OPHTH SOLN 5 ML OU SCH ×2 (10:20→22:49)
--- NOTE | 2021-04-06 11:05 | Progress Note ---
Subjective Date of service: 04/06/21 Principal diagnosis: paulino on ckd Interval history: Impression: * Acute kidney injury on stage III CKD (followed by Dr. Radha Szymanski) --Baseline SCr 1.9mg/dL; SCr 1.87mg/dL on Mar 01 2021 * Left femur fracture * Syncope * Hyperkalemia * Metabolic acidosis * Hypertension - now with relative hypotension * Type II DM * UTI * Anemia * Hx of C Diff colitis (hospitalization - Dec 2020 and Feb 2021) Plan: * No acute need for renal replacement therapy * rec PRBC transfusion today and prn Hb less than 7.5 * continue abx for uti * Hyperkalemia improved with medical management * Continue IVF. * s/p hip repair * cr appears to be at baseline at last check * Dose medications for renal function * Avoid potential nephrotoxins * Strict I/O * AM labs noted, will follow peripherally Subjective: labs and chart reveiwed events noted primary team exam noted Objective - Vital Signs Vital signs: Vital Signs - 12hr 04/06/21 05:04 Temperature 97.8 F Pulse Rate 78 Respiratory 16 Rate Blood Pressure 130/85 O2 Sat by Pulse 97 Oximetry - Lab 04/06/21 07:05 04/06/21 07:05 Most recent lab results Calcium 9.2 mg/dL (8.4-10.2) 04/06/21 07:05 Phosphorus 3.60 mg/dL (2.5-4.5) 04/02/21 05:30 Magnesium 2.30 mg/dL (1.7-2.3) 03/28/21 21:06 Medications & Allergies - Medications Allergies/Adverse Reactions: Allergies No Known Allergies Allergy (Verified 04/02/21 13:31) Home Medications: Home Medications Medication Instructions Recorded Confirmed Last Taken Type Abacavir/Dolutegravir/Lamivudi 1 each PO QDAY 04/02/21 04/02/21 03/28/21 History [Triumeq (Nf)] Atorvastatin Calcium [Lipitor] 80 mg PO QHS 04/02/21 04/02/21 03/28/21 History Citalopram [celeXA] 20 mg PO QDAY 04/02/21 04/02/21 03/28/21 History Darunavir [Prezista] 800 mg PO QDAY 04/02/21 04/02/21 03/28/21 History Dulaglutide [Trulicity] 1.5 mg SQ QWEEK 04/02/21 04/02/21 03/28/21 History Latanoprost 0.005% [Xalatan 0.005%] 1 drop OD QHS 04/02/21 04/02/21 03/28/21 History Ritonavir [Norvir] 100 mg PO QDAY 04/02/21 04/02/21 03/28/21 History Testosterone Cypionate 100 mg IM Q2W 04/02/21 04/02/21 03/28/21 History Timolol 0.5% [Timoptic] 1 drop OU BID 04/02/21 04/02/21 03/28/21 History amLODIPine [Norvasc] 5 mg PO DAILY 04/02/21 04/02/21 03/28/21 History hydroCHLOROthiazide [HCTZ] 25 mg PO QDAY 04/02/21 04/02/21 03/28/21 History lisinopriL [Zestril TAB] 40 mg PO QDAY 04/02/21 04/02/21 03/28/21 History valACYclovir [Valtrex] 500 mg PO BID PRN 04/02/21 04/02/21 03/28/21 History Active Medications: Generic Name Dose Route Start Last Admin Trade Name Freq PRN Reason Stop Dose Admin Abacavir Sulfate 600 mg 04/01/21 17:00 04/06/21 10:17 Abacavir 300 Mg Tab PO 600 mg DAILY SUELLEN Administration Acetaminophen 650 mg 03/29/21 00:46 04/05/21 23:04 Acetaminophen 325 Mg Tab PO 650 mg Q4H PRN Administration Pain MILD(1-3)/Fever >100.5/OLIVAREZ Atorvastatin Calcium 80 mg 04/02/21 22:00 04/05/21 22:46 Atorvastatin 40 Mg Tab PO 80 mg QHS SUELLEN Administration Citalopram Hydrobromide 20 mg 04/02/21 16:00 04/06/21 10:15 Citalopram 20 Mg Tab PO 20 mg DAILY SUELLEN Administration Darunavir 800 mg 04/01/21 16:30 04/06/21 10:16 Darunavir 800 Mg Tab PO 800 mg QDAY SUELLEN Administration Sodium Bicarbonate 75 meq/ 1,075 mls @ 125 mls/hr 03/30/21 04:00 04/04/21 22:05 Sodium Chloride IV 125 mls/hr DIRECT SUELLEN Administration Lamivudine 300 mg 04/01/21 17:00 04/06/21 10:17 Lamivudine 150 Mg Tab PO 300 mg DAILY SUELLEN Administration Latanoprost 1 drops 04/02/21 22:00 04/05/21 22:46 Latanoprost 0.005% Ophth Soln 2.5 Ml OD 1 drops QHS SUELLEN Administration Magnesium Hydroxide 30 ml 03/29/21 00:46 Magnesium Hydroxide (Mom) Oral Liqd Udc PO Q4H PRN Constipation Morphine Sulfate 4 mg 03/29/21 00:46 04/06/21 04:54 Morphine 4 Mg/1 Ml Inj IV 4 mg Q4H PRN Administration Pain , Severe (7-10) Ondansetron HCl 4 mg 03/29/21 00:46 04/05/21 09:16 Ondansetron 4 Mg/2 Ml Inj IV 4 mg Q8H PRN Administration Nausea And Vomiting Oxycodone/Acetaminophen 1 tab 03/30/21 14:16 04/06/21 10:15 Oxycodone /Acetaminophen 5-325mg Tab PO 1 tab Q6H PRN Administration Pain, Moderate (4-6) Ritonavir 100 mg 04/01/21 16:30 04/06/21 10:16 Ritonavir 100 Mg Tab PO 100 mg QDAY SUELLEN Administration Sodium Chloride 10 ml 03/29/21 10:00 04/06/21 10:17 Sodium Chloride 0.9% 10 Ml Flush Syringe IV 10 ml BID SUELLEN Administration Sodium Chloride 10 ml 03/29/21 00:46 Sodium Chloride 0.9% 10 Ml Flush Syringe IV PRN PRN LINE FLUSH Timolol Maleate 1 drops 04/02/21 22:00 04/06/21 10:20 Timolol 0.5% Ophth Soln 5 Ml OU 1 drops BID SUELLEN Administration
[2021-04-06] MEDS: SODIUM CHLORIDE 0.9% 1000 ML 1,000 ML IV SCH (13:45)
[2021-04-06] MEDS: INSULIN LISPRO 100 UNIT/ML SUB-Q SCH ×2 (17:41→22:57)
[2021-04-06] MEDS: LATANOPROST 0.005% OPHTH SOLN 2.5 ML OD SCH (22:52)
[2021-04-07] MEDS: MORPHINE 4 MG/1 ML INJ IV PRN ×3 (02:45→17:03)
[2021-04-07] MEDS: SODIUM CHLORIDE 0.9% 1000 ML 1,000 ML IV SCH ×2 (02:51→22:26)
--- NOTE | 2021-04-07 09:00 | Progress Note ---
Assessment and Plan Assessment and Plan: -- Fracture of malvin-prosthetic left proximal femur Patient admitted and placed on analgesic medication. Orthopedic evaluated and initially recommended no surgical intervention However, deemed to need surgery significant pain and inability to ambulate Primary orthopedic recommended to have surgery here s/p ORIF, fracture stabilized 04/04 Postoperatively stable -- Hyperkalemia Patient given sodium bicarbonate, albuterol neb treatment, insulin and glucose and Kayexalate. Will monitor potassium levels. Nephrology consulted, follow BMP -- Hypertension We will cont routine home medications and monitor vital signs closely. --Positive for COVID-19 Patient tested positive as outpatient, repeat test also positive Follow inflammatory markers, patient resting on room air and asymptomatic No need for dexamethasone on remdesivir --History of HIV infection Continue routine home medications. CD4 count was in the 400s in fall 2020 --PAULINO on possible CKD Creatinine is 1.7 IV fluids for now --DVT prophylaxis Patient placed on sequential compression device. Rehab placement/home depending on Wednesday's evaluation -- Full code status Subjective Date of service: 04/06/21 Principal diagnosis: paulino on ckd Interval history: 60-year-old -[place] male with known history of hypertension, HIV and history of bilateral hip replacement brought into the emergency room today for evaluation of left hip pain and syncope. Patient was at a grocery store and I finished checking out when he felt lightheaded and dizzy and subsequently found himself on the floor. He denies any head injury and denies any headache, denies any blurry vision and no diaphoresis. Patient denies any chest pain or shortness of breath, no nausea vomiting no abdominal pain. Denies any hematuria or dysuria. Upon arrival in the emergency room today he complained of severe pain in his left hip. Work-up in the emergency room today, x-ray of the hip reveals acute fracture of the proximal femoral shaft which extends towards the base of the greater trochanter. CT scan of the head shows no acute intracranial abnormality. Daily clinical course: 03/30: Continue to monitor potassium and creatinine level. Nephrology following. COVID-19 test is positive but patient is asymptomatic so no need for dexamethasone or remdesivir. Will consult ID for further recommendation. Ordered PT eval 03/31: Improved potassium and creatinine level. Wait for PT eval and ID recommendation. Monitor BMP. If BMP stable and clears by PT possible discharge tomorrow 04/01/2021: Patient is alert and oriented to her but not in acute distress at rest. Patient reports that he has not been able to get out of bed since admitted due to significant pain from the fracture and left femur. He had been living independently until he had a dizzy spell and fell at a store when he went there to buy medications for COVID-19 positive test. Patient reports that he is fully vaccinated and was staying at home. Per patient, routine test at PCPs office was positive for COVID-19. Currently patient has been free of respiratory symptoms like cough, dyspnea or hypoxia. Patient states that he cannot be discharged since he is bedbound from pain. I called and spoke to orthopedic who will reevaluate patient. I also discussed with the community case manager for possible subacute rehab placement. Creatinine improved/stable 2.3, 2.6 and 2.0., Nephrology following. 04/02, scheduled for orthopedic surgery tomorrow. Pain control. Remains bedbound. Stable. 04/03: Surgery rescheduled for tomorrow. Pain controlled adequately. No acute respiratory symptoms. PAULINO improving. 04/04: Postoperative stable. PAULINO improving. Home PT versus rehab placement. He lives alone: 04/05/2021 . He was at his rehab placement 04/06/2021 PT versus rehab placement Objective - Constitutional Vitals: Vital Signs - 12hr 04/06/21 04/07/21 22:58 03:34 Temperature 97.3 F L Pulse Rate 79 Respiratory 16 16 Rate Blood Pressure 129/86 O2 Sat by Pulse 98 98 Oximetry General appearance: Present: no acute distress, well-nourished - EENT Eyes: PERRL, EOM intact ENT: hearing intact, clear oral mucosa Ears: bilateral: normal - Neck Neck: supple, normal ROM - Respiratory Respiratory effort: normal Respiratory: bilateral: CTA - Breasts Breasts: normal - Cardiovascular Heart rate: 78 Rhythm: regular Heart Sounds: Present: S1 & S2. Absent: gallop, rub Extremities: pulses intact, No edema, normal color, Full ROM - Gastrointestinal General gastrointestinal: Present: soft, non-tender, non-distended, normal bowel sounds - Genitourinary Male genitourinary: normal - Integumentary Integumentary: clear, warm, dry - Musculoskeletal Musculoskeletal: 1, strength equal bilaterally - Neurologic Neurologic: moves all extremities - Psychiatric Psychiatric: memory intact, appropriate mood/affect, intact judgment & insight - Allied health notes Allied health notes reviewed: nursing, case management - Labs CBC & Chem 7: 04/06/21 07:05 04/06/21 07:05 Labs: Abnormal lab results 04/06/21 04/06/21 04/06/21 Range/Units 10:52 15:45 22:52 POC Glucose 262 H 237 H 281 H (70-105) mg/dL HEART Score - HEART Score Troponin: Troponin T 0.054 ng/mL (0.00-0.029) H 03/28/21 21:06
[2021-04-07] MEDS: INSULIN LISPRO 100 UNIT/ML SUB-Q SCH ×4 (09:28→22:43)
[2021-04-07] MEDS: CITALOPRAM 20 MG TAB PO SCH (09:29)
[2021-04-07] MEDS: ABACAVIR 300 MG TAB PO SCH (09:31)
[2021-04-07] MEDS: RITONAVIR 100 MG TAB PO SCH (09:32)
[2021-04-07] MEDS: DOLUTEGRAVIR 50 MG TAB PO SCH (09:32)
[2021-04-07] MEDS: TIMOLOL 0.5% OPHTH SOLN 5 ML OU SCH ×2 (09:40→22:55)
--- NOTE | 2021-04-07 09:45 | Progress Note ---
Assessment and Plan Impression: * Acute kidney injury on stage III CKD (followed by Dr. Radha Szymanski) --Baseline SCr 1.9mg/dL; SCr 1.87mg/dL on Mar 01 2021 * Left femur fracture * COVID 19 infection * Syncope * Hyperkalemia * Metabolic acidosis * Hypertension * Type II DM * Anemia * Hx of C Diff colitis (hospitalization - Dec 2020 and Feb 2021) Plan: * AM labs not available at time of visit. However, renal function has remained at baseline. No acute need for renal replacement therapy * Hyperkalemia improved with medical management * Blood pressure is increasing - resume home dose Amlodipine 5mg daily * Encouraged po hydration * Dose medications for renal function * Avoid potential nephrotoxins * Strict I/O * Will follow peripherally Subjective Date of service: 04/07/21 Principal diagnosis: paulino on ckd Interval history: Chart, vitals, labs reviewed. Objective - Exam Narrative Exam: Physical exam deferred; primary team exam noted - Vital Signs Vital signs: Vital Signs - 12hr 04/06/21 04/07/21 22:58 03:34 Temperature 97.3 F L Pulse Rate 79 Respiratory 16 16 Rate Blood Pressure 129/86 O2 Sat by Pulse 98 98 Oximetry - Lab 04/06/21 07:05 04/07/21 10:19 Most recent lab results Calcium 9.2 mg/dL (8.4-10.2) 04/06/21 07:05 Phosphorus 3.60 mg/dL (2.5-4.5) 04/02/21 05:30 Magnesium 2.30 mg/dL (1.7-2.3) 03/28/21 21:06 Medications & Allergies - Medications Allergies/Adverse Reactions: Allergies No Known Allergies Allergy (Verified 04/02/21 13:31) Home Medications: Home Medications Medication Instructions Recorded Confirmed Last Taken Type Abacavir/Dolutegravir/Lamivudi 1 each PO QDAY 04/02/21 04/02/21 03/28/21 History [Triumeq (Nf)] Atorvastatin Calcium [Lipitor] 80 mg PO QHS 04/02/21 04/02/21 03/28/21 History Citalopram [celeXA] 20 mg PO QDAY 04/02/21 04/02/21 03/28/21 History Darunavir [Prezista] 800 mg PO QDAY 04/02/21 04/02/21 03/28/21 History Dulaglutide [Trulicity] 1.5 mg SQ QWEEK 04/02/21 04/02/21 03/28/21 History Latanoprost 0.005% [Xalatan 0.005%] 1 drop OD QHS 04/02/21 04/02/21 03/28/21 History Ritonavir [Norvir] 100 mg PO QDAY 04/02/21 04/02/21 03/28/21 History Testosterone Cypionate 100 mg IM Q2W 04/02/21 04/02/21 03/28/21 History Timolol 0.5% [Timoptic] 1 drop OU BID 04/02/21 04/02/21 03/28/21 History amLODIPine [Norvasc] 5 mg PO DAILY 04/02/21 04/02/21 03/28/21 History hydroCHLOROthiazide [HCTZ] 25 mg PO QDAY 04/02/21 04/02/21 03/28/21 History lisinopriL [Zestril TAB] 40 mg PO QDAY 04/02/21 04/02/21 03/28/21 History valACYclovir [Valtrex] 500 mg PO BID PRN 04/02/21 04/02/21 03/28/21 History Active Medications: Generic Name Dose Route Start Last Admin Trade Name Freq PRN Reason Stop Dose Admin Abacavir Sulfate 600 mg 04/01/21 17:00 04/07/21 09:31 Abacavir 300 Mg Tab PO 600 mg DAILY SUELLEN Administration Acetaminophen 650 mg 03/29/21 00:46 04/05/21 23:04 Acetaminophen 325 Mg Tab PO 650 mg Q4H PRN Administration Pain MILD(1-3)/Fever >100.5/OLIVAREZ Atorvastatin Calcium 80 mg 04/02/21 22:00 04/06/21 22:48 Atorvastatin 40 Mg Tab PO 80 mg QHS SUELLEN Administration Citalopram Hydrobromide 20 mg 04/02/21 16:00 04/07/21 09:29 Citalopram 20 Mg Tab PO 20 mg DAILY SUELLEN Administration Darunavir 800 mg 04/01/21 16:30 04/06/21 10:16 Darunavir 800 Mg Tab PO 800 mg QDAY SUELLEN Administration Sodium Chloride 1,000 mls @ 75 mls/hr 04/06/21 11:15 04/07/21 02:51 Nacl 0.9% 1000 Ml IV 75 mls/hr DIRECT SUELLEN Administration Insulin Human Lispro 0 unit 04/06/21 18:00 04/07/21 09:28 Insulin Lispro 100 Unit/Ml SUB-Q 6 unit ACHS SUELLEN Administration Protocol Lamivudine 300 mg 04/01/21 17:00 04/07/21 09:30 Lamivudine 150 Mg Tab PO 300 mg DAILY SUELLEN Administration Latanoprost 1 drops 04/02/21 22:00 04/06/21 22:52 Latanoprost 0.005% Ophth Soln 2.5 Ml OD 1 drops QHS SUELLEN Administration Morphine Sulfate 4 mg 03/29/21 00:46 04/07/21 06:34 Morphine 4 Mg/1 Ml Inj IV 4 mg Q4H PRN Administration Pain , Severe (7-10) Ondansetron HCl 4 mg 03/29/21 00:46 04/05/21 09:16 Ondansetron 4 Mg/2 Ml Inj IV 4 mg Q8H PRN Administration Nausea And Vomiting Oxycodone/Acetaminophen 1 tab 03/30/21 14:16 04/06/21 22:48 Oxycodone /Acetaminophen 5-325mg Tab PO 1 tab Q6H PRN Administration Pain, Moderate (4-6) Ritonavir 100 mg 04/01/21 16:30 04/07/21 09:32 Ritonavir 100 Mg Tab PO 100 mg QDAY SUELLEN Administration Sodium Chloride 10 ml 03/29/21 10:00 04/07/21 09:33 Sodium Chloride 0.9% 10 Ml Flush Syringe IV 10 ml BID SUELLEN Administration Sodium Chloride 10 ml 03/29/21 00:46 Sodium Chloride 0.9% 10 Ml Flush Syringe IV PRN PRN LINE FLUSH Timolol Maleate 1 drops 04/02/21 22:00 04/07/21 09:40 Timolol 0.5% Ophth Soln 5 Ml OU 1 drops BID SUELLEN Administration
[2021-04-07 11:24] LABS: Calcium 8.8 mg/dL (8.4-10.2)
[2021-04-07] MEDS: DARUNAVIR 800 MG TAB PO SCH (17:43)
[2021-04-07] MEDS: oxyCODONE /ACETAMINOPHEN 5-325MG TAB PO PRN (22:23)
[2021-04-07] MEDS: LATANOPROST 0.005% OPHTH SOLN 2.5 ML OD SCH (22:54)
--- NOTE | 2021-04-08 02:15 | Progress Note ---
Assessment and Plan Assessment and Plan: -- Fracture of malvin-prosthetic left proximal femur Patient admitted and placed on analgesic medication. Orthopedic evaluated and initially recommended no surgical intervention However, deemed to need surgery significant pain and inability to ambulate Primary orthopedic recommended to have surgery here s/p ORIF, fracture stabilized 04/04 Postoperatively stable Discharge home with home PT Case management is confirmed Call case management tomorrow for discharge -- Hyperkalemia Resolved -- Hypertension We will cont routine home medications and monitor vital signs closely. --Positive for COVID-19 Patient tested positive as outpatient, repeat test also positive Follow inflammatory markers, patient resting on room air and asymptomatic No need for dexamethasone on remdesivir --History of HIV infection Continue routine home medications. CD4 count was in the 400s in fall 2020 --PAULINO on possible CKD Improved Creatinine is 1.4 --DVT prophylaxis Patient placed on sequential compression device. Rehab placement/home depending on Wednesday's evaluation -- Full code status Patient can be discharged tomorrow with home health Wanted to discharge today but case management wanted PT to be arranged at home Subjective Date of service: 04/07/21 Principal diagnosis: paulino on ckd, femur fracture Interval history: 60-year-old -Filipino male with known history of hypertension, HIV and history of bilateral hip replacement brought into the emergency room today for evaluation of left hip pain and syncope. Patient was at a grocery store and I finished checking out when he felt lightheaded and dizzy and subsequently found himself on the floor. He denies any head injury and denies any headache, denies any blurry vision and no diaphoresis. Patient denies any chest pain or shortness of breath, no nausea vomiting no abdominal pain. Denies any hematuria or dysuria. Upon arrival in the emergency room today he complained of severe pain in his left hip. Work-up in the emergency room today, x-ray of the hip reveals acute fracture of the proximal femoral shaft which extends towards the base of the greater trochanter. CT scan of the head shows no acute intracranial abnormality. 03/30: Continue to monitor potassium and creatinine level. Nephrology following. COVID-19 test is positive but patient is asymptomatic so no need for dexamethasone or remdesivir. Will consult ID for further recommendation. Ordered PT eval 03/31: Improved potassium and creatinine level. Wait for PT eval and ID recommendation. Monitor BMP. If BMP stable and clears by PT possible discharge tomorrow 04/01/2021: Patient is alert and oriented to her but not in acute distress at rest. Patient reports that he has not been able to get out of bed since admitted due to significant pain from the fracture and left femur. He had been living independently until he had a dizzy spell and fell at a store when he went there to buy medications for COVID-19 positive test. Patient reports that he is fully vaccinated and was staying at home. Per patient, routine test at PCPs office was positive for COVID-19. Currently patient has been free of respiratory symptoms like cough, dyspnea or hypoxia. Patient states that he cannot be discharged since he is bedbound from pain. I called and spoke to orthopedic who will reevaluate patient. I also discussed with the case briefer for possible subacute rehab placement. Creatinine improved/stable 2.3, 2.6 and 2.0., Nephrology following. 04/02, scheduled for orthopedic surgery tomorrow. Pain control. Remains bedbound. Stable. 04/03: Surgery rescheduled for tomorrow. Pain controlled adequately. No acute respiratory symptoms. PAULINO improving. 04/04: Postoperative stable. PAULINO improving. Home PT versus rehab placement. He lives alone. 04/05/2021 Patient stable Physical therapy Home versus rehab placement Objective - Constitutional Vitals: Vital Signs - 12hr 04/07/21 04/07/21 04/07/21 14:17 16:20 22:00 Temperature 97.4 F L Pulse Rate 89 Respiratory 18 18 Rate Blood Pressure 154/91 O2 Sat by Pulse 95 98 95 Oximetry 04/07/21 22:01 Temperature 98.5 F Pulse Rate 94 H Respiratory 18 Rate Blood Pressure 169/102 O2 Sat by Pulse 96 Oximetry General appearance: Present: no acute distress, well-nourished - EENT Eyes: PERRL, EOM intact ENT: hearing intact, clear oral mucosa Ears: bilateral: normal - Neck Neck: supple, normal ROM - Respiratory Respiratory effort: normal Respiratory: bilateral: CTA - Breasts Breasts: normal - Cardiovascular Heart rate: 78 Rhythm: regular Heart Sounds: Present: S1 & S2. Absent: gallop, rub Extremities: pulses intact, No edema, normal color, Full ROM - Gastrointestinal General gastrointestinal: Present: soft, non-tender, non-distended, normal bowel sounds - Genitourinary Male genitourinary: normal - Integumentary Integumentary: clear, warm, dry - Musculoskeletal Musculoskeletal: 1, strength equal bilaterally - Neurologic Neurologic: moves all extremities - Psychiatric Psychiatric: memory intact, appropriate mood/affect, intact judgment & insight - Labs CBC & Chem 7: 04/06/21 07:05 04/08/21 05:09 Labs: Abnormal lab results 04/07/21 04/07/21 04/07/21 Range/Units 10:19 12:43 15:32 Chloride 109.4 H (98-107) mmol/L BUN 31 H (9-20) mg/dL Creatinine 1.5 H (0.8-1.3) mg/dL Glucose 231 H (75-100) mg/dL POC Glucose 119 H 155 H (70-105) mg/dL 04/07/21 Range/Units 22:38 Chloride (98-107) mmol/L BUN (9-20) mg/dL Creatinine (0.8-1.3) mg/dL Glucose (75-100) mg/dL POC Glucose 135 H (70-105) mg/dL HEART Score - HEART Score Troponin: Troponin T 0.054 ng/mL (0.00-0.029) H 03/28/21 21:06
[2021-04-08 06:44] LABS: BUN/Creatinine Ratio 19; Blood Urea Nitrogen 26 mg/dL (9-20); Calcium 9.3 mg/dL (8.4-10.2); Hemolysis Index 2
[2021-04-08] MEDS: INSULIN LISPRO 100 UNIT/ML SUB-Q SCH ×4 (08:20→23:28)
[2021-04-08] MEDS: RITONAVIR 100 MG TAB PO SCH (09:38)
[2021-04-08] MEDS: ABACAVIR 300 MG TAB PO SCH (09:39)
[2021-04-08] MEDS: DOLUTEGRAVIR 50 MG TAB PO SCH (09:39)
[2021-04-08] MEDS: DARUNAVIR 800 MG TAB PO SCH (09:40)
[2021-04-08] MEDS: CITALOPRAM 20 MG TAB PO SCH ×2 (09:41→09:54)
[2021-04-08] MEDS: amLODIPine 5 MG TAB PO SCH (09:41)
[2021-04-08] MEDS: ONDANSETRON 4 MG/2 ML INJ IV PRN ×2 (09:45→22:58)
[2021-04-08] MEDS: MORPHINE 4 MG/1 ML INJ IV PRN (09:45)
[2021-04-08] MEDS: TIMOLOL 0.5% OPHTH SOLN 5 ML OU SCH ×2 (10:23→23:00)
[2021-04-08] MEDS: oxyCODONE /ACETAMINOPHEN 5-325MG TAB PO PRN ×2 (12:50→22:52)
[2021-04-08] MEDS: LATANOPROST 0.005% OPHTH SOLN 2.5 ML OD SCH (23:04)
[2021-04-09] MEDS: oxyCODONE /ACETAMINOPHEN 5-325MG TAB PO PRN ×2 (06:00→22:38)
--- NOTE | 2021-04-09 07:14 | Progress Note ---
Assessment and Plan Assessment and Plan: -- Fracture of malvin-prosthetic left proximal femur Patient admitted and placed on analgesic medication. Orthopedic evaluated and initially recommended no surgical intervention However, deemed to need surgery significant pain and inability to ambulate Primary orthopedic recommended to have surgery here s/p ORIF, fracture stabilized 04/04 Postoperatively stable Discharge home with home PT Case management is confirmed Call case management tomorrow for discharge -- Hyperkalemia Resolved -- Hypertension We will cont routine home medications and monitor vital signs closely. --Positive for COVID-19 Patient tested positive as outpatient, repeat test also positive Follow inflammatory markers, patient resting on room air and asymptomatic No need for dexamethasone on remdesivir --History of HIV infection Continue routine home medications. CD4 count was in the 400s in fall 2020 --PAULINO on possible CKD Improved Creatinine is 1.4 --DVT prophylaxis Patient placed on sequential compression device. Rehab placement/home depending on Wednesday's evaluation -- Full code status Patient can be discharged tomorrow with home health Wanted to discharge today but case management wanted PT to be arranged at home Subjective Date of service: 04/07/21 Principal diagnosis: paulino on ckd, femur fracture Interval history: 60-year-old -Niuean male with known history of hypertension, HIV and history of bilateral hip replacement brought into the emergency room today for evaluation of left hip pain and syncope. Patient was at a grocery store and I finished checking out when he felt lightheaded and dizzy and subsequently found himself on the floor. He denies any head injury and denies any headache, denies any blurry vision and no diaphoresis. Patient denies any chest pain or shortness of breath, no nausea vomiting no abdominal pain. Denies any hematuria or dysuria. Upon arrival in the emergency room today he complained of severe pain in his left hip. Work-up in the emergency room today, x-ray of the hip reveals acute fracture of the proximal femoral shaft which extends towards the base of the greater trochanter. CT scan of the head shows no acute intracranial abnormality. 03/30: Continue to monitor potassium and creatinine level. Nephrology following. COVID-19 test is positive but patient is asymptomatic so no need for dexamethasone or remdesivir. Will consult ID for further recommendation. Ordered PT eval 03/31: Improved potassium and creatinine level. Wait for PT eval and ID recommendation. Monitor BMP. If BMP stable and clears by PT possible discharge tomorrow 04/01/2021: Patient is alert and oriented to her but not in acute distress at rest. Patient reports that he has not been able to get out of bed since admitted due to significant pain from the fracture and left femur. He had been living independently until he had a dizzy spell and fell at a store when he went there to buy medications for COVID-19 positive test. Patient reports that he is fully vaccinated and was staying at home. Per patient, routine test at PCPs office was positive for COVID-19. Currently patient has been free of respiratory symptoms like cough, dyspnea or hypoxia. Patient states that he cannot be discharged since he is bedbound from pain. I called and spoke to orthopedic who will reevaluate patient. I also discussed with the home health care case manager for possible subacute rehab placement. Creatinine improved/stable 2.3, 2.6 and 2.0., Nephrology following. 04/02, scheduled for orthopedic surgery tomorrow. Pain control. Remains bedbound. Stable. 04/03: Surgery rescheduled for tomorrow. Pain controlled adequately. No acute respiratory symptoms. PAULINO improving. 04/04: Postoperative stable. PAULINO improving. Home PT versus rehab placement. He lives alone. 04/05/2021 Patient stable Physical therapy Home versus rehab placement Objective - Constitutional General appearance: Present: no acute distress, well-nourished - EENT Eyes: PERRL, EOM intact ENT: hearing intact, clear oral mucosa Ears: bilateral: normal - Neck Neck: supple, normal ROM - Respiratory Respiratory effort: normal Respiratory: bilateral: CTA - Breasts Breasts: normal - Cardiovascular Heart rate: 78 Rhythm: regular Heart Sounds: Present: S1 & S2. Absent: gallop, rub Extremities: pulses intact, No edema, normal color, Full ROM - Gastrointestinal General gastrointestinal: Present: soft, non-tender, non-distended, normal bowel sounds - Genitourinary Male genitourinary: normal - Integumentary Integumentary: clear, warm, dry - Musculoskeletal Musculoskeletal: 1, strength equal bilaterally - Neurologic Neurologic: moves all extremities - Psychiatric Psychiatric: memory intact, appropriate mood/affect, intact judgment & insight - Labs CBC & Chem 7: 04/06/21 07:05 04/08/21 05:09 Labs: Abnormal lab results 04/08/21 04/08/21 04/08/21 Range/Units 08:05 12:02 16:35 POC Glucose 120 H 136 H 146 H (70-105) mg/dL 04/08/21 Range/Units 23:15 POC Glucose 154 H (70-105) mg/dL HEART Score - HEART Score Troponin: Troponin T 0.054 ng/mL (0.00-0.029) H 03/28/21 21:06
--- NOTE | 2021-04-09 08:53 | Progress Note ---
Assessment and Plan Assessment and plan: -- Fracture of malvin-prosthetic left proximal femur Patient admitted and placed on analgesic medication. Orthopedic evaluated and initially recommended no surgical intervention However, deemed to need surgery significant pain and inability to ambulate Primary orthopedic recommended to have surgery here s/p ORIF, fracture stabilized 04/04 Postoperatively stable Discharge home with home PT Case management is confirmed Call case management tomorrow for discharge -- Hyperkalemia Resolved -- Hypertension We will cont routine home medications and monitor vital signs closely. --Positive for COVID-19 Patient tested positive as outpatient, repeat test also positive Follow inflammatory markers, patient resting on room air and asymptomatic No need for dexamethasone on remdesivir --History of HIV infection Continue routine home medications. CD4 count was in the 400s in fall 2020 --ANGI on possible CKD Improved Creatinine is 1.4 --DVT prophylaxis Patient placed on sequential compression device. Rehab placement/home depending on Wednesday's evaluation -- Full code status Patient can be discharged tomorrow with home health Wanted to discharge today but case management wanted PT to be arranged at home 60-year-old -Chinese male with known history of hypertension, HIV and history of bilateral hip replacement brought into the emergency room today for evaluation of left hip pain and syncope. Patient was at a grocery store and I finished checking out when he felt lightheaded and dizzy and subsequently found himself on the floor. He denies any head injury and denies any headache, denies any blurry vision and no diaphoresis. Patient denies any chest pain or shortness of breath, no nausea vomiting no abdominal pain. Denies any hematuria or dysuria. Upon arrival in the emergency room today he complained of severe pain in his left hip. Work-up in the emergency room today, x-ray of the hip reveals acute fracture of the proximal femoral shaft which extends towards the base of the greater trochanter. CT scan of the head shows no acute intracranial abnormality. 03/30: Continue to monitor potassium and creatinine level. Nephrology following. COVID-19 test is positive but patient is asymptomatic so no need for dexamethasone or remdesivir. Will consult ID for further recommendation. Ordered PT eval 03/31: Improved potassium and creatinine level. Wait for PT eval and ID recommendation. Monitor BMP. If BMP stable and clears by PT possible discharge tomorrow 04/01/2021: Patient is alert and oriented to her but not in acute distress at rest. Patient reports that he has not been able to get out of bed since admitted due to significant pain from the fracture and left femur. He had been living independently until he had a dizzy spell and fell at a store when he went there to buy medications for COVID-19 positive test. Patient reports that he is fully vaccinated and was staying at home. Per patient, routine test at PCPs office was positive for COVID-19. Currently patient has been free of respiratory symptoms like cough, dyspnea or hypoxia. Patient states that he cannot be discharged since he is bedbound from pain. I called and spoke to orthopedic who will reevaluate patient. I also discussed with the case finisher for possible subacute rehab placement. Creatinine improved/stable 2.3, 2.6 and 2.0., Nephrology following. 04/02, scheduled for orthopedic surgery tomorrow. Pain control. Remains bedbound. Stable. 04/03: Surgery rescheduled for tomorrow. Pain controlled adequately. No acute respiratory symptoms. ANGI improving. 04/04: Postoperative stable. ANGI improving. Home PT versus rehab placement. He lives alone. 04/05/2021 Patient stable Physical therapy Home versus rehab placement History Interval history: No new issues overnight. Hospitalist Physical - Constitutional Vitals: Temp Pulse Resp BP Pulse Ox 98.2 F 83 20 131/87 99 04/09/21 06:43 04/09/21 06:43 04/09/21 06:43 04/09/21 06:43 04/09/21 06:43 General appearance: Present: no acute distress, well-nourished - EENT Eyes: Present: PERRL, EOM intact ENT: hearing intact, clear oral mucosa, dentition normal - Neck Neck: Present: supple, normal ROM - Respiratory Respiratory effort: normal Respiratory: bilateral: CTA - Cardiovascular Rhythm: regular Heart Sounds: Present: S1 & S2. Absent: gallop, rub - Extremities Extremities: no ischemia, No edema, Full ROM - Abdominal General gastrointestinal: soft, non-tender, non-distended, normal bowel sounds - Integumentary Integumentary: Present: clear, warm, dry - Neurologic Neurologic: CNII-XII intact, moves all extremities HEART Score - HEART Score Troponin: Troponin T 0.054 ng/mL (0.00-0.029) H 03/28/21 21:06 Results - Labs CBC & Chem 7: 04/06/21 07:05 04/08/21 05:09 Labs: Laboratory Last Values WBC 13.6 K/mm3 (4.5-11.0) H 04/06/21 07:05 RBC 2.10 M/mm3 (3.65-5.03) L 04/06/21 07:05 Hgb 6.9 gm/dl (11.8-15.2) L 04/06/21 07:05 Hct 20.6 % (35.5-45.6) L 04/06/21 07:05 MCV 98 fl (84-94) H 04/06/21 07:05 MCH 33 pg (28-32) H 04/06/21 07:05 MCHC 33 % (32-34) 04/06/21 07:05 RDW 12.4 % (13.2-15.2) L 04/06/21 07:05 Plt Count 260 K/mm3 (140-440) 04/06/21 07:05 Lymph % (Auto) 9.3 % (13.4-35.0) L 04/06/21 07:05 [place] % (Auto) 10.6 % (0.0-7.3) H 04/06/21 07:05 Eos % (Auto) 0.0 % (0.0-4.3) 04/06/21 07:05 Baso % (Auto) 0.1 % (0.0-1.8) 04/06/21 07:05 Lymph # (Auto) 1.3 K/mm3 (1.2-5.4) 04/06/21 07:05 [place] # (Auto) 1.4 K/mm3 (0.0-0.8) H 04/06/21 07:05 Eos # (Auto) 0.0 K/mm3 (0.0-0.4) 04/06/21 07:05 Baso # (Auto) 0.0 K/mm3 (0.0-0.1) 04/06/21 07:05 Seg Neutrophils % 80.0 % (40.0-70.0) H 04/06/21 07:05 Seg Neutrophils # 10.9 K/mm3 (1.8-7.7) H 04/06/21 07:05 PT 13.6 Sec. (12.2-14.9) 03/28/21 21:06 INR 0.94 (0.87-1.13) 03/28/21 21:06 APTT 28.2 Sec. (24.2-36.6) 03/28/21 21:06 Sodium 140 mmol/L (137-145) 04/08/21 05:09 Potassium 4.2 mmol/L (3.6-5.0) 04/08/21 05:09 Chloride 107.7 mmol/L (98-107) H 04/08/21 05:09 Carbon Dioxide 24 mmol/L (22-30) 04/08/21 05:09 Anion Gap 13 mmol/L 04/08/21 05:09 BUN 26 mg/dL (9-20) H 04/08/21 05:09 Creatinine 1.4 mg/dL (0.8-1.3) H 04/08/21 05:09 Estimated GFR > 60 ml/min 04/08/21 05:09 BUN/Creatinine Ratio 19 % 04/08/21 05:09 Glucose 137 mg/dL (75-100) H 04/08/21 05:09 POC Glucose 154 mg/dL (70-105) H 04/08/21 23:15 Calcium 9.3 mg/dL (8.4-10.2) 04/08/21 05:09 Phosphorus 3.60 mg/dL (2.5-4.5) 04/02/21 05:30 Magnesium 2.30 mg/dL (1.7-2.3) 03/28/21 21:06 Total Bilirubin 0.30 mg/dL (0.1-1.2) 04/02/21 05:30 AST 11 units/L (5-40) 04/02/21 05:30 ALT 6 units/L (7-56) L 04/02/21 05:30 Alkaline Phosphatase 96 units/L (35-129) 04/02/21 05:30 Total Creatine Kinase 67 units/L (55-170) 03/28/21 21:06 CK-MB (CK-2) 4.5 ng/mL (0.0-4.0) H 03/28/21 21:06 CK-MB (CK-2) Rel Index 6.7 (0-4) H 03/28/21 21:06 Troponin T 0.054 ng/mL (0.00-0.029) H 03/28/21 21:06 Total Protein 6.8 g/dL (6.3-8.2) 04/02/21 05:30 Albumin 3.1 g/dL (3.9-5) L 04/02/21 05:30 Albumin/Globulin Ratio 0.8 % 04/02/21 05:30 Triglycerides 258 mg/dL (2-149) H 03/28/21 21:06 Cholesterol 176 mg/dL (50-199) 03/28/21 21:06 LDL Cholesterol Direct 100 mg/dL (50-130) 03/28/21 21:06 HDL Cholesterol 25 mg/dL (40-59) L 03/28/21 21:06 Cholesterol/HDL Ratio 7.04 % 03/28/21 21:06 Urine Color Yellow (Yellow) 03/30/21 01:24 Urine Turbidity Slightly-cloudy (Clear) 03/30/21 01:24 Urine pH 5.0 (5.0-7.0) 03/30/21 01:24 Ur Specific [place] 1.012 (1.003-1.030) 03/30/21 01:24 Urine Protein 100 mg/dl mg/dL (Negative) 03/30/21 01:24 Urine Glucose (UA) Neg mg/dL (Negative) 03/30/21 01:24 Urine Ketones Neg mg/dL (Negative) 03/30/21 01:24 Urine Blood Neg (Negative) 03/30/21 01:24 Urine Nitrite Neg (Negative) 03/30/21 01:24 Urine Bilirubin Neg (Negative) 03/30/21 01:24 Urine Urobilinogen < 2.0 mg/dL (<2.0) 03/30/21 01:24 Ur Leukocyte Esterase Lg (Negative) 03/30/21 01:24 Urine WBC (Auto) 134.0 /HPF (0.0-6.0) H 03/30/21 01:24 Urine RBC (Auto) 12.0 /HPF (0.0-6.0) 03/30/21 01:24 Urine Bacteria (Auto) 1+ /HPF (Negative) 03/30/21 01:24 Urine Mucus Few /HPF 03/30/21 01:24 Immunofix Electrophor see below 03/29/21 09:59 AKASH Screen Negative (Negative) 03/29/21 09:59 Proteinase 3 (PR3) Ab <1.0 AI (<1.0) 03/29/21 09:59 Myeloperoxidase Ab <1.0 AI (<1.0) 03/29/21 09:59 Complement C3 157 mg/dL (82-185) 03/29/21 09:59 Complement C4 54 mg/dL (15-53) H 03/29/21 09:59 Coronavirus (PCR) Positive (Negative) A 03/30/21 10:00 Hepatitis A IgM Ab Non-reactive (NonReactive) 03/29/21 09:59 Hep Bs Antigen Nonreactive (Negative) 03/29/21 09:59 Hep B Core IgM Ab Non-reactive (NonReactive) 03/29/21 09:59 Hepatitis C Antibody Non-reactive (NonReactive) 03/29/21 09:59 Garcia/IV: Voiding Method Urinal Active Medications - Current Medications Current Medications: Generic Name Dose Route Start Last Admin Trade Name Freq PRN Reason Stop Dose Admin Abacavir Sulfate 600 mg 04/01/21 17:00 04/08/21 09:39 Abacavir 300 Mg Tab PO 600 mg DAILY SUELLEN Administration Acetaminophen 650 mg 03/29/21 00:46 04/05/21 23:04 Acetaminophen 325 Mg Tab PO 650 mg Q4H PRN Administration Pain MILD(1-3)/Fever >100.5/OLIVAREZ Amlodipine Besylate 5 mg 04/08/21 10:00 04/08/21 09:41 Amlodipine 5 Mg Tab PO 5 mg QDAY SUELLEN Administration Atorvastatin Calcium 80 mg 04/02/21 22:00 04/08/21 22:58 Atorvastatin 40 Mg Tab PO 80 mg QHS SUELLEN Administration Citalopram Hydrobromide 20 mg 04/02/21 16:00 04/08/21 09:54 Citalopram 20 Mg Tab PO Not Given DAILY SUELLEN Darunavir 800 mg 04/01/21 16:30 04/08/21 09:40 Darunavir 800 Mg Tab PO 800 mg QDAY SUELLEN Administration Sodium Chloride 1,000 mls @ 75 mls/hr 04/06/21 11:15 04/07/21 22:26 Nacl 0.9% 1000 Ml IV 75 mls/hr DIRECT SUELLEN Administration Insulin Human Lispro 0 unit 04/06/21 18:00 04/08/21 23:28 Insulin Lispro 100 Unit/Ml SUB-Q 3 unit ACHS SUELLEN Administration Protocol Lamivudine 300 mg 04/01/21 17:00 04/08/21 09:40 Lamivudine 150 Mg Tab PO 300 mg DAILY SUELLEN Administration Latanoprost 1 drops 04/02/21 22:00 04/08/21 23:04 Latanoprost 0.005% Ophth Soln 2.5 Ml OD 1 drops QHS SUELLEN Administration Morphine Sulfate 4 mg 03/29/21 00:46 04/08/21 09:45 Morphine 4 Mg/1 Ml Inj IV 4 mg Q4H PRN Administration Pain , Severe (7-10) Ondansetron HCl 4 mg 03/29/21 00:46 04/08/21 22:58 Ondansetron 4 Mg/2 Ml Inj IV 4 mg Q8H PRN Administration Nausea And Vomiting Oxycodone/Acetaminophen 1 tab 03/30/21 14:16 04/09/21 06:00 Oxycodone /Acetaminophen 5-325mg Tab PO 1 tab Q6H PRN Administration Pain, Moderate (4-6) Ritonavir 100 mg 04/01/21 16:30 04/08/21 09:38 Ritonavir 100 Mg Tab PO 100 mg QDAY SUELLEN Administration Sodium Chloride 10 ml 03/29/21 10:00 04/08/21 23:05 Sodium Chloride 0.9% 10 Ml Flush Syringe IV 10 ml BID SUELLEN Administration Sodium Chloride 10 ml 03/29/21 00:46 Sodium Chloride 0.9% 10 Ml Flush Syringe IV PRN PRN LINE FLUSH Timolol Maleate 1 drops 04/02/21 22:00 04/08/21 23:00 Timolol 0.5% Ophth Soln 5 Ml OU 1 drops BID SUELLEN Administration Nutrition/Malnutrition Assess - Dietary Evaluation Nutrition/Malnutrition Findings: Nutrition Notes Start: 03/29/21 09:49 Freq: Status: Active Protocol: Document 03/31/21 17:22 JOAQUINA (Rec: 03/31/21 17:37 JOAQUINA [email or web address]) Nutrition Notes Initial or Follow up Brief Note Current Diet Cardiac/Consistent Carbohydrates Diet (since B ). Height 6 ft 8 in Weight 93.44 kg [place] Body Weight (kg) 102.72 BMI 22.6 Weight change and time frame No body weight change reported . Weight Status Appropriate Subjective/Other Information RD consult for routine F/U on Nutrition education feasibility. Pt with HIV+ and COVID-19 pui, Pt not a candidate for nutrition education. Percent of energy/protein needs met: Prescribed Cardiac/Consistent Carbohydrates Diet provides for energy/protein needs (1, 977 Kcal/86 g) during LOS. Is patient on ventilator? No Is Patient Ambulatory and/or Out of Bed Yes REE-([place] Jeor-ambulatory/OOB) [ [id number] [id number]] Kcal/Kg value to use for calculation 22 Approximate Energy Requirements Using 6 kcal/Kg Calculation Used for Recommendations Kcal/kg Additional Notes Protein: 0.8-1 g/Kg; 74-93 g/ day. Fluids: 1 ml/Kcal, or as per MD. Nutrition Intervention Change Diet Order: Continue Cardiac/Consistent Carbohydrates Diet. Revisit per MD consult or patient Sign Off request: Additional Comments Continue monitoring food tolerance, %PO intake of meals , and BM.
[2021-04-09 10:14] LABS: Calcium 9.7 mg/dL (8.4-10.2)
[2021-04-09] MEDS: amLODIPine 5 MG TAB PO SCH (10:50)
[2021-04-09] MEDS: MORPHINE 4 MG/1 ML INJ IV PRN (10:51)
[2021-04-09] MEDS: CITALOPRAM 20 MG TAB PO SCH (10:51)
[2021-04-09] MEDS: INSULIN LISPRO 100 UNIT/ML SUB-Q SCH ×2 (10:52→22:40)
[2021-04-09] MEDS: TIMOLOL 0.5% OPHTH SOLN 5 ML OU SCH ×2 (10:59→22:41)
[2021-04-09] MEDS: DOLUTEGRAVIR 50 MG TAB PO SCH (11:13)
[2021-04-09] MEDS: RITONAVIR 100 MG TAB PO SCH (11:13)
[2021-04-09] MEDS: ABACAVIR 300 MG TAB PO SCH (11:13)
[2021-04-09] MEDS: DARUNAVIR 800 MG TAB PO SCH (11:14)
--- NOTE | 2021-04-09 13:10 | Discharge Summary ---
Providers - Providers Date of Admission: 03/29/21 00:01 Date of discharge: 04/02/21 Attending physician: CRISTOPHER HELMS 03/28/21 23:36 Consult to Physician [CONS] Urgent Comment: Dr. Vasquez spoke with Dr. Shah @ [phone] Consulting Provider: PIEDAD SHAH Physician Instructions: Reason For Exam: Hyperkalemia 03/29/21 00:51 Consult to Dietitian/Nutrition [CONS] Routine Physician Instructions: Reason For Exam: Reason for Consult: Diet education 03/29/21 06:06 Consult to Physician [CONS] Routine Comment: Consulting Provider: HETAL VALADEZ Physician Instructions: Reason For Exam: Left hip fracture 03/31/21 12:31 Physical Therapy Evaluation and Treat [CONS] Urgent Comment: Reason For Exam: L femur fracture. No surgery just physical therapy Weight bearing status?: Toe touch 03/31/21 18:07 Consult to Physician [CONS] Routine Comment: Consulting Provider: RUBIO RICHARDSON Physician Instructions: Reason For Exam: COVID +ve, HIV Physical Therapy Evaluation and Treat [CONS] Routine Comment: Reason For Exam: Debility 03/31/21 18:08 Physical Therapy Evaluation and Treat [CONS] Routine Comment: Reason For Exam: Debility 04/01/21 15:49 Physical Therapy Evaluation and Treat [CONS] Urgent Comment: Reason For Exam: PT to re-yuan for possible acute rehab placement 04/04/21 16:30 Consult to Case Management [CONS] Routine Services Needed at Discharge: Home Health Services Physical Therapy Notified:: no Additional Physician Instructions: home physical therapy 04/04/21 16:34 Physical Therapy Evaluation and Treat [CONS] Routine Comment: Reason For Exam: gait training Weight bearing status?: Partial wt bearing Assistive devices?: walker 04/05/21 15:21 Consult to Case Management [CONS] Routine Services Needed at Discharge: Physical Therapy Notified:: huyen Phone number called:: [phone] Was contact made?: No Additional Physician Instructions: physician requests SNF placement post discharge Primary care physician: [facility] Hospitalization Reason for admission: hip fracture Condition: Fair Hospital course: 60-year-old -[place] male with known history of hypertension, HIV and history of bilateral hip replacement brought into the emergency room for evaluation of left hip pain and syncope. Patient was at a grocery store and finished checking out when he felt lightheaded and dizzy and subsequently found himself on the floor. He denied any head injury and denied any headache any blurry vision and no diaphoresis. Patient denied any chest pain or shortness of breath, no nausea vomiting no abdominal pain. Upon arrival in the emergency room today he complained of severe pain in his left hip. Work-up in the emergency room with x-ray of the hip revealing acute fracture of the proximal femoral shaft which extended towards the base of the greater trochanter. CT scan of the head shows no acute intracranial abnormality. Patient was admitted with diagnosis of fracture periprosthetic left proximal femur, hypokalemia, hypertension, COVID-19 positive as an outpatient, history of HIV infection, acute kidney injury on CKD Hospital course: 03/30: Continue to monitor potassium and creatinine level. Nephrology following. COVID-19 test is positive but patient is asymptomatic so no need for dexamethasone or remdesivir. Will consult ID for further recommendation. Ordered PT eval 03/31: Improved potassium and creatinine level. Wait for PT eval and ID recommendation. Monitor BMP. If BMP stable and clears by PT possible discharge tomorrow 04/01/2021: Patient is alert and oriented to her but not in acute distress at rest. Patient reports that he has not been able to get out of bed since admitted due to significant pain from the fracture and left femur. He had been living independently until he had a dizzy spell and fell at a store when he went there to buy medications for COVID-19 positive test. Patient reports that he is fully vaccinated and was staying at home. Per patient, routine test at PCPs office was positive for COVID-19. Currently patient has been free of respiratory symptoms like cough, dyspnea or hypoxia. Patient states that he cannot be discharged since he is bedbound from pain. I called and spoke to orthopedic who will reevaluate patient. I also discussed with the case repairer for possible subacute rehab placement. Creatinine improved/stable 2.3, 2.6 and 2.0., Nephrology following. 04/02, scheduled for orthopedic surgery tomorrow. Pain control. Remains bedbound. Stable. 04/03: Surgery rescheduled for tomorrow. Pain controlled adequately. No acute respiratory symptoms. ANGI improving. 04/04: Postoperative stable. ANGI improving. Home PT versus rehab placement. He lives alone. 04/05/2021 Patient stable Physical therapy Home versus rehab placement The duration of the patient's hospital stay was awaiting rehab placement. Patient was noted to have a hemoglobin of 6.9 on 04/06 that was not addressed. We will check CBC and if greater than 7.0 patient will likely discharge. However, if hemoglobin is less than 7 we will transfuse PRBCs. Anemia is likely secondary to blood loss from surgery. Dedicated discharge time 32 minutes Disposition: 03 [facility] Final Discharge Diagnosis (Prints w/discharge instructions): Acute kidney injury on CKD, hip fracture, hyperkalemia, hypertension, COVID-19 Core Measure Documentation - Palliative Care Palliative Care/ Comfort Measures: Not Applicable - Core Measures Any of the following diagnoses?: none Exam - Constitutional Vitals: Temp Pulse Resp BP Pulse Ox 98.2 F 79 20 137/86 99 04/09/21 06:43 04/09/21 10:50 04/09/21 06:43 04/09/21 10:50 04/09/21 06:43 General appearance: Present: no acute distress, well-nourished - EENT Eyes: Present: PERRL ENT: hearing intact, clear oral mucosa - Neck Neck: Present: supple, normal ROM - Respiratory Respiratory effort: normal Respiratory: bilateral: CTA - Cardiovascular Heart Sounds: Present: S1 & S2. Absent: rub, click - Extremities Extremities: pulses symmetrical, No edema Peripheral Pulses: within normal limits - Abdominal General gastrointestinal: Present: soft, non-tender, non-distended, normal bowel sounds Male genitourinary: Present: normal - Integumentary Integumentary: Present: clear, warm, dry - Musculoskeletal Musculoskeletal: gait normal, strength equal bilaterally - Psychiatric Psychiatric: appropriate mood/affect, intact judgment & insight - Neurologic Neurologic: CNII-XII intact, moves all extremities Plan Activity: advance as tolerated Weight Bearing Status: Weight Bear as Tolerated Diet: regular Follow up with: PRIMARY CARE, [Primary Care Provider] - 3-5 Days
[2021-04-09 14:29] LABS: Basophils # (Auto) 0.2 K/mm3 (0.0-0.1); Basophils % (Auto) 1.5 % (0.0-1.8); Eosinophils # (Auto) 0.1 K/mm3 (0.0-0.4); Eosinophils % (Auto) 0.8 % (0.0-4.3); Hematocrit 22.5 % (35.5-45.6); Hemoglobin 7.3 gm/dl (11.8-15.2); Lymphocytes # (Auto) 1.8 K/mm3 (1.2-5.4); Lymphocytes % (Auto) 16.3 % (13.4-35.0); Mean Corpuscular HGB Conc 33 % (32-34); Mean Corpuscular Volume 98 fl (84-94); Monocytes # (Auto) 1.2 K/mm3 (0.0-0.8); Monocytes % (Auto) 10.7 % (0.0-7.3); Platelet Count 300 K/mm3 (140-440); Red Cell Distribution Width 12.6 % (13.2-15.2)
[2021-04-09] MEDS: ONDANSETRON 4 MG/2 ML INJ IV PRN (22:38)
[2021-04-09] MEDS: LATANOPROST 0.005% OPHTH SOLN 2.5 ML OD SCH (22:39)
[2021-04-10 04:53] VITALS: BP 132/87
[2021-04-10 07:05] LABS: Calcium 9.3 mg/dL (8.4-10.2)
[2021-04-10] MEDS: oxyCODONE /ACETAMINOPHEN 5-325MG TAB PO PRN (11:40)
[2021-04-10] MEDS: DOLUTEGRAVIR 50 MG TAB PO SCH (11:40)
[2021-04-10] MEDS: amLODIPine 5 MG TAB PO SCH (11:47)
[2021-04-10] MEDS: RITONAVIR 100 MG TAB PO SCH (11:48)
[2021-04-10] MEDS: CITALOPRAM 20 MG TAB PO SCH (11:51)
[2021-04-10] MEDS: DARUNAVIR 800 MG TAB PO SCH (11:54)
[2021-04-10] MEDS: ABACAVIR 300 MG TAB PO SCH (16:31)
== END 2021-04-10 18:45 | DRG 480 ==
LOC: ED 17:47 → 4A 03-29 00:01 → 3A 04-05 21:01
PROVIDERS: ADMIT Internal Medicine Geriatric Medicine; ATTEND Hospitalist
PROC: 0QS704Z Reposition Left Upper Femur with Internal Fixation Device, Open Approach (ICD-10-PCS; principal; 2021-04-04)
DX: S72.045A Nondisplaced fracture of base of neck of left femur, initial encounter for closed fracture (principal); U07.1 COVID-19; B20 Human immunodeficiency virus [HIV] disease; N17.9 Acute kidney failure, unspecified; E87.2 Acidosis; E87.1 Hypo-osmolality and hyponatremia; N25.81 Secondary hyperparathyroidism of renal origin; M97.02XA Periprosthetic fracture around internal prosthetic left hip joint, initial encounter; N39.0 Urinary tract infection, site not specified; E87.5 Hyperkalemia; I12.9 Hypertensive chronic kidney disease with stage 1 through stage 4 chronic kidney disease, or unspecified chronic kidney disease; E11.22 Type 2 diabetes mellitus with diabetic chronic kidney disease; N18.30 Chronic kidney disease, stage 3 unspecified; Z79.899 Other long term (current) drug therapy; Z96.643 Presence of artificial hip joint, bilateral; Z90.49 Acquired absence of other specified parts of digestive tract; D63.1 Anemia in chronic kidney disease
CPT/HCPCS: 36415; 70450; 76770; 80048; 80053; 80061; 80074; 81001; 82550; 82553; 82962; 83735; 84100; 84484; 85025; 85610; 85730; 86021; 86038; 86160; 86334; 87076; 87086; 87186; 93005; 94644; G0378; J3490; J7120; Q0162; Q9967; J0610; J0690; J0696; J1100; J1170; J1815; J2250; J2270; J2405; J2704; J3010; J7030; J7070; L8699; U0003

== ENCOUNTER 2021-07-08 14:08 | Outpatient (CLI) | payer OTHER ==
--- NOTE | 2021-07-08 18:02 | XRay Report ---
Pelvis-2 frontal views INDICATION: M25.559 PAIN IN UNSPECIFIED HIP. COMPARISON: 03/28/2021 IMPRESSION: Cerclage wires have been placed along the proximal left femoral diametaphysis region wit h interval healing of the periprosthetic fracture. Bilateral hip arthroplasties are intact without co mplication. Normal alignment. Soft tissues are unremarkable. Signer Name: Magan Barber MD Signed: 07/08/2021 5:58 PM Workstation Name: [id number]
== END 2021-07-08 14:09 | disposition home or self-care (01) ==
LOC: XRAY 14:08
PROVIDERS: ATTEND Orthopaedic Surgery
DX: M25.569 Pain in unspecified knee (principal); Z96.641 Presence of right artificial hip joint; Z96.642 Presence of left artificial hip joint
CPT/HCPCS: 72170

== ENCOUNTER 2021-11-10 10:50 | Outpatient (CLI) | payer OTHER ==
--- NOTE | 2021-11-10 13:04 | XRay Report ---
LEFT HIP 4 VIEWS INDICATION / CLINICAL INFORMATION: M97.02XS . Pain in left hip. COMPARISON: Left hip intraoperative fluoroscopy performed on 04/04/2021. Left hip series from 03/28/2021. FINDINGS: BONES and JOINT(S): No acute fracture or subluxation. A previously seen intertrochanteric left femora l fracture has healed. There are unremarkable appearing hip arthroplasties. SOFT TISSUES: No significant abnormality. ADDITIONAL FINDINGS: None. IMPRESSION: 1. No acute findings. 2. Additional findings as above. Signer Name: Michael Chance MD Signed: 11/10/2021 1:00 PM Workstation Name: [id number]
== END 2021-11-10 10:51 | disposition home or self-care (01) ==
LOC: XRAY 10:50
PROVIDERS: ATTEND Orthopaedic Surgery
DX: M25.552 Pain in left hip (principal); M97.02XS Periprosthetic fracture around internal prosthetic left hip joint, sequela; X58.XXXS Exposure to other specified factors, sequela